=== PATIENT | female | born 1975 | race Caucasian/White ===

== ENCOUNTER 2019-04-30 08:12 | Outpatient (CLI) | payer BC, SELFPAY ==
--- NOTE | ~2019-04-30 | MM_ITS ---
EXAMINATION: MM screening pranay BI w danial HISTORY: Screening mammogram TECHNIQUE: Bilateral rotated lateral cc views. .............Craniocaudal and mediolateral oblique 3-D tomosynthesis images were obtained and synthetic 2-D images were generated. CAD analysis was submitt ed and interpreted. COMPARISON: 02/09/2017 bilateral digital screening mammogram 03/25/2013 bilateral diagnostic digital mammogram BREAST PARENCHYMAL COMPOSITION: The breasts are heterogeneously dense, which may obscure small masses . FINDINGS: There is no evidence of suspicious mass, calcification, or architectural distortion to sugg est malignancy in either breast. There has been no suspicious interval change. IMPRESSION: 1. No mammographic evidence of malignancy. 2. Recommend routine screening mammography in one year. BI-RADS Category 1: Negative Reviewed, dictated and finalized at location B. [facility]
[2019-04-30 10:35] LABS: Cholesterol 152 mg/dL (0-200); HDL Direct 39 mg/dL; Triglycerides 75 mg/dL (<150)
[2019-04-30 10:47] LABS: LDL Cholesterol Direct 96 mg/dL
[2019-04-30 11:27] LABS: Free T4 Free Thyroxine 1.04 ng/mL (0.78-2.19); Vitamin D 25 Hydroxy 32.1 ng/mL
== END 2019-04-30 08:13 | disposition home or self-care (01) ==
PROVIDERS: PCP Family Medicine; Visit Provider Advanced Practice Midwife
DX: Z12.31 Encounter for screening mammogram for malignant neoplasm of breast (principal); Z13.29 Encounter for screening for other suspected endocrine disorder; Z13.220 Encounter for screening for lipoid disorders; D51.1 Vitamin B12 deficiency anemia due to selective vitamin B12 malabsorption with proteinuria; E55.9 Vitamin D deficiency, unspecified
CPT/HCPCS: 36415; 77063; 77067; 80061; 82306; 82607; 84439; 84443

== ENCOUNTER 2020-02-01 08:51 | Outpatient (CLI) | payer BC, SELFPAY ==
--- NOTE | ~2020-02-01 | XR_ITS ---
EXAMINATION: XR lumbar spine 2-3V DATE: 02/01/2020 09:26 INDICATION: Low back pain. TECHNIQUE: 3 views of lumbar spine were obtained. COMPARISON: CT abdomen and pelvis 07/21/16 FINDINGS: Bone alignment is normal. Vertebral body heights and intervertebral disc heights are normal . There are small endplate osteophytes at multiple levels. There is multilevel mild facet joint osteo arthritis. Surgical clips in the right upper quadrant are likely from cholecystectomy. IMPRESSION: 1. Mild lumbar spondylosis. Reviewed, dictated and finalized at location A. Y AND FOOD LABORATORY ASSISTANT IMPRESSION: 1. Mild lumbar spondylosis.
== END 2020-02-01 08:52 | disposition home or self-care (01) ==
LOC: ANHIMG 08:59
PROVIDERS: PCP Family Medicine; Visit Provider Nurse Practitioner Family
DX: M47.816 Spondylosis without myelopathy or radiculopathy, lumbar region (principal); G89.29 Other chronic pain
CPT/HCPCS: 72100

== ENCOUNTER 2020-10-21 07:06 | Outpatient (CLI) | payer BC, SELFPAY ==
--- NOTE | ~2020-10-21 | MR_ITS ---
EXAMINATION: MR lumbar spine wo con EXAM DATE: 10/21/2020 08:48 INDICATION: M54.41 - Lumbago with sciatica, right side. Low back pain. TECHNIQUE: Multi-sequential, multiplanar MR images of the lumbar spine were obtained without contrast . Sagittal T1, T2, T2 fat saturation images. Axial T2 weighted images. There is no prior study for comparison. FINDINGS: Several small vertebral body hemangiomas. Mild lower lumbar disc desiccation. Small annular fissure at L5-S1. The vertebral bodies are aligned in the AP dimension. The conus medullaris termina cierra at the L1/2 level and has normal signal intensity and morphology. Paraspinal soft tissue is unre markable. Level by level evaluation: T12-L1: Disc does not extend beyond the endplate margin. Facet arthropathy: None. Neural foraminal stenosis: No stenosis. Central canal stenosis: No stenosis. L1-L2: Disc does not extend beyond the endplate margin. Facet arthropathy: None. Neural foraminal stenosis: No stenosis. Central canal stenosis: No stenosis. L2-L3: Disc does not extend beyond the endplate margin. Facet arthropathy: Mild. Neural foraminal stenosis: No stenosis. Central canal stenosis: No stenosis. L3-L4: There is a mild diffuse disc bulge. Facet arthropathy: Mild to moderate . Neural foraminal stenosis: No stenosis. Central canal stenosis: No stenosis. L4-L5: There is a mild diffuse disc bulge. Facet arthropathy: Mild to moderate. Neural foraminal stenosis: Mild bilateral. Central canal stenosis: No stenosis. L5-S1: There is a mild diffuse disc bulge. Facet arthropathy: Mild to moderate left, mild right. Neural foraminal stenosis: Mild bilateral. Central canal stenosis: No stenosis. IMPRESSION: 1. Mild lower lumbar spondylosis. Reviewed, dictated and finalized at location B.
== END 2020-10-21 07:07 | disposition home or self-care (01) ==
LOC: ANHIMG 07:12
PROVIDERS: PCP Family Medicine; Visit Provider Nurse Practitioner Family
DX: M47.817 Spondylosis without myelopathy or radiculopathy, lumbosacral region (principal); M48.07 Spinal stenosis, lumbosacral region
CPT/HCPCS: 72148

== ENCOUNTER 2020-12-18 09:07 | Outpatient (CLI) | payer BC, SELFPAY ==
--- NOTE | ~2020-12-18 | MM_ITS ---
EXAMINATION: MM screening pranay BI w danial HISTORY: Screening mammogram TECHNIQUE: Craniocaudal and mediolateral oblique 3-D tomosynthesis images were obtained and synthetic 2-D images were generated. CAD analysis was submitted and interpreted. COMPARISON: Numerous , 02/09/2017 bilateral digital screening mammogram examinations BREAST PARENCHYMAL COMPOSITION: The breasts are heterogeneously dense, which may obscure small masses . FINDINGS: There is no evidence of suspicious mass, calcification, or architectural distortion to sugg est malignancy in either breast. There has been no suspicious interval change. IMPRESSION: 1. No mammographic evidence of malignancy. 2. Recommend routine screening mammography in one year. BI-RADS Category 1: Negative Reviewed, dictated and finalized at location A.
== END 2020-12-18 09:08 | disposition home or self-care (01) ==
LOC: ANHIMG 09:09
PROVIDERS: PCP Family Medicine; Visit Provider Advanced Practice Midwife
DX: Z12.31 Encounter for screening mammogram for malignant neoplasm of breast (principal)
CPT/HCPCS: 77063; 77067

== ENCOUNTER 2021-02-10 09:28 | Outpatient (CLI) | payer BC, SELFPAY ==
[2021-02-10 10:11] LABS: Basophils Percent Auto 0.5 % (0.2-1.2); Eosinophils Absolute Auto 0.2 K/mm3 (0-0.3); Eosinophils Percent Auto 1.9 % (0-4.4); Hematocrit 35.2 % (37.0-47.0); Hemoglobin 11.1 g/dL (12.0-15.0); Immature Granulocyte Absolute 0.03 K/mm3 (0.00-0.031); Immature Granulocyte Percent A 0.4 % (0-0.5); Lymphocytes Percent Auto 26.5 % (18.3-44.2); Mean Corpuscular HGB Conc 31.5 g/dl (32-36); Mean Corpuscular Hemoglobin 24.2 pg (26-34); Mean Corpuscular Volume 76.7 fl (80-100); Mean Platelet Volume 9.1 fl (7.4-10.4); Monocytes Absolute Auto 0.5 K/mm3 (0.1-0.6); Monocytes Percent Auto 6.3 % (2.6-8.5); Neutrophils Absolute Auto 5.3 K/mm3 (1.3-6.7); Neutrophils Percent Auto 64.4 % (45.5-73.1); Platelet Count Result 411 k/mm3 (150-375); Red Blood Count 4.59 M/mm3 (4.2-5.4); Red Cell Distribution Width 16.2 % (11.5-14.5); White Blood Count 8.3 K/mm3 (4.5-10.0)
[2021-02-10 10:24] LABS: Alanine Aminotransferase 16 U/L (4-35); Albumin Level 4.5 g/dL (3.5-5.1); Alkaline Phosphatase 100 U/L (38-126); Anion Gap 10 mmol/L (8-16); Aspartate Amino Transferase 20 U/L (14-36); Bilirubin,Total 0.5 mg/dL (0.2-1.3); Blood Urea Nitrogen 17 mg/dL (7-17); Calcium 9.3 mg/dL (8.4-10.2); Carbon Dioxide 23 mmol/L (22-30); Chloride 104 mmol/L (98-107); Cholesterol 176 mg/dL (0-200); Estimated Glomerular Filt Rate > 60; Glucose 101 mg/dL (65-110); HDL Direct 42 mg/dL; Potassium 4.1 mmol/L (3.4-5.0); Sodium 137 mmol/L (137-145); Triglycerides 67 mg/dL (<150)
[2021-02-10 10:35] LABS: LDL Cholesterol Direct 113 mg/dL
[2021-02-10 11:34] LABS: Vitamin D 25 Hydroxy 39.7 ng/mL
== END 2021-02-10 09:29 | disposition home or self-care (01) ==
PROVIDERS: PCP Family Medicine; Visit Provider Nurse Practitioner Family
DX: Z13.220 Encounter for screening for lipoid disorders (principal); Z13.29 Encounter for screening for other suspected endocrine disorder; E55.9 Vitamin D deficiency, unspecified; D51.9 Vitamin B12 deficiency anemia, unspecified; R25.2 Cramp and spasm
CPT/HCPCS: 36415; 80053; 80061; 82306; 82607; 83735; 84443; 85025

== ENCOUNTER 2021-03-15 09:34 | Outpatient (CLI) | payer BC, SELFPAY ==
[2021-03-15 09:53] LABS: Hematocrit 37.1 % (37.0-47.0); Hemoglobin 11.5 g/dL (12.0-15.0); Mean Corpuscular Hemoglobin 24.2 pg (26-34); Mean Corpuscular Volume 78.1 fl (80-100); Mean Platelet Volume 8.8 fl (7.4-10.4); Platelet Count Result 401 k/mm3 (150-375); Red Blood Count 4.75 M/mm3 (4.2-5.4); Red Cell Distribution Width 16.1 % (11.5-14.5); White Blood Count 8.6 K/mm3 (4.5-10.0)
== END 2021-03-15 09:35 | disposition home or self-care (01) ==
PROVIDERS: PCP Family Medicine; Visit Provider Nurse Practitioner Family
DX: D69.6 Thrombocytopenia, unspecified (principal)
CPT/HCPCS: 36415; 85027

== ENCOUNTER 2021-05-13 11:10 | Outpatient (CLI) | payer BC, SELFPAY ==
[2021-05-13 14:06] LABS: Hematocrit 39.1 % (37.0-47.0); Hemoglobin 12.2 g/dL (12.0-15.0); Mean Corpuscular HGB Conc 31.2 g/dl (32-36); Mean Corpuscular Hemoglobin 25.4 pg (26-34); Mean Corpuscular Volume 81.5 fl (80-100); Mean Platelet Volume 9.8 fl (7.4-10.4); Platelet Count Result 383 k/mm3 (150-375); Red Cell Distribution Width 17.8 % (11.5-14.5); White Blood Count 8.1 K/mm3 (4.5-10.0)
[2021-05-13 14:37] LABS: Iron 50 ug/dL (37-170)
[2021-05-13 14:46] LABS: Percent Iron Saturation 13 % (20-50)
== END 2021-05-13 11:11 | disposition home or self-care (01) ==
PROVIDERS: PCP Family Medicine; Visit Provider Nurse Practitioner Family
DX: R79.89 Other specified abnormal findings of blood chemistry (principal)
CPT/HCPCS: 36415; 83540; 83550; 85027

== ENCOUNTER 2021-07-02 13:11 | Outpatient (CLI) | payer BC, SELFPAY ==
[2021-07-02 13:40] LABS: Basophils Absolute Auto 0.1 K/mm3 (0.0-0.1); Basophils Percent Auto 0.6 % (0.2-1.2); Eosinophils Absolute Auto 0.1 K/mm3 (0-0.3); Hematocrit 41.9 % (37.0-47.0); Immature Granulocyte Absolute 0.02 K/mm3 (0.00-0.031); Immature Granulocyte Percent A 0.2 % (0-0.5); Lymphocytes Absolute Auto 2.43 K/mm3 (0.9-3.2); Mean Corpuscular Hemoglobin 25.2 pg (26-34); Mean Corpuscular Volume 81.4 fl (80-100); Mean Platelet Volume 9.2 fl (7.4-10.4); Monocytes Absolute Auto 0.5 K/mm3 (0.1-0.6); Monocytes Percent Auto 5.6 % (2.6-8.5); Neutrophils Absolute Auto 5.3 K/mm3 (1.3-6.7); Neutrophils Percent Auto 63.6 % (45.5-73.1); Platelet Count Result 416 k/mm3 (150-375); Red Blood Count 5.15 M/mm3 (4.2-5.4); Red Cell Distribution Width 16.4 % (11.5-14.5); White Blood Count 8.4 K/mm3 (4.5-10.0)
[2021-07-02 13:52] LABS: CRP 0.7 mg/dL (<1.0)
[2021-07-02 14:10] LABS: Iron 81 ug/dL (37-170)
[2021-07-02 14:20] LABS: Percent Iron Saturation 20 % (20-50)
[2021-07-03 01:12] LABS: Erythrocyte Sedimentation Rate 14 mm/hr (0-20)
== END 2021-07-02 13:12 | disposition home or self-care (01) ==
PROVIDERS: PCP Family Medicine; Visit Provider Internal Medicine Hematology & Oncology
DX: D50.9 Iron deficiency anemia, unspecified (principal)
CPT/HCPCS: 36415; 82728; 83540; 83550; 85025; 85652; 86140

== ENCOUNTER 2021-08-20 13:20 | Outpatient (CLI) | payer BC, SELFPAY ==
--- NOTE | ~2021-08-20 | MMUS_ITS ---
EXAMINATION: MM diagnostic pranay RT w danial, US breast RT complete HISTORY: Lateral right breast pain TECHNIQUE: ML, MLO and CC 3-D tomosynthesis images of the right breast were performed and synthetic 2 -D images were generated. CAD analysis was submitted and interpreted. High resolution complete right breast ultrasound including all 4 quadrants and subareolar area was performed. COMPARISON: 12/14/2020, 04/2019, 02/09/2017 bilateral screening mammogram examinations BREAST PARENCHYMAL COMPOSITION: The breasts are heterogeneously dense, which may obscure small masses . FINDINGS: MAMMOGRAPHIC FINDINGS: No suspicious mass or architectural distortion, malignant calcification, skin thickening or retractio n or significant new or developing density is detected. ULTRASOUND: 10:00 5 cm from nipple: 8.5 x 5.5 x 7 mm simple cyst with through transmission posterior enhancement. No suspicious mass or shadowing of the right breast is detected. IMPRESSION: 1. Benign findings; no mammographic evidence of malignancy 2. Routine mammographic screening is recommended BI-RADS Category 2: Benign finding(s). Reviewed, dictated and finalized at location A. IMPRESSION: 1. Benign findings; no mammographic evidence of malignancy 2. Routine mammographic screening is recommended BI-RADS Category 2: Benign finding(s).
== END 2021-08-20 13:21 | disposition home or self-care (01) ==
PROVIDERS: PCP Family Medicine; Visit Provider Obstetrics & Gynecology
DX: N64.4 Mastodynia (principal)
CPT/HCPCS: 76641; 77061; 77065; G0279

== ENCOUNTER 2021-09-06 15:20 | Outpatient (CLI) | payer BC, SELFPAY ==
[2021-09-06 15:41] LABS: Anion Gap 9 mmol/L (8-16); Blood Urea Nitrogen 14 mg/dL (7-17); Calcium 8.7 mg/dL (8.4-10.2); Carbon Dioxide 23 mmol/L (22-30); Chloride 105 mmol/L (98-107); Estimated Glomerular Filt Rate > 60; Glucose 87 mg/dL (65-110); Potassium 3.8 mmol/L (3.4-5.0); Sodium 137 mmol/L (137-145)
== END 2021-09-06 15:21 | disposition home or self-care (01) ==
LOC: ANHLAB 15:21
PROVIDERS: PCP Family Medicine; Visit Provider Family Medicine
DX: R60.0 Localized edema (principal)
CPT/HCPCS: 36415; 80048

== ENCOUNTER 2021-10-14 12:33 | Outpatient (CLI) | payer BC, SELFPAY ==
[2021-10-14 13:33] LABS: Basophils Absolute Auto 0.1 K/mm3 (0.0-0.1); Basophils Percent Auto 0.9 % (0.2-1.2); Eosinophils Absolute Auto 0.2 K/mm3 (0-0.3); Eosinophils Percent Auto 2.5 % (0-4.4); Hematocrit 41.1 % (37.0-47.0); Hemoglobin 13.7 g/dL (12.0-15.0); Immature Granulocyte Absolute 0.04 K/mm3 (0.00-0.031); Immature Granulocyte Percent A 0.5 % (0-0.5); Lymphocytes Absolute Auto 2.81 K/mm3 (0.9-3.2); Lymphocytes Percent Auto 36.8 % (18.3-44.2); Mean Corpuscular HGB Conc 33.3 g/dl (32-36); Mean Corpuscular Hemoglobin 26.9 pg (26-34); Mean Corpuscular Volume 80.6 fl (80-100); Mean Platelet Volume 9.1 fl (7.4-10.4); Monocytes Absolute Auto 0.6 K/mm3 (0.1-0.6); Monocytes Percent Auto 7.7 % (2.6-8.5); Neutrophils Absolute Auto 3.9 K/mm3 (1.3-6.7); Neutrophils Percent Auto 51.6 % (45.5-73.1); Platelet Count Result 382 k/mm3 (150-375); Red Cell Distribution Width 15.4 % (11.5-14.5); White Blood Count 7.6 K/mm3 (4.5-10.0)
[2021-10-14 13:42] LABS: Iron 55 ug/dL (37-170)
[2021-10-14 13:51] LABS: Percent Iron Saturation 13 % (20-50)
== END 2021-10-14 12:34 | disposition home or self-care (01) ==
PROVIDERS: PCP Family Medicine; Visit Provider Internal Medicine Hematology & Oncology
DX: D50.9 Iron deficiency anemia, unspecified (principal)
CPT/HCPCS: 36415; 82728; 83540; 83550; 85025

== ENCOUNTER 2022-02-11 08:26 | Outpatient (CLI) | payer BC, SELFPAY ==
--- NOTE | ~2022-02-11 | MM_ITS ---
EXAMINATION: MM screening pranay BI w danial HISTORY: Screening TECHNIQUE: Craniocaudal and mediolateral oblique 3-D tomosynthesis images were obtained and synthetic 2-D images were generated. CAD analysis was submitted and interpreted. COMPARISON: Comparison to multiple prior studies sequentially, with oldest reviewed study dated 02/26. BREAST PARENCHYMAL COMPOSITION: The breasts are heterogeneously dense, which may obscure small masses . FINDINGS: There is developing asymmetry in the upper outer quadrant of the left breast. The right kranthi ast is stable without evidence for malignancy. IMPRESSION: 1. Developing right breast asymmetry. 2. Additional mammographic views and possible breast ultrasound are recommended. BI-RADS Category 0: Incomplete: Needs additional imaging evaluation. Reviewed, dictated and finalized at location A. 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 Developing right breast asymmetry. 2. Additional mammographic views and possible breast ultrasound are recommended . BI-RADS Category 0: Incomplete: Needs additional imaging evaluation.
== END 2022-02-11 08:27 | disposition home or self-care (01) ==
PROVIDERS: PCP Family Medicine; Visit Provider Advanced Practice Midwife
DX: Z12.31 Encounter for screening mammogram for malignant neoplasm of breast (principal); R92.8 Other abnormal and inconclusive findings on diagnostic imaging of breast
CPT/HCPCS: 77063; 77067

== ENCOUNTER 2022-02-12 15:29 | Emergency (ER) | payer BC, SELFPAY ==
--- NOTE | ~2022-02-12 | XR_ITS ---
EXAM: XR foot RT min 3V DATE: 02/12/2022 15:45 HISTORY: dropped dumbbell 4-5 metatarsals an hour ago . COMPARISON: None available. FINDINGS: Normal mineralization. No fracture or dislocation. No lytic or blastic lesion. Joint space s are maintained. Plantar enthesopathy. No erosion or periosteal change. Soft tissues within normal l imits. IMPRESSION: No acute osseous finding in the right foot. Reviewed, dictated and finalized at location K. 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
[2022-02-12 15:29] VITALS: BP 142/72; PULSE 94; RESP 18; TEMP 36.9; O2SAT 99
--- NOTE | 2022-02-12 15:45 | ED.LOWEXIN ---
HPI - Extremity Injury (Lower) General Chief Complaint: Extremity Injury, Lower Stated Complaint: Rt Foot Pain Time Seen by Provider: 02/12/22 15:40 Source: patient Mode of arrival: ambulatory Limitations: no limitations History of Present Illness HPI Narrative: Ms. Jameson is a 46-year-old female patient presenting to clinic today with complaints of right foot pain after dropping a 15 lb weight on top of her right foot. She reports that she had the 15 lb weight sitting on a garbage can to keep their [place] from getting in the garbage and she lifted the trash can up the throw something away and put the weight back down in a roll off and landed on her foot Related Data Home Medications Medication Instructions Recorded Confirmed cyclobenzaprine 10 mg tablet 10 mg PO TID PRN Muscle Spasm 02/12/22 02/12/22 Allergies Allergy/AdvReac Type Severity Reaction Status Date / Time No Known Allergies Allergy Verified 02/12/22 15:42 Review of Systems Review of Systems: Pertinent positives per HPI. Patient denies any fever, chills, rash, headache, visual changes, dizziness, cough, runny nose, sore throat, shortness of breath, chest pain, palpitations, nausea, vomiting, diarrhea, constipation, abdominal pain, or any urinary issues. [facility] Past Medical History Medical History Benign positional vertigo BMI 34.0-34.9,adult BMI 36.0-36.9,adult BMI 37.0-37.9, adult COVID-19 Leg edema Family History Family History Father Family history of malignant neoplasm of urinary bladder COVID-19 Mother No problems noted. Sibling No problems noted. 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 There is no relevant family history pertinent to the patient complaint. Exam Narrative: General: Well-developed, well nourished, in no apparent distress Head: Normocephalic, atraumatic. Cardio: Regular rate and rhythm, s1 and s2 normal, no murmur appreciated. Resp: Clear to auscultation bilaterally, no rhonchi, rales, wheezing or rubs. Musculoskeletal: No deformity, bruising and swelling over the right 5th metatarsal and phalanx, tender to palpation over the 5th and 4th metatarsals and the 5th phalanx, limited range of motion of the 5th and 4th toes due to pain, muscle strength strong and equal, peripheral pulse strong, no cyanosis, normal gait and station Course Course Emergency Course: Portions of this record may have been created with voice recognition software. Level of Care: Express Care Visit Vital Signs Vital signs: Vital signs reviewed MDM - Extremity Injury (Lower) MDM Narrative Medical decision making narrative: At the time of visit patient is resting comfortably on the exam table. Imaging Data Radiologist's impression: Close Foot X-Ray (Signed) YoussefJose - 02/12/22 Launch[facility] [address] XRay Report Signed Patient: Sheri Jameson : 1975 MR#: [id number] Age/Sex: 46 / F Acct:[id number] Loc: [facility]? ? ADM Date: 02/12/22Attending Dr: Ordering Physician: Yomi Ann APRN Date of Service: 02/12/22 Procedure(s): XR foot RT min 3V Accession Number(s): [id number] cc: Yomi Ann APRN; Leonides Broderick MD~ EXAM:? XR foot RT min 3V DATE: 02/12/2022 15:45 HISTORY: dropped dumbbell
== END 2022-02-12 16:00 | disposition home or self-care (01) ==
PROVIDERS: Emergency Provider Nurse Practitioner Family; PCP Family Medicine
DX: S90.31XA Contusion of right foot, initial encounter (principal); W20.8XXA Other cause of strike by thrown, projected or falling object, initial encounter; Z86.16 Personal history of COVID-19
CPT/HCPCS: 73630; 99213; G0463

== ENCOUNTER 2022-03-17 11:56 | Outpatient (CLI) | payer BC, SELFPAY ==
--- NOTE | ~2022-03-17 | MMUS_ITS ---
EXAMINATION: MM diagnostic pranay LT w danial, US breast LT limited HISTORY: Follow-up left breast asymmetry TECHNIQUE: Additional 3-D tomosynthesis images of the left breast were performed and synthetic 2-D im ages were generated. CAD analysis was submitted and interpreted. High resolution Limited left breast ultrasound was performed. COMPARISON: 02/11/2022 BREAST PARENCHYMAL COMPOSITION: The breasts are heterogeneously dense, which may obscure small masses FINDINGS: MAMMOGRAPHIC FINDINGS: There are no suspicious masses, calcifications or architectural distortion in the left breast to sugg est malignancy. ULTRASOUND: Limited left breast ultrasound: At 1:00, 8 cm from the nipple there is an oval hypoechoic mass measur ing 8 x 7 x 5 mm with small internal cysts, likely a cluster of microcysts. At 3:00, 2 cm from the ni pple, there is a probable benign complicated cyst measuring 4 mm. . IMPRESSION: 1. Probable benign left breast masses. 2. Recommend 6 month follow-up left breast ultrasound BI-RADS category 3, probably benign findings. Reviewed, dictated and finalized at location A. RMATION TECHNOLOGY DIRECTOR IMPRESSION: 1. Probable benign left breast masses. 2. Recommend 6 month follow-up left breast ultrasound BI-RADS category 3, probably benign findings.
== END 2022-03-17 11:57 | disposition home or self-care (01) ==
PROVIDERS: PCP Family Medicine; Visit Provider Advanced Practice Midwife
DX: R92.8 Other abnormal and inconclusive findings on diagnostic imaging of breast (principal); N63.21 Unspecified lump in the left breast, upper outer quadrant; N60.02 Solitary cyst of left breast
CPT/HCPCS: 76642; 77061; 77065; G0279

== ENCOUNTER 2022-03-25 09:37 | Outpatient (CLI) | payer BC, SELFPAY ==
--- NOTE | ~2022-03-25 | XR_ITS ---
Right foot Technique: AP, oblique, and lateral views were obtained. Clinical History: Pain Findings: No acute fracture or dislocation is seen. Osseous alignment is anatomic. Joint spaces are p reserved without erosive or degenerative change. Soft tissues are unremarkable. Impression: Unremarkable right foot radiographs. Reviewed, dictated and finalized at location . 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
--- NOTE | ~2022-03-25 | XR_ITS ---
Right foot Technique: AP, oblique, and lateral views were obtained. Clinical History: Pain Findings: No acute fracture or dislocation is seen. Osseous alignment is anatomic. Joint spaces are p reserved without erosive or degenerative change. Soft tissues are unremarkable. Impression: Unremarkable right foot radiographs. Reviewed, dictated and finalized at location . ACCOUNTING CLERK Impression: Unremarkable right foot radiographs.
[2022-03-25 10:07] LABS: Basophils Percent Auto 0.6 % (0.2-1.2); Eosinophils Absolute Auto 0.2 K/mm3 (0-0.3); Eosinophils Percent Auto 2.5 % (0-4.4); Hematocrit 40.4 % (37.0-47.0); Immature Granulocyte Absolute 0.02 K/mm3 (0.00-0.031); Immature Granulocyte Percent A 0.3 % (0-0.5); Lymphocytes Absolute Auto 2.25 K/mm3 (0.9-3.2); Lymphocytes Percent Auto 33.6 % (18.3-44.2); Mean Corpuscular HGB Conc 32.2 g/dl (32-36); Mean Corpuscular Hemoglobin 27.4 pg (26-34); Mean Corpuscular Volume 85.2 fl (80-100); Mean Platelet Volume 9.1 fl (7.4-10.4); Monocytes Absolute Auto 0.5 K/mm3 (0.1-0.6); Neutrophils Absolute Auto 3.7 K/mm3 (1.3-6.7); Platelet Count Result 365 k/mm3 (150-375); Red Blood Count 4.74 M/mm3 (4.2-5.4); Red Cell Distribution Width 14.3 % (11.5-14.5); White Blood Count 6.7 K/mm3 (4.5-10.0)
[2022-03-25 10:17] LABS: Alanine Aminotransferase 29 U/L (6-35); Albumin Level 4.2 g/dL (3.5-5.1); Alkaline Phosphatase 81 U/L (38-126); Anion Gap 6 mmol/L (8-16); Aspartate Amino Transferase 28 U/L (14-36); Bilirubin,Total 0.4 mg/dL (0.2-1.3); Blood Urea Nitrogen 16 mg/dL (7-17); Calcium 8.8 mg/dL (8.4-10.2); Carbon Dioxide 25 mmol/L (22-30); Chloride 108 mmol/L (98-107); Cholesterol 163 mg/dL (0-200); Estimated Glomerular Filt Rate > 60; Glucose 91 mg/dL (65-110); HDL Direct 34 mg/dL; Potassium 4.3 mmol/L (3.4-5.0); Sodium 139 mmol/L (137-145); Triglycerides 97 mg/dL (<150)
[2022-03-25 10:28] LABS: LDL Cholesterol Direct 97 mg/dL
[2022-03-25 10:51] LABS: Iron 105 ug/dL (37-170)
[2022-03-25 11:05] LABS: Percent Iron Saturation 29 % (20-50)
== END 2022-03-25 09:38 | disposition home or self-care (01) ==
PROVIDERS: PCP Family Medicine; Referring Provider Internal Medicine Hematology & Oncology; Visit Provider Nurse Practitioner Family
DX: M79.671 Pain in right foot (principal); D50.9 Iron deficiency anemia, unspecified; R59.1 Generalized enlarged lymph nodes; Z13.220 Encounter for screening for lipoid disorders; Z13.29 Encounter for screening for other suspected endocrine disorder; E55.9 Vitamin D deficiency, unspecified
CPT/HCPCS: 36415; 73630; 80053; 80061; 82306; 82728; 83540; 83550; 84443; 85025

== ENCOUNTER 2022-07-13 15:59 | Outpatient (CLI) | payer BC, SELFPAY ==
--- NOTE | ~2022-07-13 | XR_ITS ---
XR knee LT min 4V DATE: 07/13/2022 16:16 INDICATION: Left knee pain. No known injury. TECHNIQUE: Halbur and standing AP, PA and lateral views COMPARISON: May 14, 2012 left knee FINDINGS: There is interval severe medial compartment joint space narrowing with [id number] and pro minent periarticular spurring. The lateral compartment joint space is well preserved. There is mild to moderate periarticular spurring at the patellofemoral joint. No fracture or dislocation or joint effusion. No radiopaque intra-articular loose body or chondrocalc inosis is evident. No fracture, dislocation, periosteal reaction or bone destruction. 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
== END 2022-07-13 16:00 | disposition home or self-care (01) ==
LOC: ANHIMG 16:01
PROVIDERS: PCP Family Medicine; Visit Provider Family Medicine
DX: M17.12 Unilateral primary osteoarthritis, left knee (principal); M25.562 Pain in left knee
CPT/HCPCS: 73564

== ENCOUNTER → 2022-10-25 08:51 | Outpatient (CLI) | payer BC, SELFPAY ==
--- NOTE | ~2022-10-25 | MR_ITS ---
MRI of the left knee Clinical history: Pain Technique: Coronal proton density and proton density-weighted images, sagittal proton-density and T2 fat-sat images, and axial proton-density fat-saturated images were acquired. Findings: Anterior and posterior cruciate ligaments are intact. Medial collateral ligament and the la teral collateral ligament complex are intact. Popliteus tendon is intact. Lateral meniscus is intact, without evidence of tear. There is complex tearing of the posterior horn and body of the medial meniscus, which are largely macerated appearance. There is extensive high-grade chondromalacia on both sides of the medial compartment with subchondral reactive marrow edema and early subchondral cystic change in the medial tibial plateau. There are me dial joint line osteophytes. Articular cartilage in the lateral compartment is relatively well-preser kirk. There is extensive high-grade chondromalacia over the patellar apex extending to the medial face t. There is patchy moderate chondromalacia the femoral trochlea. Extensor mechanism is intact. No significant joint effusion. Minimal Bran's cyst present. Impression: Extensive complex tearing of the posterior horn and body of the medial meniscus. Severe osteoarthritis of the medial compartment, as detailed above. Moderate chondromalacia of the patellofemoral compartment. Minimal Bran's cyst. Reviewed, dictated and finalized at location . Impression: Extensive complex tearing of the posterior horn and body of the medial meniscus . Severe osteoarthritis of the medial compartment, as detailed above. Moderate chondromalacia of the patellofemoral compartment. Minimal Bran's cyst.
== END ==
DX: S83.232A Complex tear of medial meniscus, current injury, left knee, initial encounter (principal); X58.XXXA Exposure to other specified factors, initial encounter; M17.12 Unilateral primary osteoarthritis, left knee
CPT/HCPCS: 73721

== ENCOUNTER 2022-11-21 18:03 | Emergency (ER) | payer BC, SELFPAY ==
[2022-11-21 18:27] VITALS: BP 161/88; PULSE 84; RESP 18; TEMP 36.6; O2SAT 100
--- NOTE | 2022-11-21 18:40 | PC.NURSE ---
CBC & CMP sent to lab
[2022-11-21 18:42] LABS: Basophils Absolute Auto 0.1 K/mm3 (0.0-0.1); Basophils Percent Auto 0.4 % (0.2-1.2); Eosinophils Absolute Auto 0.2 K/mm3 (0-0.3); Eosinophils Percent Auto 1.6 % (0-4.4); Hematocrit 45.3 % (37.0-47.0); Hemoglobin 14.6 g/dL (12.0-15.0); Immature Granulocyte Absolute 0.08 K/mm3 (0.00-0.031); Immature Granulocyte Percent A 0.6 % (0-0.5); Lymphocytes Absolute Auto 3.29 K/mm3 (0.9-3.2); Lymphocytes Percent Auto 26.6 % (18.3-44.2); Mean Corpuscular HGB Conc 32.2 g/dl (32-36); Mean Corpuscular Volume 86.9 fl (80-100); Mean Platelet Volume 9.3 fl (7.4-10.4); Monocytes Absolute Auto 0.8 K/mm3 (0.1-0.6); Monocytes Percent Auto 6.2 % (2.6-8.5); Neutrophils Percent Auto 64.6 % (45.5-73.1); Platelet Count Result 396 k/mm3 (150-375); Red Blood Count 5.21 M/mm3 (4.2-5.4); Red Cell Distribution Width 14.3 % (11.5-14.5); White Blood Count 12.4 K/mm3 (4.5-10.0)
[2022-11-21 18:53] LABS: Alanine Aminotransferase 40 U/L (6-35); Albumin Level 4.5 g/dL (3.5-5.1); Alkaline Phosphatase 75 U/L (38-126); Anion Gap 10 mmol/L (8-16); Aspartate Amino Transferase 33 U/L (14-36); Bilirubin,Total 0.4 mg/dL (0.2-1.3); Blood Urea Nitrogen 15 mg/dL (7-17); Calcium 9.7 mg/dL (8.4-10.2); Carbon Dioxide 25 mmol/L (22-30); Chloride 104 mmol/L (98-107); Estimated CRCL calculation 97 ml/min; Estimated Glomerular Filt Rate > 60; Glucose 101 mg/dL (65-110); Potassium 4.5 mmol/L (3.4-5.0); Sodium 139 mmol/L (137-145)
--- NOTE | 2022-11-21 21:27 | PC.NURSE ---
Pt ambulated on crutches with at side, stated she was not staying and will return to ED if needed. Stated was going home with .
== END 2022-11-21 21:27 | disposition left against medical advice (07) ==
PROVIDERS: Emergency Provider Emergency Medicine; PCP Family Medicine
DX: R10.9 Unspecified abdominal pain (principal)
CPT/HCPCS: 36415; 80053; 85025; 99199

== ENCOUNTER 2022-12-28 09:53 | Outpatient (CLI) | payer BC, SELFPAY ==
[2022-12-28 10:53] LABS: Basophils Absolute Auto 0.1 K/mm3 (0.0-0.1); Basophils Percent Auto 0.7 % (0.2-1.2); Eosinophils Absolute Auto 0.1 K/mm3 (0-0.3); Eosinophils Percent Auto 1.6 % (0-4.4); Hematocrit 43.2 % (37.0-47.0); Hemoglobin 14.1 g/dL (12.0-15.0); Immature Granulocyte Absolute 0.03 K/mm3 (0.00-0.031); Immature Granulocyte Percent A 0.3 % (0-0.5); Lymphocytes Absolute Auto 2.56 K/mm3 (0.9-3.2); Lymphocytes Percent Auto 28.7 % (18.3-44.2); Mean Corpuscular HGB Conc 32.6 g/dl (32-36); Mean Corpuscular Hemoglobin 28.6 pg (26-34); Mean Corpuscular Volume 87.6 fl (80-100); Mean Platelet Volume 9.4 fl (7.4-10.4); Monocytes Absolute Auto 0.6 K/mm3 (0.1-0.6); Monocytes Percent Auto 6.7 % (2.6-8.5); Neutrophils Absolute Auto 5.5 K/mm3 (1.3-6.7); Platelet Count Result 397 k/mm3 (150-375); Red Blood Count 4.93 M/mm3 (4.2-5.4); Red Cell Distribution Width 14.1 % (11.5-14.5); White Blood Count 8.9 K/mm3 (4.5-10.0)
[2022-12-28 11:01] LABS: Alanine Aminotransferase 18 U/L (6-35); Albumin Level 4.4 g/dL (3.5-5.1); Alkaline Phosphatase 83 U/L (38-126); Anion Gap 5 mmol/L (8-16); Aspartate Amino Transferase 21 U/L (14-36); Bilirubin,Total 0.6 mg/dL (0.2-1.3); Blood Urea Nitrogen 13 mg/dL (7-17); Calcium 9.3 mg/dL (8.4-10.2); Carbon Dioxide 30 mmol/L (22-30); Chloride 102 mmol/L (98-107); Cholesterol 174 mg/dL (0-200); Estimated Glomerular Filt Rate > 60; Glucose 87 mg/dL (65-110); HDL Direct 44 mg/dL; Potassium 4.5 mmol/L (3.4-5.0); Sodium 137 mmol/L (137-145); Triglycerides 85 mg/dL (<150)
[2022-12-28 11:12] LABS: LDL Cholesterol Direct 109 mg/dL
[2022-12-28 11:27] LABS: Vitamin D 25 Hydroxy 49.3 ng/mL
== END 2022-12-28 09:54 | disposition home or self-care (01) ==
LOC: ANHLAB 09:54
PROVIDERS: PCP Family Medicine; Visit Provider Family Medicine
DX: D64.9 Anemia, unspecified (principal); Z13.220 Encounter for screening for lipoid disorders; D51.9 Vitamin B12 deficiency anemia, unspecified; E55.9 Vitamin D deficiency, unspecified
CPT/HCPCS: 36415; 80053; 80061; 82306; 82607; 84443; 85025

== ENCOUNTER 2023-01-10 10:00 | Emergency (ER) | payer BC, SELFPAY ==
--- NOTE | ~2023-01-10 | CT_ITS ---
CT of the Abdomen and Pelvis: Indication: Abdominal pain Technique: 2.5 mm axial scans were obtained through the abdomen and pelvis following intravenous adm inistration of 100 cc of Omnipaque 350. Dose reduction technique was used on this scan by utilizing a utomated exposure control and iterative reconstruction technique. The dose-length product (DLP) was 1 163.71 mGy-cm. Findings: Scans through the lung bases are unremarkable. Minimal central intrahepatic biliary prominence is probably related to prior cholecystectomy. The spl een, pancreas, adrenals and kidneys are within normal limits. No evidence of aortic aneurysm. No ly mphadenopathy. No bowel obstruction or bowel wall thickening. There is no evidence to suggest acute appendicitis. Images through the pelvis were performed. Urinary bladder unremarkable. 2.8 cm right ovarian cyst pre sent. No other adnexal mass seen. No ascites. Impression: 2.8 cm right ovarian cyst, of doubtful clinical significance. Minimal intrahepatic biliary prominence is likely related to prior cholecystectomy. Reviewed, dictated and finalized at [facility]. Impression: 2.8 cm right ovarian cyst, of doubtful clinical significance. Minimal intrahepatic biliary prominence is likely related to prior cholecystect jhony.
[2023-01-10 10:24] VITALS: BP 139/70; PULSE 68; RESP 16; TEMP 36.3
[2023-01-10 10:44] LABS: Basophils Absolute Auto 0.1 K/mm3 (0.0-0.1); Basophils Percent Auto 0.8 % (0.2-1.2); Eosinophils Absolute Auto 0.2 K/mm3 (0-0.3); Eosinophils Percent Auto 1.4 % (0-4.4); Hematocrit 45.3 % (37.0-47.0); Hemoglobin 14.4 g/dL (12.0-15.0); Immature Granulocyte Absolute 0.04 K/mm3 (0.00-0.031); Immature Granulocyte Percent A 0.4 % (0-0.5); Lymphocytes Absolute Auto 3.65 K/mm3 (0.9-3.2); Lymphocytes Percent Auto 34.4 % (18.3-44.2); Mean Corpuscular HGB Conc 31.8 g/dl (32-36); Mean Corpuscular Hemoglobin 28.2 pg (26-34); Mean Corpuscular Volume 88.8 fl (80-100); Mean Platelet Volume 9.4 fl (7.4-10.4); Monocytes Absolute Auto 0.7 K/mm3 (0.1-0.6); Monocytes Percent Auto 6.8 % (2.6-8.5); Neutrophils Percent Auto 56.2 % (45.5-73.1); Platelet Count Result 382 k/mm3 (150-375); Red Cell Distribution Width 14.2 % (11.5-14.5); White Blood Count 10.6 K/mm3 (4.5-10.0)
[2023-01-10 10:55] LABS: Alanine Aminotransferase 16 U/L (6-35); Albumin Level 4.5 g/dL (3.5-5.1); Alkaline Phosphatase 76 U/L (38-126); Anion Gap 8 mmol/L (8-16); Aspartate Amino Transferase 18 U/L (14-36); Bilirubin,Total 0.6 mg/dL (0.2-1.3); Blood Urea Nitrogen 21 mg/dL (7-17); Calcium 9.2 mg/dL (8.4-10.2); Carbon Dioxide 28 mmol/L (22-30); Chloride 104 mmol/L (98-107); Estimated CRCL calculation 96 ml/min; Estimated Glomerular Filt Rate > 60; Glucose 82 mg/dL (65-110); Lipase 57 U/L (23-300); Potassium 3.7 mmol/L (3.4-5.0); Sodium 140 mmol/L (137-145)
[2023-01-10 11:07] LABS: Appearance Urine Cloudy (Clear); Bilirubin Urine Negative (Negative); Blood Urine 2+ (Negative); Color Urine Yellow (Yellow); Glucose Urine UA Negative (Negative); Ketones Urine Negative (Negative); Leukocyte Esterase Ur 1+ LEU/UL (Negative); Nitrate Urine Negative (Negative); Protein Urine Negative (Negative); Specific Grav Ur 1.024 (1.001-1.035); Urobilinogen Urine 0.2 mg/dL (<2.0); pH Urine 5.5 (5.0-9.0)
[2023-01-10 11:11] LABS: Squamous Epithelial Cell Urine Many /hpf (Few)
[2023-01-10 11:12] LABS: Bacteria Urine 3+ /hpf
[2023-01-10 11:13] LABS: Add Urine Microscopic? YES
[2023-01-10 11:14] LABS: WBC Urine 21-50 /hpf
--- NOTE | 2023-01-10 11:15 | ED.GENADULT ---
HPI - General Adult General Chief complaint: Abdominal Pain Stated complaint: RT sd Abd pain Time Seen by Provider: 01/10/23 11:02 History of Present Illness HPI narrative: Sheri Jameson is a 47 y/o female with PMhx of appendectomy/ cholecystectomy who reports she was woken out of her sleep at 0200 this morning with right lower quadrant pain that is severe and has not improved. She reports some nausea / no vomiting last ate earlier this morning. Denies any known fever/chills. Last BM was this morning and normal/ denies changes with urination. She states that she has had some vaginal bleeding/ spotting off and on since August and is scheduled for a hysterectomy next month. Related Data Allergies Allergy/AdvReac Type Severity Reaction Status Date / Time No Known Allergies Allergy Verified 01/10/23 11:01 Review of Systems Review of Systems: CONSTITUTIONAL: Denies fever, chills, or sweats. EYES: Denies visual changes, redness, or discharge. ENT: Denies rhinorrhea, congestion, sore throat, or otalgia. CARDIOVASCULAR: Denies chest pain, palpitations, or edema. RESPIRATORY: Denies cough or dyspnea. GASTROINTESTINAL: Reports severe right lower abdominal pain, slight nausea, no vomiting, or diarrhea. GENITOURINARY: Denies dysuria or hematuria. SKIN: Denies rash or itching. MUSCULOSKELETAL: Denies back pain, joint pain, or myalgia. NEUROLOGIC: Denies headache, numbness, dizziness, or weakness. PSYCHIATRIC: Denies anxiety or depression. [facility] Past Medical History Medical History Benign positional vertigo BMI 34.0-34.9,adult BMI 36.0-36.9,adult BMI 37.0-37.9, adult BMI 38.0-38.9,adult COVID-19 Leg edema Surgical History Surgical History H/O knee surgery Family History Family History Father Family history of malignant neoplasm of urinary bladder COVID-19 Mother COPD (chronic obstructive pulmonary disease) Diabetes mellitus Sibling Diabetes mellitus Social History Social History Smoking status: Never smoker Second hand tobacco smoke exposure: Yes Alcohol intake: current Substance use: never Substance use type: does not use Lack of Transportation: No Lack of Food: Never True Current Housing: I Have Housing Concerned About Future Housing: No Difficulty Paying Gas/Electric Bills: No Difficulty Paying for Meds: No Currently Unemployed: No Education: Associate Degree Difficulty w/ Childcare or Family Care: No Living arrangements: with family Occupation/Education: occupation 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 Gender identity (if verbalized by the patient): Female Exam Narrative: GENERAL:appears to be in pain, well-nourished, and in no acute distress. HEAD: Normocephalic, atraumatic. EYES: PERRLA and EOMI. ENT: Nares clear, no rhinorrhea or epistaxis. Mucous membranes moist. Oropharynx without tonsillar hypertrophy exudate or other lesions. NECK: Supple. No adenopathy or masses. No carotid bruits or JVD CHEST: Clear to auscultation. No respiratory distress. No wheezes rales or rhonchi HEART: Regular rate and rhythm. No murmur heard. Normal peripheral pulses. ABDOMEN: Soft, nondistended, normal active bowel sounds, tender to the right lower quadrant EXTREMITIES: Normal range of motion. No edema. SKIN: Warm, dry, no rash. NEURO: No focal deficits. Alert and oriented x3. PSYCH: Normal mood and affect. Course Vital Signs Vital signs: Vital Signs Temperature 36.3 C L 01/10/23 10:24 Pulse Rate 68 01/10/23 10:24 Respiratory Rate 16 01/10/23 10:24 Blood Pressure 139/70 01/10/23 10:24 Oxygen Delivery Room Air 01/10/23 10:24 Temperature 36.3
[2023-01-10] MEDS: MORPHINE SULFATE (*CRX) 4 MG/ML INJ IV PUSH (11:30)
[2023-01-10] MEDS: ONDANSETRON INJ 4 MG/2 ML VIAL IV PUSH (11:30)
[2023-01-10 12:56] VITALS: BP 128/70; PULSE 68; RESP 20; O2SAT 98
== END 2023-01-10 12:57 | disposition home or self-care (01) ==
PROVIDERS: Emergency Medicine; Emergency Provider Nurse Practitioner Family; PCP Family Medicine
DX: N30.01 Acute cystitis with hematuria (principal); Z90.49 Acquired absence of other specified parts of digestive tract; Z86.16 Personal history of COVID-19; Z77.22 Contact with and (suspected) exposure to environmental tobacco smoke (acute) (chronic); N83.201 Unspecified ovarian cyst, right side
CPT/HCPCS: 36415; 74177; 80053; 81001; 81025; 83690; 85025; 87086; 87088; 96374; 96375; 99284; J2270; J2405; Q9967

== ENCOUNTER 2023-01-16 11:39 | Outpatient (CLI) | payer BC, SELFPAY ==
--- NOTE | ~2023-01-16 | MMUS_ITS ---
EXAMINATION: MM diagnostic pranay BI w danial, US breast BI complete HISTORY: Probable benign left breast masses reported on 03/17/2022 left diagnostic mammogram and limi milena left breast ultrasound examination. Screening of right breast. TECHNIQUE: ML, MLO and CC 3-D tomosynthesis images of both breasts were performed and synthetic 2-D i mages were generated. Bilateral rotated lateral CC views. CAD analysis was submitted and interpreted. High resolution bilateral complete breast ultrasound examination including all 4 quadrants and subar eolar areas was performed. COMPARISON: 03/17/2022 diagnostic left mammogram and limited left breast ultrasound 02/11/2022 bilateral screening mammogram BREAST PARENCHYMAL COMPOSITION: The breasts are heterogeneously dense, which may obscure small masses . FINDINGS: MAMMOGRAPHIC FINDINGS: No suspicious mass or architectural distortion, malignant calcification, skin thickening or retractio n or significant new or developing density is detected. ULTRASOUND: Right breast: 2:00 near nipple: Superficial 2.5 x 4.8 mm simple cyst 7:00 near nipple: 2.9 x 3.4 mm simple cyst 10:00 5 cm from nipple: 4.7 x 6.1 x 6.6 mm sonolucency with through transmission and posterior enhanc ement, consistent with simple cyst 10:00 4 cm from nipple: Parallel circumscribed sonolucency measuring 6.5 x 2.9 x 5.9 m, consistent wi th simple cyst Left breast: 12:00 9 cm from nipple: Parallel circumscribed heterogeneous hypoechoic/hyperechoic solid lesion suleman uring 6.8 x 4 x 7.7 mm, with through transmission and no posterior enhancement, no internal vasculari ty, benign in appearance IMPRESSION: 1. Benign findings 2. Routine mammographic screening is recommended BI-RADS Category 2: Benign finding(s). Reviewed, dictated and finalized at location A. IMPRESSION: 1. Benign findings 2. Routine mammographic screening is recommended BI-RADS Category 2: Benign finding(s).
== END 2023-01-16 11:40 | disposition home or self-care (01) ==
PROVIDERS: PCP Family Medicine; Visit Provider Nurse Practitioner Obstetrics & Gynecology
DX: R92.8 Other abnormal and inconclusive findings on diagnostic imaging of breast (principal)
CPT/HCPCS: 76641; 77062; 77066; G0279

== ENCOUNTER 2023-01-19 10:18 | Outpatient (CLI) | payer BC, SELFPAY | END 2023-01-19 10:19 | disposition home or self-care (01) | LOC: ANHSURGERY 10:22 | PROVIDERS: PCP Family Medicine; Visit Provider Obstetrics & Gynecology | DX: Z01.812 Encounter for preprocedural laboratory examination (principal); N92.0 Excessive and frequent menstruation with regular cycle | CPT/HCPCS: 36415; 86850; 86900; 86901 ==

== ENCOUNTER 2023-01-25 00:39 | Day surgery (SDC) | payer BC, SELFPAY ==
[2023-01-17 15:40] VITALS: BMI 37.3
--- NOTE | 2023-01-17 15:47 | PC.NURSE ---
Report to the Outpatient Waiting Room, entrance under the green pavilion located off [facility], at time 6:00 on date 01/25/23. Planned Procedure Time: 7:30. Time changes happen often and if your time is changed the preop area will call you the afternoon before. - You and your visitor will be asked to self-screen and do not enter if you have any COVID symptoms. - A mask is optional within the hospital at this time. Patients may have clear liquids (water, carbonated beverages, clear teas, apple juice) until 3 hours prior to surgery with a maximum of 20 ounces. - No food from midnight until time of surgery Take the following medications with a SIP of water the morning of surgery: NONE DO NOT STOP ANY OF YOUR OTHER PRESCRIPTION MEDICATIONS PRIOR TO SURGERY ?EXCEPT THE FOLLOWING Medications to discontinue per physician: VITAMINS/SUPPLEMENTS Date to take last dose: 01/21/23 Please no make-up, nail trinidadian, hairspray, perfume, deodorant, or body powder the day of surgery. No jewelry (including any body piercings) or valuables the day of surgery, leave them at home. Please take a shower or bath the night before, or the morning of, surgery with an antibacterial soap. Wear comfortable, loose fitting clothing. - Jewelry must be removed prior to entering the operating room. Rings and piercings that are not removed may be cut off. - The hospital will not accept responsibility for valuables. - Please leave all valuables, including medications, at home the day of surgery. If you are going home after surgery, a licensed party bus driver must drive you home. - NO public transportation without another adult if you receive anesthesia. - We recommend that an adult stay with you for 24 hours following discharge. - We also recommend that you do not drive, make important decision, drink alcoholic beverages, or take any drugs that were not prescribed by your health care provider for at least 24 hours after your discharge time. Follow any additional instructions given to you from your surgeon. If you or anyone in your household have experienced Covid symptoms in the past week, please notify your surgeon or the nurse liaison at the phone number below for possible testing. Telephone instructions given to PT - BALTAZAR SHELBY and asked if any additional questions and then verbalized understanding. Patient advised to call surgeon office or pre surgery nurse liaison [phone] if any additional questions.
[2023-01-25] VITALS (10 sets, daily range): BP systolic 113–141; BP diastolic 53–79; PULSE 61–94; RESP 12–18; TEMP 36.2–37.1; O2SAT 96–100; BMI 36.8
[2023-01-25] MEDS: LACTATED RINGERS 1,000 ML 30 ML IV CONT ×2 (06:35→09:33)
[2023-01-25] MEDS: ACETAMINOPHEN 500 MG TABLET 1000 MG PO (06:46)
[2023-01-25] MEDS: KETOROLAC 15 MG/ML VIAL (*BKC) IV PUSH (06:46)
--- NOTE | 2023-01-25 06:53 | WPDANESEPPF ---
Anes - Initial Pre Proc Eval Procedure: Operation Date: 01/25/23 07:30 Proposed Procedures p Total Laparoscopic Hysterectomy with Bilateral Salpingectomy - Wesley Mendoza MD Date/Time: 01/25/23 06:53 Surgeon: Wesley Mendoza MD Pre Op Diagnosis: menorrhagia Patient Data Age: 47 Gender: F Height: 1.7 m Weight: 108 kg Allergies Allergy/AdvReac Type Severity Reaction Status Date / Time No Known Allergies Allergy Verified 01/25/23 06:24 Home Medications Medication Instructions Recorded Confirmed Type tramadol 50 mg tablet 50 mg PO Q8H PRN pain #60 tabs 07/13/22 01/17/23 Rx tizanidine 4 mg tablet 4 mg PO QHS PRN muscle spasticity 12/19/22 01/17/23 Rx #30 tabs calcium carbonate 600 mg-vitamin 1 tablet PO DAILY 01/17/23 01/25/23 History D3 5 mcg (200 unit) tablet multivitamin 1 tablet PO DAILY 01/17/23 01/25/23 History Patient hx anesthesia problems: none Family hx anesthesia problems: none Results Review: All pre-operative results and documents have been reviewed as part of the pre-operative evaluation. [facility] Past Medical History Medical History Benign positional vertigo BMI 34.0-34.9,adult BMI 36.0-36.9,adult BMI 37.0-37.9, adult BMI 38.0-38.9,adult COVID-19 Leg edema Surgical History Surgical History H/O knee surgery Family History Family History Father Family history of malignant neoplasm of urinary bladder COVID-19 Mother COPD (chronic obstructive pulmonary disease) Diabetes mellitus Sibling Diabetes mellitus Social History Social History Smoking status: Never smoker Second hand tobacco smoke exposure: Yes Alcohol intake: current Alcohol use details: 1/MONTH Substance use: never Substance use type: does not use Lack of Transportation: No Lack of Food: Never True Current Housing: I Have Housing Concerned About Future Housing: No Difficulty Paying Gas/Electric Bills: No Difficulty Paying for Meds: No Currently Unemployed: No Education: Associate Degree Difficulty w/ Childcare or Family Care: No Living arrangements: with family Occupation/Education: occupation 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 Gender identity (if verbalized by the patient): Female Spiritual care concerns: No Anes - Eval Final PreProcedure Day of Procedure 01/25/23 06:53 Patient weight: obese Heart: regular rate and rhythm Lungs: clear to auscultation Airway: Mallampati scale class II Neurological: alert and oriented Last oral intake: >/= 8 hours ASA classification: III Emergent: no Anesthetic plan: proceed Anesthesia type and monitoring: general ETT and standard monitoring Results Review: All pre-operative results and documents have been reviewed as part of the pre-operative evaluation. Informed Consent: The patient's anesthetic plan and its attendant risks and benefits were discussed with the patient/family/POA. Questions were solicited and answers provided to the satisfaction of the patient/family/POA.
--- NOTE | 2023-01-25 07:34 | WPDHPUPDATE1 ---
History and Physical Update Update Date/Time: 01/25/23 07:34 History and Physical has been reviewed, including an updated exam of the patient. There are NO changes in the patient's condition. Risks, benefits, and alternatives have been discussed and questions answered. Patient agrees to proceed with procedure.
[2023-01-25] MEDS: ceFAZolin 2 GM/D5W 50 ML 2 GM/50 ML BAG IVPB (07:38)
[2023-01-25] MEDS: ceFAZolin SODIUM 1 GM VIAL (08:17)
--- NOTE | 2023-01-25 09:33 | P.OP_ITS ---
Procedure Note - Detailed Date of Procedure 01/25/23 Pre-op Diagnosis menorrhagia Post-op Diagnosis Same Procedure Performed Total laparoscopic hysterectomy. Bilateral salpingectomy Surgeon Wesley Mendoza MD Anesthesia General Findings Enlarged fibroid uterus, normal-appearing tubes and ovaries, normal vulva, va dee dee, cervix. Description of Procedure This patient was taken to the operating room. She was prepped and draped in the dorsal lithotomy position after induction of general anesthesia. The uterine manipulator and Alexandria cup were placed. This was done with a speculum and tenaculum. The speculum was placed. The cervix was grasped with a tenaculum. The stay sutures were placed at 3 and 9:00 a.m.. The stay sutures of 0 Vicryl were brought through the appropriately sized Alexandria cup. The tip of the MAX manipulator was placed in the intrauterine cavity. The cup was slid into place around the cervix and into the fornices. It was locked into place. The sutures were then wrapped around the handle and tied under tension. A 5 mm skin incision was made in the left upper quadrant the abdomen. A 5 mm trocar was inserted into the intrauterine cavity under direct visualization of the scope. Pneumoperitoneum was achieved. A left lower quadrant 11 mm incision was made with scalpel. An 11 mm trocar was inserted into the anterior abdominal cavity under direct visualization the scope. A 5 mm infraumbilical incision was made with a scalpel and a 5 mm trocar was inserted the intra-abdominal cavity under direct visualization of the scope. Bilateral ureteral lysis was performed. This was done from the pelvic brim down to the uterine artery. This was done with careful dissection using sharp and blunt dissection. The fallopian tubes were removed bilaterally. The mesosalpinx around the fallopian tubes were cauterized transected with LigaSure cautery. This was done in a bilateral fashion from the ovary to the uterine cornua. The fallopian tube was transected at the uterine cornu and amputated. The tube was taken out the left lower quadrant trocar site. In a stepwise fashion along the lateral aspects of the uterus the round ligament and broad ligaments were cauterized transected down to the level of the uterine arteries. A bladder flap was created in the bladder was moved distally to the end of the cervix and over the Alexandria cup. The bilateral uterine arteries were cauterized and transected. Colpotomy was then performed. In a circumferential fashion the vagina was transected using unipolar cautery. The incision was made down on the Alexandria cup. The uterus and cervix were taken out through the vagina. A pneumo occluder was placed in the vagina. The vaginal cuff was closed with a 0 V lock suture in a running fashion. The pelvis was irrigated with copious amounts antibiotic irrigation. The ureters were again examined and found to be intact and flowing freely under the uterine arteries into the bladder. The bladder was intact. It was examined directly. The vagina was irrigated with Betadine solution after removal of the Pneumo occluder. The patient was taken to recovery room. She was stable condition. Sponge lap and needle counts were correct x2. Estimated Blood Loss 75 Drains Yes Packing No Pathology Yes Complications No immediate complications Condition Stable Disposition Floor
[2023-01-25] MEDS: fentaNYL CITRATE INJ (*CRX) 100 MCG/2 ML VIAL 25 MCG IV PUSH ×8 (09:54→10:29)
[2023-01-25] MEDS: ONDANSETRON INJ 4 MG/2 ML VIAL IV PUSH ×2 (09:57→18:19)
[2023-01-25] MEDS: HYDROmorphone HCL INJ (*CRX) 1 MG/ML SYR 0.5 MG IV PUSH ×4 (10:15→10:33)
--- NOTE | 2023-01-25 10:50 | ADMGEN ---
This patient, Sheri Jameson, was admitted to OB 2nd Floor Room 276-00. Patient/family oriented to hospital policies and general routines including ID bracelet, bed and alarms, visiting hours, pain management, procedures, bathroom and other care routines, personal items, smoking policy, room service/diet, and visiting hours. Information on how to activate the Rapid Response Team has been discussed. Patient/Family are encouraged to report perceived risks to care and to ask questions if they do not understand what they are told or what they should do.
[2023-01-25] MEDS: KETOROLAC 30 MG/ML VIAL (*BKC) IV PUSH ×2 (11:02→17:09)
[2023-01-25] MEDS: DEXTROSE 5%/0.45% SOD CHL 1,000 ML 125 ML IV CONT ×2 (11:05→19:49)
[2023-01-25] MEDS: HYDROcodone/acetaminophen (*CRX) 10-325 MG TABLET 1 TAB PO ×2 (11:59→15:15)
--- NOTE | 2023-01-25 22:28 | PC.NURSE ---
pt reports nausea, carmelita when ambulating to the bathroom. Pt reports pain 10/10 when ambulating. RN offered Patient hydrocodone but pt refused bc she reported that she thinks that is what is making her nauseous.
[2023-01-26] MEDS: traMADol HCL (*CRX) 50 MG TABLET PO ×2 (00:28→10:31)
[2023-01-26] MEDS: TIZANIDINE HCL 4 MG TABLET PO (00:29)
[2023-01-26 05:09] VITALS: BP 107/48; PULSE 78; RESP 18; TEMP 36.7; O2SAT 98
[2023-01-26] MEDS: KETOROLAC 30 MG/ML VIAL (*BKC) IV PUSH (05:54)
[2023-01-26 07:00] VITALS: BP 105/65; PULSE 59; RESP 18; TEMP 36.3; O2SAT 98
[2023-01-26 07:39] VITALS: PULSE 59; RESP 18; O2SAT 98
--- NOTE | 2023-01-26 08:26 | PM.GYNPNOP ---
TOMOGRAPHY TECHNOLOGIST - A/P Postoperative Procedures: Procedures Operation Date: 01/25/23 07:30 Actual Procedure Side Surgeon p Total Laparoscopic Hysterectomy with Bilateral Salpingectomy Wesley Mendoza MD Postoperative day: 1 Postoperative status: doing well Postoperative plan: see orders Time Spent With Patient Time: Total time spent is greater than 50% in coordination of care (as documented) at patient's floor/unit and/or counseling patient: Time with patient: 15 - 25 minutes TOMOGRAPHY TECHNOLOGIST- PN:Subj Post-Op Subjective Date/time seen: 01/26/23 08:26 Subjective: patient reports feeling better, patient has no complaints and pain is well controlled Exam Const: General: healthy appearing, comfortable and no acute distress Resp: Auscultation: clear to auscultation bilaterally, no rales, no rhonchi and no wheezes Cardio: Rate: regular rate Heart sounds: no click, no murmurs and no rubs GI: Inspection: non-distended Auscultation: normal bowel sounds Extrem: General: normal to inspection, no pedal edema and no calf tenderness TOMOGRAPHY TECHNOLOGIST - PN: Obj Data Vital Signs Vital Signs: Vital Signs - 24 hr 01/25/23 09:33 01/25/23 09:45 01/25/23 10:00 Temperature 97.1 F L Pulse Rate 94 79 79 Respiratory Rate 12 12 12 Blood Pressure 113/53 L 119/55 L 132/57 L Pulse Oximetry 99 100 97 Oxygen Delivery Simple Face Mask Simple Face Mask Room Air Oxygen Flow Rate 8 8 01/25/23 10:15 01/25/23 10:30 01/25/23 11:00 Temperature Pulse Rate 88 65 Respiratory Rate 16 12 Blood Pressure 133/70 115/64 Pulse Oximetry 97 97 Oxygen Delivery Room Air Room Air Room Air Oxygen Flow Rate 01/25/23 11:15 01/25/23 15:15 01/25/23 15:15 Temperature 97.8 F 98.1 F Pulse Rate 71 83 Respiratory Rate 16 16 Blood Pressure 126/62 132/70 Pulse Oximetry 97 96 Oxygen Delivery Room Air Oxygen Flow Rate 01/25/23 19:58 01/25/23 19:58 01/25/23 20:23 Temperature 97.9 F Pulse Rate 63 Respiratory Rate 12 Blood Pressure 114/53 L Pulse Oximetry 97 Oxygen Delivery Room Air Room Air Oxygen Flow Rate 01/25/23 23:30 01/25/23 23:30 01/26/23 05:09 Temperature 97.7 F 98.0 F Pulse Rate 61 78 Respiratory Rate 18 18 Blood Pressure 115/53 L 107/48 L Pulse Oximetry 98 98 Oxygen Delivery Room Air Oxygen Flow Rate 01/26/23 07:00 01/26/23 07:39 Temperature 97.4 F L Pulse Rate 59 L 59 L Respiratory Rate 18 18 Blood Pressure 105/65 Pulse Oximetry 98 98 Oxygen Delivery Room Air Oxygen Flow Rate Intake/Output Intake/Output: Intake & Output 01/23/23 01/24/23 01/25/23 01/26/23 23:59 23:59 23:59 23:59 Intake Total 1650 Output Total 1580 Balance 70 Meds/Results Medications: Active Medications Generic Name Dose Route Start Last Admin Trade Name Freq PRN Reason Stop Dose Admin Hydrocodone Bitart/Acetaminophen 1 tab 01/25/23 10:38 Hydrocodone/Acetaminophen (*Crx) 5-325 Mg Tablet PO Q3H PRN Pain Rated 5 or Less Hydrocodone Bitart/Acetaminophen 1 tab 01/25/23 10:38 01/25/23 15:15 Hydrocodone/Acetaminophen (*Crx) 10-325 Mg Tablet PO 1 tab Q3H PRN Administration Pain Rated 6 or Greater Dextrose/Sodium Chloride 1,000 mls @ 125 mls/hr 01/25/23 10:38 01/25/23 19:49 Dextrose 5% Sodium Chloride 0.45% IV CONT 125 mls/hr .Q8H AFSHAN Administration Ibuprofen 600 mg 01/25/23 10:38 Ibuprofen 600 Mg Tablet PO Q6H PRN Cramping Ketorolac Tromethamine 30 mg 01/25/23 10:38 01/26/23 05:54 Ketorolac 30 Mg/Ml Vial (*Bkc) IV PUSH 01/30/23 10:37 30 mg Q6H PRN Administration Pain Rated 4-6 Naloxone HCl 0.1 mg 01/25/23 10:38 Naloxone Hcl 0.4 Mg/Ml Vial IV PUSH Q2M PRN Respiratory rate less than 10 Ondansetron HCl 4 mg 01/25/23 10:38 01/25/23 18:19 Ondansetron Inj 4 Mg/2 Ml Vial IV PUSH 4 mg Q6H PRN Administration Nausea And Vomiting Tizanidine HCl 4 mg 01/25/23 10:38 01/26/23 00:29 Tizanidine Hcl 4 Mg T
[2023-01-26] MEDS: ONDANSETRON INJ 4 MG/2 ML VIAL IV PUSH (10:31)
--- NOTE | 2023-01-26 14:10 | WPDANESPN ---
Anes - Prog Note Post-Op Date/Time: 01/26/23 14:10 Vital Signs: Last Vital Signs Temp 36.3 C L 01/26/23 07:00 Pulse 59 L 01/26/23 07:39 Resp 18 01/26/23 07:39 BP 105/65 01/26/23 07:00 Pulse Ox 98 01/26/23 07:39 O2 Del Method Room Air 01/26/23 07:39 O2 Flow Rate 8 01/25/23 09:45 Pain Score (VAS): 0 I/O: Intake & Output 01/25/23 01/26/23 01/26/23 23:59 07:59 15:59 Intake Total 1000 240 Output Total 1150 Balance -150 240 Post-procedural complaints: nausea Patient Feedback: Patient satisfied with anesthetic care.
== END 2023-01-26 11:52 | disposition home or self-care (01) ==
LOC: ANHSURGERY 05:52 → ANHOB2 10:40
PROVIDERS: PCP Family Medicine; Visit Provider Obstetrics & Gynecology
PROC: 0UT9FZZ Resection of Uterus, Via Natural or Artificial Opening With Percutaneous Endoscopic Assistance (ICD-10-PCS; CPT 58571; principal; 2023-01-25 07:30)
DX: N92.0 Excessive and frequent menstruation with regular cycle (principal); N72 Inflammatory disease of cervix uteri; N88.8 Other specified noninflammatory disorders of cervix uteri; E66.9 Obesity, unspecified; Z68.36 Body mass index [BMI] 36.0-36.9, adult; Z80.52 Family history of malignant neoplasm of bladder; Z79.891 Long term (current) use of opiate analgesic
CPT/HCPCS: 58571; 36415; 86850; 86900; 86901; 88307; 99199; A9270; J0690; J1100; J1170; J1885; J2250; J2405; J2704; J2765; J3010; J7030; J7120

== ENCOUNTER 2023-03-28 09:15 | Outpatient (CLI) | payer BC, SELFPAY ==
[2023-03-28 09:39] LABS: Hematocrit 42.4 % (37.0-47.0); Hemoglobin 13.9 g/dL (12.0-15.0); Mean Corpuscular HGB Conc 32.8 g/dl (32-36); Mean Corpuscular Hemoglobin 28.5 pg (26-34); Mean Corpuscular Volume 86.9 fl (80-100); Mean Platelet Volume 8.9 fl (7.4-10.4); Platelet Count Result 346 k/mm3 (150-375); Red Blood Count 4.88 M/mm3 (4.2-5.4); Red Cell Distribution Width 13.8 % (11.5-14.5); White Blood Count 9.2 K/mm3 (4.5-10.0)
[2023-03-28 13:40] LABS: Iron 105 ug/dL (37-170)
[2023-03-28 13:51] LABS: Percent Iron Saturation 29 % (20-50)
== END 2023-03-28 09:16 | disposition home or self-care (01) ==
LOC: ANHLAB 09:26
PROVIDERS: PCP Family Medicine; Visit Provider Internal Medicine Hematology & Oncology
DX: D50.9 Iron deficiency anemia, unspecified (principal)
CPT/HCPCS: 36415; 82728; 83540; 83550; 85027

== ENCOUNTER 2023-07-11 16:07 | Emergency (ER) | payer BC, SELFPAY ==
[2023-07-11 16:16] VITALS: BP 117/65; PULSE 63; RESP 16; TEMP 36.2; O2SAT 99
--- NOTE | 2023-07-11 16:16 | ED.FEMALEGU ---
HPI - Female Genitourinary General Chief complaint: Urogenital-Female Stated complaint: Uti Symptoms Time Seen by Provider: 07/11/23 16:16 Source: patient Mode of arrival: ambulatory Limitations: no limitations History of Present Illness HPI Narrative: Sehri is a 48-year-old female patient presenting to the clinic today with complaints of possible urinary tract infection. She reports she is having burning, frequency, and urgency for the past week. Also reports malodorous urine. Has been taking [id number] azo for her symptoms. Last dose was yesterday. No fever, chills, or back pain but does report suprapubic pain Related Data Home Medications Medication Instructions Recorded Confirmed calcium carbonate 600 mg-vitamin 1 tablet PO DAILY 01/17/23 07/11/23 D3 5 mcg (200 unit) tablet multivitamin 1 tablet PO DAILY 01/17/23 07/11/23 Allergies Allergy/AdvReac Type Severity Reaction Status Date / Time No Known Allergies Allergy Verified 07/11/23 16:21 Review of Systems Review of Systems: Pertinent positives per HPI. Patient denies any fever, chills, rash, headache, visual changes, dizziness, cough, runny nose, sore throat, shortness of breath, chest pain, palpitations, nausea, vomiting, diarrhea, constipation, abdominal pain. [facility] Past Medical History Medical History Benign positional vertigo BMI 34.0-34.9,adult BMI 36.0-36.9,adult BMI 37.0-37.9, adult BMI 38.0-38.9,adult Bulging lumbar disc COVID-19 Leg edema Lumbar spondylosis Radiculopathy Surgical History Surgical History H/O hysterectomy with oophorectomy 01/25/23 H/O knee surgery Family History Family History Father Family history of malignant neoplasm of urinary bladder COVID-19 Mother COPD (chronic obstructive pulmonary disease) Diabetes mellitus Sibling Diabetes mellitus Social History Social History Smoking status: Never smoker Second hand tobacco smoke exposure: Yes Alcohol intake: current Alcohol use details: 1/MONTH Substance use: never Substance use type: does not use Lack of Transportation: No Lack of Food: Never True Current Housing: I Have Housing Concerned About Future Housing: No Difficulty Paying Gas/Electric Bills: No Difficulty Paying for Meds: No Currently Unemployed: No Education: Associate Degree Difficulty w/ Childcare or Family Care: No Living arrangements: with family Occupation/Education: occupation 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 There is no relevant family history pertinent to the patient complaint. Exam Narrative: General: Well-developed, obese, in no apparent distress. Head: Normocephalic, atraumatic. Cardio: Regular rate and rhythm, s1 and s2 normal, no murmur appreciated. Resp: Clear to auscultation bilaterally, no rhonchi, rales, wheezing or rubs. Abdomen: Soft, pliable, bowel sounds present in all quadrants, mild tender to palpation over the suprapubic bladder, no organomegly, no CVAT tenderness. Course Course Emergency Course: Portions of this record may have been created with voice recognition software. Level of Care: Express Care Visit Vital Signs Vital signs: Vital signs reviewed MDM - Female Genitourinary MDM Narrative Medical decision making narrative: At the time of visit patient is resting comfortably on the exam table. Patient appears to be nontoxic. Labs: UA dip was performed and
== END 2023-07-11 16:26 | disposition home or self-care (01) ==
PROVIDERS: Emergency Provider Nurse Practitioner Family
DX: N30.00 Acute cystitis without hematuria (principal); B96.20 Unspecified Escherichia coli [E. coli] as the cause of diseases classified elsewhere; M47.816 Spondylosis without myelopathy or radiculopathy, lumbar region; Z86.16 Personal history of COVID-19
CPT/HCPCS: 81003; 87077; 87086; 87088; 87186; 99213; G0463

== ENCOUNTER 2023-09-29 09:09 | Outpatient (CLI) | payer BC, SELFPAY ==
[2023-09-29 09:35] LABS: Basophils Absolute Auto 0.1 K/mm3 (0.0-0.1); Basophils Percent Auto 0.4 % (0.2-1.2); Eosinophils Absolute Auto 0.2 K/mm3 (0-0.3); Eosinophils Percent Auto 1.3 % (0-4.4); Hematocrit 42.6 % (37.0-47.0); Hemoglobin 14.4 g/dL (12.0-15.0); Immature Granulocyte Absolute 0.06 K/mm3 (0.00-0.031); Immature Granulocyte Percent A 0.5 % (0-0.5); Lymphocytes Absolute Auto 2.12 K/mm3 (0.9-3.2); Lymphocytes Percent Auto 16.6 % (18.3-44.2); Mean Corpuscular HGB Conc 33.8 g/dl (32-36); Mean Corpuscular Hemoglobin 29.1 pg (26-34); Mean Corpuscular Volume 86.2 fl (80-100); Mean Platelet Volume 9.3 fl (7.4-10.4); Monocytes Absolute Auto 0.7 K/mm3 (0.1-0.6); Monocytes Percent Auto 5.6 % (2.6-8.5); Neutrophils Absolute Auto 9.7 K/mm3 (1.3-6.7); Neutrophils Percent Auto 75.6 % (45.5-73.1); Platelet Count Result 360 k/mm3 (150-375); Red Blood Count 4.94 M/mm3 (4.2-5.4); Red Cell Distribution Width 13.6 % (11.5-14.5); White Blood Count 12.8 K/mm3 (4.5-10.0)
[2023-09-29 09:48] LABS: Anion Gap 8 mmol/L (4-12); Blood Urea Nitrogen 20 mg/dL (7-17); Calcium 9.3 mg/dL (8.4-10.2); Carbon Dioxide 25 mmol/L (22-30); Chloride 105 mmol/L (98-107); Estimated Glomerular Filt Rate > 60; Glucose 109 mg/dL (65-110); Potassium 4.1 mmol/L (3.4-5.0); Sodium 138 mmol/L (137-145)
[2023-09-29 09:54] LABS: NT Pro B Type Natriuretic Pept < 20 pg/mL (19.9-100)
== END 2023-09-29 09:10 | disposition home or self-care (01) ==
LOC: ANHLAB 09:10
PROVIDERS: PCP Family Medicine; Visit Provider Physician Assistant Medical
DX: R60.0 Localized edema (principal); I10 Essential (primary) hypertension
CPT/HCPCS: 36415; 80048; 83880; 84443; 85025

== ENCOUNTER 2024-02-07 08:55 | Outpatient (CLI) | payer BC, SELFPAY ==
--- NOTE | ~2024-02-07 | MM_ITS ---
EXAMINATION: MM screening [facility] BI w danial HISTORY: Screening mammogram TECHNIQUE: Craniocaudal and mediolateral oblique 3-D tomosynthesis images were obtained and synthetic 2-D images were generated. CAD analysis was submitted and interpreted. COMPARISON: 01/16/2023, 02/11/2022, 08/20/2021, 12/18/2020 BREAST PARENCHYMAL COMPOSITION:Not Dense. There are scattered areas of fibroglandular density. FINDINGS: No suspicious mass, calcification, or architectural distortion are identified in either kranthi ast to suggest malignancy. There has been no suspicious interval change. IMPRESSION: No mammographic evidence of malignancy. Recommend routine screening mammography in one year. BI-RADS Category 1: Negative Reviewed, dictated and finalized at location . 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
== END 2024-02-07 08:56 | disposition home or self-care (01) ==
LOC: ANHIMG 08:57
PROVIDERS: PCP Family Medicine; Visit Provider Advanced Practice Midwife
DX: Z12.31 Encounter for screening mammogram for malignant neoplasm of breast (principal)
CPT/HCPCS: 77063; 77067

== ENCOUNTER 2024-08-23 13:00 | Outpatient (CLI) | payer BC, SELFPAY ==
--- OUTSIDE RECORDS SUMMARY | 2024-08-23 13:05 | XMS_ITS | Data Portability ---
Author Organization 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 Plan of Treatment Reminders Order Date Submit Date Provider Last Modified By Organization Details Last Modified Time Details Appointments None recorded. Lab urinalysis , dipstick 2023 024 [email or web address] [place], [place] [id number] Josette Mcgee, [address], [place], [address], 4 14:24:40 [facility]inalysis , dipstick 2023 [email or web address], [address], [place], [address], 4 17:51:29 urinalysis , dipstick [email or web address] [place], [place] [id number] [address] Mcgee [address], [place], [address], 3 11:30:37 Referral None recorded. Procedures None recorded. Surgeries None recorded. Imaging None recorded. Medication Orders Cipro 500 mg tablet 2023 024 [id number], [address] [place], [place], [id number], 4 14:24:51 Cipro 500 mg tablet 2022 023 [email or web address] [facility] #[id number], [address] [place] [address], [place], [id number], 11:41:35 Patient TargetsNo targets recorded. Patient InstructionsNo instructions recorded. Reason for Referral None Reported. Results Created Date Observation Date Name Description Value Unit Range Abnormal Flag Note LastModifiedBy Organization Detail LastModifiedTime 02/10/2002/09/2023 CULTU RE: URINE result report SEE RESULT S BELOW Test: Cultu re: Urine Speci men Sourc e: Urine Voide d Speci men Type: Urine Speci men Date: 02/09 1:31 PM Resul t Date: 02/11 5:56 AM Resul t Statu s: Final resul t Abnor mal: No Resul ting Lab: [facility] [address] [facility] [address] Tel: CULTU RE ----- ----- ----- --- No growt h in 1 day (dete ction level of 10,00 0 colon ies / ml.) Not Available [facility] (Lab) [address] [facility], [place], [address], 02/11/2023 07:01:13 02/10/20 23 02/09/2023 urina lysis , dipst ick Leukocytes +2 Not Available [facility] [address], [place], [address], 02/09/2023 11:29:33 02/10/20 23 02/09/2023 urina lysis , dipst ick Nitrite Negati ve Not Available [facility] [address], [place], [address], 02/09/2023 11:29:33 02/10/20 23 02/09/2023 urina lysis , dipst ick Protein Trace Not Available [facility] [address], [place], [address], 02/09/2023 11:29:33 02/10/20 23 02/09/2023 urina lysis , dipst ick pH 5 Not Available [facility] [address], [place], [address], 02/09/2023 11:29:33 02/10/20 23 02/09/2023 urina lysis , dipst ick Blood +++ Not Available [facility] [address], [place], [address], 02/09/2023 11:29:33 02/10/20 23 02/09/2023 urina lysis , dipst ick Specific [place] 1.025 Not Available [facility] [address], [place], [address], 02/09/2023 11:29:33 11/20/19 24 11/20/2023 CULTU RE: URINE result report SEE RESULT S BELOW abnormal Test: Cultu re: Urine Speci men Sourc e: Urine Voide d Speci men Type: Urine Speci men Date: 2023 1719 Resul t Date: 2023 1047 Resul t Statu s: Final resul t Abnor mal: Yes Oscar luz Lab: [facility] [address] [facility] [address] Tel: CULTU RE ----- ----- ----- --- >100, 000 CFU/m l Esche naman a coli (Abno rmal) SUSCE PTIBI LITY ----- ----- ----- --- Esche naman a coli METHO D GEO ----- ----- ----- ----- ----- ---- ----- ----- ----- ----- ----- AMPIC ILLIN <=8 ug/mL Susce ptibl e AMPIC ILLIN /SULB ACTAM <=4 ug/mL Susce ptibl e AZTRE ONAM <=4 ug/mL Susce ptibl e CEFAZ EUGENE <=2 ug/mL Susce ptibl e CEFEP [place] <=2 ug/mL Susce ptibl e CEFTA ZIDIM E <=1 ug/mL Susce ptibl e CEFTR IAXON E <=1 ug/mL Susce ptibl e CIPRO FLOXA LAST <=0.2 5 ug/mL Susce ptibl e GENTA MICIN <=2 ug/mL Susce ptibl e LEVOF LOXAC IN <=0.5 ug/mL Susce ptibl e MEROP ENEM <=1 ug/mL Susce ptibl e NITRO FURAN TOIN <=32 ug/mL Susce ptibl e PIPER ACILL IN/TA ZOBAC GUZMAN <=8 ug/mL Susce ptibl e TOBRA MYCIN <=2 ug/mL Susce ptibl e TRIME THOPR IM/PERRY LFAME THOXA ZOLE <=0.5 ug/mL Susce ptibl e Not Available [facility] (Lab) [address] [facility], [place], [address], 11/23/2023 11:51:02 12/11/1912/11/2023 CULTU RE: URINE result report SEE RESULT S BELOW Test: Cultu re: Urine Speci men Sourc e: Urine - Clean Catch Speci men Type: Urine Speci men Date: 2023 1501 Resul t Date: 2023 0348 Resul t Statu s: Final resul t Abnor mal: No Resul ting Lab: [facility] [address] [facility] [address] Tel: CULTU RE ----- ----- ----- --- No growt h in 1 day (dete ction level of 10,00 0 colon ies / ml.) Not Available [facility] (Lab) [address] [place], [address], 12/13/2023 04:52:12 12/11/1912/11/2023 urina lysis , dipst ick Leukocytes Trace Not Available [facility] vandana [address], [place], [address], 12/11/2023 14:23:30 12/11/19 24 12/11/2023 urina lysis , dipst ick Nitrite Neg Not Available [facility] [address], [place], [address], 12/11/2023 14:23:30 12/11/19 24 12/11/2023 urina lysis , dipst ick Urobilinogen Neg Not Available [facility] phillip [address], [place], [address], 12/11/2023 14:23:30 12/11/19 24 12/11/2023 urina lysis , dipst ick Protein Trace Not Available [facility] [address], [place], [address], 12/11/2023 14:23:30 12/11/19 24 12/11/2023 urina lysis , dipst ick pH 6 Not Available [facility] [address], [place], [address], 12/11/2023 14:23:30 12/11/19 24 12/11/2023 urina lysis , dipst ick Blood trace Not Available [facility] [address], [place], [address], 12/11/2023 14:23:30 12/11/19 24 12/11/2023 urina lysis , dipst ick Specific [place] 1.010 Not Available [facility] [address], [place], [address], 12/11/2023 14:23:30 12/11/19 24 12/11/2023 urina lysis , dipst ick Ketone Neg Not Available [facility] [address], [place], [address], 12/11/2023 14:23:30 12/11/19 24 12/11/2023 urina lysis , dipst ick Bilirubin Neg Not Available [facility] [address], [place], [address], 12/11/2023 14:23:30 12/11/19 24 12/11/2023 urina lysis , dipst ick Glucose Neg Not Available [facility] [address], [place], [address], 12/11/2023 14:23:30 12/11/19 24 12/11/2023 urina lysis , dipst ick Appearance Clear Not Available [facility] [address], [place], [address], 12/11/2023 14:23:30 12/11/19 24 12/11/2023 urina lysis , dipst ick Color Yellow Not Available [facility] [address], [place], [address], 12/11/2023 14:23:30 Result Notes None recorded. Problems Name Problem SNOMED Code Status Onset Date Resolution Date Notes Provider Name and Address Organization Details Recorded Time Removal of intraute rine device Completed 201701/15/2021 REMOVAL OF IUD;Stuart rded Elsewher e: No Locat ion: [facility] S ource: EHR Ict Customer Support Officer genia: N Practi ce ID: 0001 Tom lable Time: 02:00:00 PM [facility] 12:15:55 Counseli ng Completed 201201/15/2021 Other specifie d counseli ng;Recor ded Elsewher e: No Locat ion: [facility] S ource: EHR Ict Customer Support Officer genia: Y Practi ce ID: 0001 Tom lable Time: 02:30:00 PM [facility] 12:15:47 Finding of fertilit y Completed 201701/15/2021 Female infertil ity, unspecif ied;Stuart rded Elsewher e: No Locat ion: [facility] S ource: EHR Ict Customer Support Officer genia: N Practi ce ID: 0001 Tom lable Time: 10:30:00 AM [facility] hare, [facility] 12:15:[address] Concept Completed 201701/15/2021 Encntr for general adult medical exam w/o abnormal findings ;Recorde d Elsewher e: No Locat ion: [facility] S ource: EHR Ict Customer Support Officer genia: N Practi ce ID: 0001 Tom lable Time: 09:45:00 AM Tosin [facility]re, [facility] 12:15:43 Speciali zed medical examinat ion Completed 201201/15/2021 Gynecolo gical Examinat ion;Stuart rded Elsewher e: No Locat ion: [facility] S ource: EHR Ict Customer Support Officer genia: N Practi ce ID: 0001 Tom lable Time: 02:30:00 PM Tosin hare, [facility] 12:15:50 Finding of body mass index [id number] Completed 201501/15/2021 Body mass index (BMI) 40.0-44. 9, adult;Re corded Elsewher e: No Locat ion: [facility] S ource: EHR Ict Customer Support Officer genia: N Practi ce ID: 0001 Tom lable Time: 02:00:00 PM [facility], [facility] 12:15:41 Screenin g for malignan t neoplasm of rectum Completed 201701/15/2021 Encounte r for screenin g for malignan t neoplasm of rectum;R ecorded Elsewher e: No Locat ion: Jayson monroe [facility] S ource: EHR Ict Customer Support Officer genia: N Ivetteti ce ID: 0001 Tom lable Time: 09:45:00 AM [facility] 12:15:39 Pregnanc y test negative [id number] Completed 201601/15/2021 Encounte r for pregnanc y test, result negative ;Recorde d Elsewher e: No Locat ion: Jayson monroe [facility] S ource: [facility] genia: N Ivetteti ce ID: 0001 Tom lable Time: 04:45:00 PM [facility] 12:15:38 Breast lump [id number] Completed 201201/15/2021 Breast Lump Or Mass;Rec orded Elsewher e: No Locat ion: Jayson monroe [facility] S ource: EHR Ict Customer Support Officer genia: N Ivetteti ce ID: 0001 Tom lable Time: 11:00:00 AM [facility] 12:15:59 Bleeding [id number] Completed 201701/15/2021 Abnormal uterine and vaginal bleeding , unspecif ied;Stuart rded Elsewher e: No [facility] S ource: EHR Ict Customer Support Officer genia: N Ivetteti ce ID: 0001 Tom lable Time: 11:00:00 AM [facility] 12:15:32 Pain of breast 61175432 Completed 201201/15/2021 Mastodyn ia;Recor ded Elsewher e: No Locat ion: [facility] S ource: EHR Ict Customer Support Officer genia: N Ivetteti ce ID: 0001 Tom lable Time: 02:30:00 PM [facility] 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 12:15:44 Contrace ptive sheath status [id number] Completed 201601/15/2021 IUD follow up;Recor ded Elsewher e: No Locat ion: [facility] S ource: EHR Ict Customer Support Officer genia: N Practi ce ID: 0001 Tom lable Time: 03:45:00 PM [facility] 12:15:37 Blood leukocyt e number above referenc e range [id number] Completed 201501/15/2021 Elevated white blood cell count, unspecif ied;Stuart rded Elsewher e: No Locat ion: [facility] S ource: EHR Ict Customer Support Officer genia: N Practi ce ID: 0001 Tom lable Time: 11:30:00 AM [facility] 12:15:48 Insertio n of intraute rine contrace ptive device Completed 201601/15/2021 Encounte r for insertio n of intraute rine contrace ptive device;R ecorded Elsewher e: No Locat ion: [facility] S ource: EHR Ict Customer Support Officer genia: N Practi ce ID: 0001 Tom lable Time: 04:45:00 PM [facility] 12:15:53 Screenin g for malignan t neoplasm of cervix Completed 201201/15/2021 Screenin g for malignan t neoplasm s of the cervix;R ecorded Elsewher e: No Locat ion: [facility] S ource: EHR Ict Customer Support Officer genia: N Practi ce ID: 0001 Tom lable Time: 02:30:00 PM [facility] 12:15:29 Finding of menstrua l bleeding Completed 201701/15/2021 Excessiv e and frequent menstrua tion with regular cycle;Re corded Elsewher e: No Locat ion: Juhimarlene fer [facility] S ource: EHR Ict Customer Support Officer genia: N Practi ce ID: 0001 Tom lable Time: 10:30:00 AM [facility] 12:15:31 Urinary tract infectio us disease [id number] Completed 201601/15/2021 Urinary tract infectio n, site not specifie d;Practi ce ID: 0001 [facility] 12:15:57 Body mass index 30+ - obesity 649487342 Completed 201601/15/2021 Body mass index (BMI) 39.0-39. 9, adult;Re corded Elsewher e: No Locat ion: [facility] S ource: EHR Ict Customer Support Officer genia: N Practi ce ID: 0001 Tom lable Time: 01:30:00 PM [facility] 12:15:28 Infectio n screenin g Completed 201601/15/2021 Encounte r for screenin g for oth infec/pa rastc diseases ;Recorde d Elsewher e: No Locat ion: [facility] S ource: EHR Ict Customer Support Officer genia: N Practi ce ID: 0001 Tom lable Time: 01:30:00 PM [facility] 12:15:35 Syphilis test finding [id number] Completed 201601/15/2021 Encntr screen for infectio ns w sexl mode of transmis s;Record ed Elsewher e: No Locat ion: [facility] S ource: EHR Ict Customer Support Officer genia: N Topher ce ID: 0001 Tom thomas Time: 01:30:00 PM [facility] 12:15:46 Problem Notes None recorded. Procedures Surgical History Date Name Laterality Status Provider Name and Address Organization Details Recorded Time 01/26/20 23 ROBOTIC ASSISTED HYSTERECTOMY WITH SALPINGECTOMY (SURG) completed Isabel Adhikari [facility] 04/11/2023 18:06:23 03/29/19 23 Date of Last Pap Smear completed Thao Hairston [facility] 03/29/2022 09:40:28 03/17/20 22 Date of Last Mammogram completed Thao [facility] 03/29/2022 09:06:59 12/19/19 21 completed Tosin Lopez [facility] 01/15/2021 12:17:36 03/27/19 17 laparoscopic sleeve gastrectomy completed [facility] 02/11/2020 15:52:06 03/27/19 17 Appendectomy completed [facility] 02/11/2020 15:52:18 03/27/18 97 Cholecystectomy completed [facility] 02/11/2020 15:51:51 Cholecystectomy completed Devorah Church [facility] 11/07/2022 17:24:32 Imaging Results None recorded. Procedure Notes None recorded. Medical Equipment None Reported. Allergies No known drug allergies Medications Name Sig Start Date Stop Date Status Note LastModified by Organization Details LastModified Time cyclobenz aprine 10 mg tablet TAKE 1 TABLET BY MOUTH THREE TIMES DAILY NEEDED FOR MUSCLE SPASM 11/01 completed Not Available Not Available Not Available Mirena 21 mcg/24 hr (up to 8 years) 52 mg intrauter ine device 06/28 completed Prescrib ed Elsewher e: Yes Loca tion: Jayson monroe [facility] odify By: [email or web address] E ncounter DateTime : 11/10/19 17 04:45:00 PM Not Available Not Available Not Available neomycin- polymyxin -hydrocor t 3.5 mg/mL-10, 000 unit/mL-1 % ear solution 01/15 completed Not Available Not Available Not Available prednison e 10 mg tablet TAKE 3 TABLETS BY MOUTH DAILY FOR 5 DAYS 12/13 completed Not Available Not Available Not Available azithromy last 250 mg tablet TAKE 2 TABLETS BY MOUTH FOR 1 DAY THEN TAKE 1 TABLET BY MOUTH DAILY FOR 4 DAYS active Not Available Not Available No t Available tizanidin e 4 mg tablet TAKE 1 TABLET BY MOUTH EVERY DAY AT BEDTIME NEEDED FOR MUSCLE SPASMS active Not Available Not Available No t Available clomiphen e citrate 50 mg tablet take 1 tablet by oral route every day 01/15 completed Prescrib ed Elsewher e: No [facility] odify By: [email or web address] Encounte r DateTime : 10/20/19 18 11:00:00 AM Not Available Not Available Not Available hydrocodo ne 5 mg-acetam inophen 325 mg tablet TAKE 1 TO 2 TABLETS BY MOUTH EVERY 4 HOURS NEEDED FOR PAIN 01/03 completed Not Available Not Available Not Available sucralfat e 100 mg/mL oral suspensio n active Not Available Not Available Not Available vitamin E 100 unit capsule 10/25 completed Prescrib ed Elsewher e: Yes Loca tion: [facility] odify By: [email or web address] Encounte r DateTime : 06/27/19 14 05:30:00 PM Not Available Not Available Not Available meloxicam 15 mg tablet TAKE 1 TABLET BY MOUTH DAILY 03/15 completed Not Available Not Available Not Available tramadol 50 mg tablet TAKE 1 TABLET BY MOUTH EVERY 6 HOURS NEEDED FOR PAIN active Not Available Not Available No t Available triamcino lone acetonide 0.1 % topical cream APPLY TO AFFECTED AREAS OF ECZEMA TWICE DAILY FOR 2 WEEKS FOR FLARES active Not Available Not Available No t Available amoxicill in 500 mg tablet take 1 tablet by oral route 3 times every day for 10 days 02/09 completed Prescrib ed Elsewher e: No Locat ion: Jayson monroe [facility] M odify By: [email or web address] c l Thony ter DateTime : 02/01/20 16 09:49:24 AM Not Available Not Available Not Available oxycodone -acetamin ophen 5 mg-325 mg tablet TAKE 1 TABLET BY MOUTH EVERY 4 HOURS NEEDED FOR PAIN active Not Available Not Available No t Available amoxicill in 875 mg tablet 01/15 completed Not Available Not Available Not Available famotidin e 20 mg tablet TAKE 1 TABLET BY MOUTH AT BEDTIME active Not Available Not Available No t Available meclizine 25 mg tablet TAKE 1 TABLET BY MOUTH THREE TIMES DAILY NEEDED FOR DIZZINES S 07/29 completed Not Available Not Available Not Available phenazopy ridine 100 mg tablet TAKE 1 TABLET BY MOUTH THREE TIMES DAILY FOR 5 DAYS active Not Available Not Available No t Available hyoscyami ne sulfate 0.125 mg tablet TAKE 1 TABLET BY MOUTH TWICE DAILY active Not Available Not Available No t Available Cipro 500 mg tablet Take 1 tablet every 12 hours by oral route. 2023 active Not Available Not Available Not Avai lable lisinopri l 10 mg tablet TAKE 1 TABLET BY MOUTH DAILY active Not Available Not Available No t Available furosemid e 20 mg tablet TAKE 1 TABLET BY MOUTH EVERY MORNING NEEDED FOR SWELLING active Not Available Not Available No t Available cefuroxim e axetil 500 mg tablet TAKE 1 TABLET BY MOUTH EVERY 12 HOURS FOR 10 DAYS active Not Available Not Available No t Available levofloxa last 500 mg tablet 03/15 completed Not Available Not Available Not Available Vitamin D2 1,250 mcg (50,000 unit) capsule take 1 capsule by oral route every week 01/15 completed Prescrib ed Elsewher e: Yes [facility] By: [email or web address] Encounte r DateTime : 10/26/19 17 01:30:00 PM Not Available Not Available Not Available colestipo l 5 gram oral packet active Not Available Not Available Not Available cefdinir 300 mg capsule TAKE 1 CAPSULE BY MOUTH EVERY 12 HOURS 03/29 completed Not Available Not Available Not Available naproxen 500 mg tablet active Not Available Not Available Not Available amoxicill in 875 mg-potass ium clavulana te 125 mg tablet TAKE 1 TABLET BY MOUTH EVERY 12 HOURS FOR 7 DAYS active Not Available Not Available No t Available nabumeton e 500 mg tablet TAKE 1 TABLET BY MOUTH TWICE DAILY 11/01 completed Not Available Not Available Not Available Bactrim DS 800 mg-160 mg tablet take 1 tablet by oral route every 12 hours 10/25 completed Prescrib ed Elsewher e: No Locat ion: Jayson monroe [facility] odify By: radha Encounte r DateTime : 07/19/19 17 09:00:00 AM Not Available Not Available Not Available Multi-Vit amins with Iron chewable tablet 01/15 completed Prescrib ed Elsewher e: Yes Loca tion: [facility] odify By: radha Encounte r DateTime : 10/26/19 17 01:30:00 PM Not Available Not Available Not Available Calcium-5 00 500 mg (as calcium carbonate 1,250 mg) tablet 01/15 completed Prescrib ed Elsewher e: Yes Loca tion: [facility] odify By: radha Encounte r DateTime : 10/26/19 17 01:30:00 PM Not Available Not Available Not Available ciproflox acin 0.3 %-dexamet hasone 0.1 % ear drops,carrol pension INT 4 GTS AEA Q 12 H 01/15 completed Not Available Not Available Not Available nitrofura ntoin monohydra te/macroc rystals 100 mg capsule TAKE 1 CAPSULE BY MOUTH EVERY 12 HOURS WITH FOOD FOR 7 DAYS active Not Available Not Available No t Available Vitamins and Minerals active Not Available Not Available Not Available [place] Oil 1,000 mg capsule 10/25 completed Prescrib ed Elsewher e: Yes [facility] By: radha Encounte r DateTime : 06/27/19 14 05:30:00 PM Not Available Not Available Not Available Contrave 8 mg-90 mg tablet,ex tended release TAKE 1 TABLET BY MOUTH EVERY 12 HOURS active Not Available Not Available No t Available Slynd 4 mg (28) tablet Take 1 tablet every day by oral route as directed for 60 days, for AUB. 2022 active Not Available Not Available Not Avai lable Vitals Date Recorded Body height Body mass index (BMI) Body weight Systolic blood pressure Diastolic blood pressure Provider Name and Address Organization Details Last Updated DateTime 11/20/2023 165.1 cm 38.4 kg/m2 693046.8 4 g 119 mm[Hg] 80 mm[Hg] [facility] 4 17:22:01 Date Recorded Body height Body mass index (BMI) Body weight Systolic blood pressure Diastolic blood pressure Provider Name and Address Organization Details Last Updated DateTime 01/31/2023 165.1 cm 38.9 kg/m2 140228.6 1 g 126 mm[Hg] 80 mm[Hg] [facility] 3 11:05:42 Date Recorded Body height Body mass index (BMI) Body weight Systolic blood pressure Diastolic blood pressure Provider Name and Address Organization Details Last Updated DateTime 02/09/2023 165.1 cm 38.9 kg/m2 867582.6 1 g 127 mm[Hg] 91 mm[Hg] [facility] 3 11:25:56 Social History Question Answer Notes LastModified by Organizat ion Details LastModified Time Tobacco Smoking Status Never Smoker [facility] 02/09/2023 11:18:15 Are You Blind Or Do You Have Difficulty Seeing? No Information n ot available 07/29/2021 What Is Your Level Of Caffeine Consumption? Moderate Information not available 01/19/2023 How Much Tobacco Do You Chew? None [email or web address] Information not available 03/29/2022 In The 14 Days Before Symptom Onset, Have You Had Close Contact With A Laboratory-confirm ed COVID-19 While That Case Was Ill? No [email or web address] Information n ot available 03/29/2022 In The 14 Days Before Symptom Onset, Have You Had Close Contact With A Person Who Is Under Investigation For COVID-19 While That Person Was Ill? No [email or web address] Information not available 03/29/2022 Have You Been To An Area Known To Be High Risk For COVID-19? No [email or web address] Information not available 03/29/2022 Are You Deaf Or Do You Have Serious Difficulty Hearing? No Information not available 07/29/2021 What Type Of Diet Are You Following? REGULAR Information n ot available 07/29/2021 What Is The Highest Grade Or Level Of School You Have Completed Or The Highest Degree You Have Received? [id number] Information not available 01/19/2023 Are There Any Guns Present In Your Home? No Information not available 03/29/2022 Do You Use Protection During Sex? No [email or web address] Information not available 03/29/2022 Do You Use Your Seat Belt Or Car Seat Routinely? Yes [email or web address] Information not available 03/29/2022 Do You Have Smoke And Carbon Monoxide Detectors In Your Home? Yes [email or web address] Information not available 03/29/2022 How Much Tobacco Do You Smoke? No Information not available 03/29/2022 Do You Use Sunscreen Routinely? Yes [email or web address] Information not available 03/29/2022 Have You Used IV Drugs? No [email or web address] Information not available 03/29/2022 Do You Have Difficulty Walking Or Climbing Stairs? No [email or web address] Information not available 02/09/2023 Sex: Unknown Functional Status Question Answer Note LastModified by Organizat ion Details LastModified Time Do you use any illicit or recreational drugs? No [email or web address] Information not available 03/29/2022 What is your level of alcohol consumption? Occasional [email or web address] Information not available 03/29/2022 Are you able to walk? YESWOREST Information not available 07/29/2021 Are you able to care for yourself? 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 No [email or web address] Information not available 02/09/2023 What is your exercise level? Occasional Information not available 07/29/2021 Mental Status Question Answer Note LastModified by Organization D etails LastModified Time Do you feel stressed (tense, restless, nervous, or anxious, or unable to sleep at night)? [id number] Information not available 03/29/2022 Family History Relationship Description Onset Age of this Age Resolved Age Notes LastModified by Organization Details LastModified Time Father Malignant neoplasm of urinary bladder Not available 2022 11:18:14 Sister Asthma [email or web address] Not available 10:09:15 Sister Diabetes mellitus [email or web address] Not available 2022 10:09:15 Sister Chronic obstructive pulmonary disease Not available 2022 11:18:14 Mother Chronic obstructive pulmonary disease Not available 2022 11:18:14 Medical History Condition Response Allergies (Food, seasonal, environmental ) N Other N Breast Cancer N Drug/Latex Allergies/Reactions N Blood Transfusion N Dermatologic Disorders N Lung Disease N Defects or Inherited Disease N Breast Problem Y Gestational Diabetes N Hematologic disorders N Anesthesia Complications N History of STI N Deep Vein Thrombosis N Polycystic ovary syndrome N Anxiety Disorder N Autoimmune disease N Arthritis N Infertility N Polyps N Acid Reflux (GERD) N History of abnormal pap N Cancer N Stroke N Varicosities N Neurologic/Epilepsy N Endometriosis N High Cholesterol N Headaches N Fibromyalgia N Kidney Disease N Heart Problems N Kidney or Bladder Problems N Thyroid Problems N GI Problems N Eating Disorder N Anemia N Art (IVF or FET) N Psychiatric Illness N Ovarian Cancer N Diabetes N Pulmonary (TB, Asthma) N Hepatitis/Liver Disease N No Past Medical History N Eczema N Urinary Tract Infection N Abuse/Domestic Violence N Asthma N Trauma/Violence N Depression/ depression N Heart Disease N Pre-Eclampsia N Hypertension N Osteoporosis N Thrombophilias N Gynecological History Statement/Question Response Abnormal Pap N Date of Last Mammogram 03/17/2022 Flow Light Date of LMP 12/22/2022 On BCP's at Conception? Y Was last menstrual period normal N STIs/STDs N HPV Vaccine N 12/18/2020 Current Control Method Hysterectom y Age at First Child 21 Are cycles usually normal N Sexually Active? Y Menses Monthly N Age of first menstrual cycle 12 Date of Last Pap Smear 03/29/2022 Sexual Problems? N LMP Definite N Obstetrics History GPAL:G 2 P 2 0 0 2 Type Value Full Term 2 Living 2 Total 2 Past Encounters Encounter ID Performer Location Encounter Start Date Encounter Closed Date Diagnosis/Indication Diagnosis SNOMED-CT Code Diagnosis ICD10 Code Diagnosis Note [id number] [facility] [address],[facility] [place] [address] 02/12/2020 11:23:21 02/12/2020 11:55:26 Gynecologic examination [id number] Z01.419 Suggested Calcium with Vitamin D 1200-1500m g daily. Patient advised to get an annual flu shot in the fall and she could obtain at [facility] or [facility] care clinic. Also to obtain TDap vaccinatio n if you have not had one in the last 10 years. Recommend yearly mammograms . Encouraged monthly self breast exams. Encourage safe sexual practices, to use condoms and limit partners if not already in a monogamous relationsh ip. Engage in daily exercise of low impact aerobic exercise 45-60 minutes 4-5 times weekly. Avoid tobacco and illicit drugs as well as using moderation with alcohol intake less than 1-2 8 oz beverages daily. This lifestyle behavior pattern will lead to less health conditions and longer life span. If BMI greater than 25 weight watchers or dietary consult advised. All questions have been answered. Patient appears to understand informatio n, but if you have any questions please call or respond to this email. [id number] Meena Nolan [facility] [address],[facility] [place] [address] 03/15/2021 09:56:15 03/15/2021 10:38:30 Gynecologic examination [id number] Z01.419 Z11.51 Suggested Calcium with Vitamin D 1200-1500m g daily. Patient advised to get an annual flu shot in the fall and she could obtain at [facility] or [facility] clinic. Also to obtain TDap vaccinatio n if you have not had one in the last 10 years. Recommend yearly mammograms . Encouraged monthly self breast exams. Encourage safe sexual practices, to use condoms and limit partners if not already in a monogamous relationsh ip. Engage in daily exercise of low impact aerobic exercise 45-60 minutes 4-5 times weekly. Avoid tobacco and illicit drugs as well as using moderation with alcohol intake less than 1-2 8 oz beverages daily. This lifestyle behavior pattern will lead to less health conditions and longer life span. If BMI greater than 25 weight watchers or dietary consult advised. All questions have been answered. Patient appears to understand informatio n, but if you have any questions please call or respond to this email. [id number] RICCARDO Baker [facility] [address] [address] 07/29/2021 17:15:10 07/30/2021 12:18:15 Pain of breast [id number] N64.4 Pain in right breast x 5 days. We discussed could be due to recent menses, as her breast are usually sore leading up to her period. Will order imaging of the right breast, breast exam normal minus tenderness during exam.Last mammogram 11/2020, normalWe discussed limiting caffeine, supportive bra with no wires, comfort measures.W ill await imaging, we discussed if pain persist may need referral to breast specialist . Patient agrees. Time spent with the patient was 25 minutes [id number] Meena Nolan CN[facility] [address] [address] 12/13/2021 14:40:25 12/13/2021 14:59:21 Pain of right breast [id number] N64.4 Will check prolactin. Since this has persisted she would like to see a specialist . Will send info to [facility]. Pt will call us if she has not heard back within 1 week. [id number] Meena Nolan CN[facility] [address] [address] 03/29/2022 09:29:50 03/29/2022 10:08:23 Gynecologic examination [id number] Z01.419 Z11.51 Suggested Calcium with Vitamin D 1200-1500m g daily. Patient advised to get an annual flu shot in the fall and she could obtain at [facility] or [facility] take care clinic. Also to obtain TDap vaccinatio n if you have not had one in the last 10 years. Recommend yearly mammograms . Encouraged monthly self breast exams. Encourage safe sexual practices, to use condoms and limit partners if not already in a monogamous relationsh ip. Had labs recently for routine health panel. States is being followed by pcp. Engage in daily exercise of low impact aerobic exercise 45-60 minutes 4-5 times weekly. Avoid tobacco and illicit drugs as well as using moderation with alcohol intake less than 1-2 8 oz beverages daily. This lifestyle behavior pattern will lead to less health conditions and longer life span. If BMI greater than 25 weight watchers or dietary consult advised. All questions have been answered. Patient appears to understand informatio n, but if you have any questions please call or respond to this email. Mass of left breast [id number] N63.20 Mastodynia of bilateral breasts [id number] N64.4 Pt canceled appt with breast specialist . Wanted to wait until she had additional imaging. I still recommend follow up with specialist . Pt will call today to reschedule . [id number] Adrienne Fitzpatrick , [facility] [address],[facility] [place] [address] 11/01/2022 17:37:33 11/02/2022 16:15:08 Abnormal uterine bleeding [id number] 9100 N93.9 The patient and I discussed the various causes of abnormal uterine bleeding, including polyps, fibroids, hyperplasi a, atypia, anovulatio n, etc. We reviewed the typical evaluation with labs, pelvic US and possible endometria l biopsy. Briefly discussed the options available for treatment (depending on the results of evaluation ) such as hormonal treatment (OCPs, progestins ), Mirena, endometria l ablation, and surgery. We spent more than 30 minutes face to face. Will do virtual f/u unless results require in person presence/M D consult.ST D urine sentUPT neg Irregular periods [id number] N92.6 [id number] Veto Mendoza MD [facility] [address] [address] 11/02/2022 16:28:07 11/03/2022 14:06:36 Abnormal uterine bleeding [id number] 9100 N93.9 [id number] Veto Mendoza MD [facility] [address],[place] [address] 11/07/2022 17:13:16 11/08/2022 15:28:21 Menorrhagia [id number] N92.0 this patient is a 47-year-ol d female with severe menorrhagi a and abnormal uterine bleeding. She has tried and failed multiple medical treatments . We talked about a variety of treatments today. We talked about all the medical options. Talked about endometria l ablation and hysterecto my. The patient would like to move forward with definitive surgical treatment at this time. We agreed to robotic assisted hysterecto my with bilateral salpingect jhony. We spent over 40 minutes face-to-fa ce. More than 50% was counseling . Needed decision to perform surgery. [id number] [facility] [address] [address] 01/03/2023 10:01:31 01/03/2023 10:30:56 Menorrhagia [id number] N92.0 N94.5 NOTE: previously worked up for AUB/Menorr hagia/Dysm enorrhea. Today we reviewed Hysterecto my with bilateral salpingect jhony.She canceled her original surgery date b/c she was worried she would go into premature menopause; we discussed that it did not look like her ovaries would be removed; which doesn't have to happen unless there are high risks cancers/ot her issues. She has agreed to reschedule her surgical procedure but wanted to make it clear she....CARRERA S NOT WANT HER OVARIES REMOVED!!! ! Until surgical procedure she will start slynd to help decrease the amount of intermenst rual AUB.Sample s given & if any issues please let us know. Counseled on medication R/B's, Most common side effects, & use. All questions were answered to patient satisfacti on. Time spent in visit is a total of 20 mins with at least 50% of visit consisting of counseling and review of plan of care. [id number] Veto Mendoza MD [facility] [address] [address] 01/19/2023 10:17:13 01/19/2023 10:55:16 Menorrhagia [id number] N92.0 this patient is a 47-year-ol d female with severe menorrhagi a. we agreed to perform total laparoscop ic hysterecto my bilateral salpingect jhony. She understand s the risks, benefits, and alternativ es surgery she is completed the informed consent process is ready to proceed. [id number] Veto Mendoza MD [facility] [address],[place] [address] 01/31/2023 10:01:37 02/01/2023 08:44:49 Postoperative care [id number] Z48.89 female Patient presents for postop follow-up. She is 1 week postop from a total laparoscop ic hysterecto my bilateral salpingect jhony. She has no complaints . Her incisions are clean dry and intact. She is recovering normally. She will follow-up as needed. [id number] MD Teresa Burton [address],[place] [address] 02/09/2023 11:17:06 02/09/2023 12:04:41 Urinary symptoms [id number] R39.9 47-year-ol d female who presents with malaise and urinary symptoms. Blood and leukocytes in her urine on dip. To culture urine. To treat urinary tract infection. Patient is 2-3 weeks postop from a laparoscop ic hysterecto my. She is recovering normally. [id number] Veto Mendoza MD [facility] [address],[place] [address] 2023 09:33:46 2023 11:24:43 [id number] TANIYA DICK MD [facility] [address],[place] [address] 11/20/2023 17:06:36 11/20/2023 17:56:01 Urinary symptoms [id number] R39.9 [id number] Veto Mendoza MD [facility] [address],[place] [address] 12/11/2023 13:43:46 12/11/2023 15:02:15 Urinary symptoms [id number] R39.9 47-year-ol d female who presents with malaise and urinary symptoms. Blood and leukocytes in her urine on dip. To culture urine. To treat urinary tract infection. Patient is 2-3 weeks postop from a laparoscop ic hysterecto my. She is recovering normally. Health Concerns Section Related Observation LastModified by Organization Detai ls LastModified Time None Recorded Concern Status LastModified by Organization Details LastModified Time None Recorded Advance Directives Directive None Recorded Payers Encounter Date Sequence Insurance Name Policy Number Policy Suarez Covered Member ID Suarez Member ID Guarantor Name 01/25/2023 1 [employer] [id number] Yomi Dew [id number] Sheri Dew 01/31/2023 1 [employer] [id number] Yomi Dew [id number] Sheri Dew 02/09/2023 1 [employer] [id number] Yomi Dew [id number] Sheri Dew 11/20/2023 1 [employer] [id number] Yomi Dew [id number] Sheri Dew 12/11/2023 1 [employer] [id number] Yomi Dew [id number] Sheri Dew Notes Date Note Type Note Provider Name and Address Organization Details Recorded Time 01/31/2023 text/html female Patient presents for postop follow-up. She is 1 week postop from a total laparoscopic hysterectomy bilateral salpingectomy. She has no complaints. Her incisions are clean dry and intact. She is recovering normally. She will follow-up as needed. Veto Mendoza MD [address], [place], [address], [facility] 01/31/2023 19:38:33 02/09/2023 text/html 47-year-old fema le who presents with malaise and urinary symptoms. Blood and leukocytes in her urine on dip. To culture urine. To treat urinary tract infection. Patient is 2-3 weeks postop from a laparoscopic hysterectomy. She is recovering normally. Veto Mendoza MD [address], [place], [address], [facility] 02/09/2023 12:03:58 OBGyn Episode Ob Episode Information Episode Created Date Number of Fetuses Patient Bloodtype Patient rh Status Prepregnancy Weight lbs Domestic Partner Domestic Partner Phone Father Name Copy Holder Status 02/12/20 20 1 CLOSED Fetus Data First Name Last Name Admitted to NICU Weight (g) Sex Living Outcome Pediatric Complications Fetus ID Race Codes Race Delivery Type 3628.73 6 F Full Term 6222 Vaginal Delivery Kvng Calculation Initial Kvng Date Initial Exam Date Initial Exam Provider Initial Ultrasound Date Last Menstrual Period Date Ultra Sound Weeks Gestation 0 Eighteen To Twenty Week Kvng Update Ultra Sound Date Fundal Height At Umbil Quickening Date Ultra Sound Latest Weeks Gestation Final Kvng Confirmed By Final Kvng Confirmed Date Final Kvng Date Ultra Sound Latest Days Gestation 0 0 Menstrual History Last Menstrual Date Menses Monthly On Bcp Conception Prior Menses Frequency Hcg Plus Date Menarche Onset Age Delivery Information Delivery Date Delivery Type Labor Anesthesia Weeks Gestation Incision Type Labor Labor Length Hrs Delivered By Post Complications Tubal Sterilization Discharge Date Comments 7 38 Discharge Information Feeding Method Contraceptive Method Maternal HG B and HCT Levels Ob Episode Information Episode Created Date Number of Fetuses Patient Bloodtype Patient rh Status Prepregnancy Weight lbs Domestic Partner Domestic Partner Phone Father Name Copy Holder Status 02/12/20 20 1 CLOSED Fetus Data First Name Last Name Admitted to NICU Weight (g) Sex Living Outcome Pediatric Complications Fetus ID Race Codes Race Delivery Type 3175.14 4 M Full Term [id number] Vaginal Delivery Kvng Calculation Initial Kvng Date Initial Exam Date Initial Exam Provider Initial Ultrasound Date Last Menstrual Period Date Ultra Sound Weeks Gestation 0 Eighteen To Twenty Week Kvng Update Ultra Sound Date Fundal Height At Umbil Quickening Date Ultra Sound Latest Weeks Gestation Final Kvng Confirmed By Final Kvng Confirmed Date Final Kvng Date Ultra Sound Latest Days Gestation 0 0 Menstrual History Last Menstrual Date Menses Monthly On Bcp Conception Prior Menses Frequency Hcg Plus Date Menarche Onset Age Delivery Information Delivery Date Delivery Type Labor Anesthesia Weeks Gestation Incision Type Labor Labor Length Hrs Delivered By Post Complications Tubal Sterilization Discharge Date Comments 0 38 Discharge Information Feeding Method Contraceptive Method Maternal HG B and HCT Levels
--- OUTSIDE RECORDS SUMMARY | 2024-08-23 13:05 | XMS_ITS | Clinical Summary ---
Author Organization [facility] Remote Assistant Address [address] [place] [address] Care Team Providers Care Planer Setup Operator Name Role Phone Leonides Broderick MD Primary Care Provider [phone] Source Comments [facility] Remote Assistant,non-owned Affiliates and Associated Physician Practices is amultiple site organization consisting of ambulatory clinics and hospital sitesin [place], [place], [place] and [place]. This disclosure is being madepursuant to the Care Everywhere program and may not contain all information available regarding this patient. Last updated 17.Software 2000 Remote Assistant Allergies No known active allergies Medications * Be aware that medications may not be up to date on this document. Alwaysverify current medications with the patient. famotidine (Pepcid) 20 MG tablet Take 1 (one) tablet by mouth at bedtime 30 tablet 3 3 Active omeprazole (PriLOSEC) 40 MG capsule Take 1 (one) capsule by mouth 2 times daily, before breakfast and supper 60 capsule 1 4 Active sucralfate (Carafate) 1 GM/10ML suspension SHAKE LIQUID WELL& TAKE 10 ML BY MOUTH THREE TIMES DAILY( REASONS: RECTUM INFLAMMATION AFTER RADIATION TREATMENT) 900 mL 2 4 Active lisinopril (Prinivil; Zestril) 10 MG tablet Take 1 (one) tablet by mouth once daily 4 Active ondansetron, disintegrating, (Zofran ODT) 4 MG tablet Take 1 (one) tablet by mouth every 6 hours as needed for Nausea/Vomiting Allow tablet to dissolve on the tongue 30 tablet 05/09/2024 5:35 PM DEVELOPER PROGRAMMER ANALYST Active tiZANidine (Zanaflex) 4 MG tablet Take 1 (one) tablet by mouth nightly as needed for Muscle Spasms Regular refill hx, most recently #30 tabs on 04/05/2024 Active Active Problems Problem Noted Date Diagnosed Date S/P gastric bypass 05/08/2024 Abdominal pain, epigastric 02/13/2024 Morbid obesity due to excess calories 02/04/2016 Essential hypertension 02/04/2016 Encounters Date Type Department Care Team Description 06/10/2024 2:00 PM CDT Video Visit [facility] Weight Management Services [id number] [place] [address], [address] [place] [address] Adrienne Sarah APRN-DONNA Dysphagia, unspecified type 06/10/2024 Travel 06/10/2024 Telephone [facility] [id number] [place] [address], [address] [place] [address] Otis Saucedo MD Procedure 05/24/2024 Telephone [facility] [address], [address] [place] [address]/LDN Diet 05/24/2024 Telephone [facility] [address], [address] [place] [address] Nieves Bermudez, ZAYDA/LDN Diet from Last 3 Months Immunizations Immunization Administration Dates Next Due INFLUENZA VACCINE, QUADR. (F LUZONE; FLULAVAL; FLUARIX; AFLURIA QUADRIVALENT; 6MO+), 0.5 ML (IIV4) 04/11/2017 Family History Medical History Relation Name Comments Cancer Father bladder 1994 Relation Name Status Comments Father Social History Tobacco Use Types Packs/Day Years Used Date Smoking Tobacco: Never Passive Smoke Exposure: Past Smokeless Tobacco: Never Tobacco Cessation:Counseling Given: Not Answered Alcohol Use Standard Drinks/Week Comments Not Currently 0 (1 standard drink = 0.6 oz pur e alcohol) AUDIT-C Answer Date Recorded Q1: How often do you have a drink containing alcohol? Never 05/08/2024 Q2: How many drinks containi ng alcohol do you have on a typical day when you are drinking? Patient does not drink Q3: How often do you have si x or more drinks on one occasion? Never 05/08/2024 Overall Financial Resource Strain (CARDIA) Answe r Date Recorded How hard is it for you to pa y for the very basics like food, housing, medical care, and heating? Not hard at all 05/08/2024 [facility] - Occupational Stress Questionnaire Answer Date Recorded Do you feel stress - tense, restless, nervous, or anxious, or unable to sleep at night because your mind is troubled all the time - these days? Only a little 05/08/2024 Hunger Vital Sign Answer Date Recorded Within the past 12 months, y ou worried that your food would run out before you got the money to buy more. Never true 05/08/19 25 Within the past 12 months, t he food you bought just didn't last and you didn't have money to get more. Never true 05/08/2024 PRAPARE - Transportation Answer Date Re corded In the past 12 months, has l ack of transportation kept you from medical appointments or from getting medications? No 04/27 In the past 12 months, has l ack of transportation kept you from meetings, work, or from getting things needed for daily living? No 05/08/2024 Housing Stability Vital Sign Answer Cheo e Recorded In the last 12 months, was t here a time when you were not able to pay the mortgage or rent on time? No 05/08/2024 In the past 12 months, how m any times have you moved where you were living? 1 05/08/2024 At any time in the past 12 m [facility], were you homeless or living in a alf (including now)? No 05/08/2024 Comments No Sex and Gender Information Value Date Recorded Sex Assigned at Not on file Legal Sex Female 10:27 AM CDT Gender Identity Not on file Sexual Orientation Not on file Last Filed Vital Signs Vital Sign Reading Time Taken Comments Blood Pressure 124/62 05/10/2024 8:11 AM DEVELOPER PROGRAMMER ANALYST Pulse 54 05/10/2024 8:11 AM DEVELOPER PROGRAMMER ANALYST Temperature 36.8 C (98.2 F) 05/10/2024 8:11 AM DEVELOPER PROGRAMMER ANALYST Respiratory Rate 18 05/10/2024 8:11 AM DEVELOPER PROGRAMMER ANALYST Oxygen Saturation 94% 05/10/2024 8:11 AM DEVELOPER PROGRAMMER ANALYST Inhaled Oxygen Concentration - - Weight 88.9 kg (196 lb) 06/10/2024 2:09 PM CDT Height 170.2 cm (5' 7) 06/10/2024 2:09 PM CDT Body Mass Index 30.7 06/10/2024 2:09 PM CDT Plan of Treatment Upcoming Encounters Date Type Department Care Team (Late st Contact Info) Description 11/07/2024 10:00 AM CDT Office Visit [facility] Health Weight Management Services [address], [address] [place] [address] Adrienne Sarah APRN-FORMS BUILDER [address] [place] [address] 05/08/2025 10:00 AM DEVELOPER PROGRAMMER ANALYST Office Visit [facility] Weight Management Services [address], [address] [place] [address] Adrienne Sarah APRN-FORMS BUILDER [address] [place], [place] [id number] Health Maintenance Due Date Last Done Comments COLOGUARD (AGES 45-75) - COLON CA SCREENING 1976 COLON MONITORING 1976 COLONOSCOPY - COLON CA SCREENING 1976 CT COLONOGRAPHY - COLON CA SCREENING 1976 Colorectal Cancer Screening 1976 FIT - COLON CA SCREENING 1976 FLEX SIG - COLON CA SCREENING 1976 LIPID TESTING 1976 MAMMOGRAM 1976 HIV SCREENING 1991 HEPATITIS C SCREENING 02/26/1994 DTAP/TDAP/TD VACCINES (1 - Tdap) 1995 HEPATITIS B VACCINE (1 of 3 - 19+ 3-dose series) 1995 COVID-19 VACCINE ( - season) 2023 04/02/2021, 07/12/2020, 06/22/2020 DEPRESSION SCREENING 03/27/2024 INFLUENZA VACCINE (Season Ended) 2024 02/08/2018, 04/11/2017, 04/25/2016, Additional history exists PAP SMEAR 03/29/2025 03/29/2022 ZOSTER VACCINE (1 of 2) 2026 SCREENING FOR DIABETES 05/10/2027 , 05/10/2024, 05/09/2024, Additional history exists HIB VACCINE Aged Out No longer eligi ble based on patient's age to complete this topic HPV VACCINE Aged Out No longer eligi ble based on patient's age to complete this topic MENINGOCOCCAL (Group B) VACCINE SHARED DECISION-MAKING Aged Out No longer eligible based on patient's age to complete this topic MENINGOCOCCAL GROUPS A/C/Y/W VACCINE Aged Out No longer eligible based on patient's age to complete this topic PNEUMOCOCCAL VACCINE Aged Out No long er eligible based on patient's age to complete this topic Procedures Procedure Name Priority Date/Time Associated Diagnosis Comments BASIC METABOLIC PANEL (CALCIUM TOTAL) AM Draw 05/10/2024 3:34 AM DEVELOPER PROGRAMMER ANALYST from Last 3 Months or Most Recently Relevant to Health Maintenance Results * (ABNORMAL) BASIC METABOLIC PANEL (CALCIUM TOTAL) (05/10/2024 3:34 AM DEVELOPER PROGRAMMER ANALYST) [facility] Glucose 78 70 - 99 mg/dL 05/10/2024 4:25 AM DEVELOPER PROGRAMMER ANALYST [facility] Sodium 140 136 - 145 mmol/L 05/10/2024 4:25 AM DEVELOPER PROGRAMMER ANALYST [facility] Potassium 4.3 3.5 - 5.1 mmol/L 05/10/2024 4:25 AM DEVELOPER PROGRAMMER ANALYST [facility] Chloride 110(H) 98 - 107 mmol/L 05/10/2024 4:25 AM DEVELOPER PROGRAMMER ANALYST [facility] CO2 24 22 - 29 mmol/L 05/10/2024 4:25 AM DEVELOPER PROGRAMMER ANALYST [facility] Calcium 9.1 8.4 - 10.4 mg/dL 05/10/2024 4:25 AM DEVELOPER PROGRAMMER ANALYST [facility] Anion Gap 6 6 - 16 mmol/L 05/10/2024 4:25 AM [facility] BUN 19(H) 5.3 - 18.7 mg/dL 05/10/2024 4:25 AM [facility] Creatinine 0.75 0.57 - 1.11 mg/dL 05/10/2024 4:25 AM DEVELOPER PROGRAMMER ANALYST [facility] eGFR by CKD-EPI >90 >=90 mL/min/1.7 3 m2 05/10/2024 4:25 AM DEVELOPER PROGRAMMER ANALYST [facility] Blood BLOOD SPECIMEN / Unknown Venipuncture / Unknown 05/10/2024 3:34 AM DEVELOPER PROGRAMMER ANALYST 05/10/2024 4:00 AM DEVELOPER PROGRAMMER ANALYST us Otis Saucedo MD LAB - CHEMISTRY ORDERABLES Fi nal Result [facility] [address] [place] [address] from Last 3 Months or Most Recently Relevant to Health Maintenance Insurance [place] [facility] [address] [id number] [employer] Advance Directives * Full Code (Latest Code Status on File) Date Activated Date Inactivated Comments 05/08/2024 11:36 AM 05/10/2024 12:20 PM * Full Code Date Activated Date Inactivated Comments 02/13/2024 3:45 PM 02/16/2024 7:41 PM * Full Code Date Activated Date Inactivated Comments 02/13/2024 1:27 PM 02/13/2024 3:45 PM * Full Code Date Activated Date Inactivated Comments 08/31/2016 4:12 PM 09/01/2016 4:05 PM Care Teams Planer Setup Operator Relationship Specialty Start Date End Date Leonides Broderick MD [address] [place] [address] PCP - General Family Medicine 12/02/14
--- OUTSIDE RECORDS SUMMARY | 2024-08-23 13:05 | XMS_ITS | Encounter Summary ---
Author Organization [facility] Healthcare Address [address] [place] [address] Care Team Providers Care Operations Label Clerk Name Role Phone Unavailable Primary Care Provider Unavailabl e Reason for Visit * Diagnostic Imaging (Routine) - Closed Specialty Diagnoses / Procedures Referred By Godwin t Referred To Contact Procedures Breast Imaging Diagnostic Outside Reference Isaiah Hernandez NP Phone: tel: fax: Referral ID Status Reason Start Date Expiration Date Visits Re quested Visits Authorized [id number] Closed 02/22/2022 03/24/2023 1 1 Encounter Details Date Type Department Care Team (Late st Contact Info) Description 03/25/2013 12:05 AM 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 Never 08/13/2024 Q2: How many drinks containi ng alcohol do you have on a typical day when you are drinking? Patient does not drink Frequency of Binge Drinking Not on file 07/26 Personal Safety Answer Date Recorded Have you ever been in or are you currently in a harmful physical or emotional relationship or is someone making you feel afraid or unsafe? Denies 08/13/2024 Comments No Sex and Gender Information Value Date Recorded Sex Assigned at Not on file Legal Sex Female 10:59 AM CDT Gender Identity Not on file Sexual Orientation Not on file documented as of this encounter Functional Status * Audit-C Score Answer Date of Assessment Author 0 11/03/2022 12:50 PM CDT Thao Brown RN * Question Answer Date of Assessment Author Q1: How often do you have a drink containing alcohol? Never 08/13/2024 10:09 AM LUIS FELIPET Mala Benavides RN Q2: How many drinks containing alcohol do you have on a typical day when you are drinking? Patient does not drink 08/13/2024 10:09 AM CDT Mala Benavides RN Q3: How often do you have six or more drinks on one occasion? Never 11/03/2022 12:50 PM CDT Thao Brown RN documented as of this encounter Plan of Treatment Upcoming Encounters Date Type Department Care Team (Latest Contact Info) Description 08/27/2024 9:50 AM CDT Hospital Encounter [facility] [place] [address] [place] [address] Contreras Damon MD [address] [place] [address] DR [address] [place] [phone] 08/27/2024 9:50 AM CDT Anesthesia Event [facility] [place] [address] [place] [address] Linh Bell NP [address] [place] [id number] 08/27/2024 9:50 AM CDT - 08/27/2024 12:05 PM CDT Surgery [facility] [place] [address] [place] [address] Contreras Damon MD [address] [place] [address] DR [address] [place] [phone] LEFT TOTAL KNEE ARTHROPLASTY Scheduled Procedures Name Priority Associated Diagnoses Date/Ti me ARTHROPLASTY TOTAL KNEE Primary osteoarthritis of left knee 08/27/2024 9:50 AM CDT documented as of this encounter Procedures Procedure Name Priority Date/Time Associated Diagnosis Comments BREAST IMAGING MG DIAGNOSTIC OUTSIDE REFERENCE Routine 03/25/2013 12:05 AM 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 There will be no report generated by a [facility] Radiologist. Narrative [facility] - 02/22/2022 9:16 AM IN CLASS SPECIAL EDUCATION TEACHER EXAMINATION: Images For Reference Purposes Only us Isaiah Hernandez NP IMG MAMMO PROCEDURES Final Result [facility] documented in this encounter Visit Diagnoses Not on filedocumented in this encounter
--- OUTSIDE RECORDS SUMMARY | 2024-08-23 13:05 | XMS_ITS | Clinical Summary ---
Author Organization [facility] Address [address] [place] [address] Care Team Providers Care Yardage Estimator Name Role Phone Jany Carpenter Unavailable [phone] Leonides Broderick MD Primary Care Provider + [phone] Allergies Active Allergy Reactions Criticality Noted Date Comments Nsaids (Non-Steroidal Anti-Inflammatory Drug) Other (See comments) 08/13/[address] IN [address] Medications multivitamin with iron tablet Take 1 tablet by mouth nightly BARIATRIC MULTIVITAMIN W/ 45 MG IRON Active calcium carbonate-vitam in D3 (CALTRATE 600 + D) 1500 mg (600 mg elemental) -400 units per tablet Take 2 tablets by mouth daily Active nabumetone (RELAFEN) 500 mg tablet Take 1 tablet (500 mg total) by mouth as needed 3 Active tiZANidine (ZANAFLEX) 4 mg tablet TAKE 1 TABLET BY MOUTH EVERY DAY AT BEDTIME NEEDED FOR MUSCLE SPASMS 3 Active ciprofloxacin (CIPRO) 500 mg tablet Take 1 tablet (500 mg total) by mouth every 12 (twelve) hours 3 Active famotidine (PEPCID) 20 mg tablet Take 1 tablet (20 mg total) by mouth nightly 3 Active nitrofurantoin monohydrate (MACROBID) 100 mg capsule TAKE 1 CAPSULE BY MOUTH EVERY 12 HOURS FOR 5 DAYS 3 Active omeprazole (PriLOSEC) 20 mg capsule Take 1 capsule (20 mg total) by mouth 3 Active lisinopriL (PRINIVIL,ZESTR IL) 10 mg tablet Take 1 tablet (10 mg total) by mouth daily 4 Active cefuroxime (CEFTIN) 500 mg tablet Take 1 tablet (500 mg total) by mouth every 12 (twelve) hours for 10 days 4 Active hyoscyamine (LEVSIN) 0.125 mg tablet Take 1 tablet (0.125 mg total) by mouth 2 (two) times a day 3 Active furosemide (LASIX) 20 mg tablet Take 1 tablet (20 mg total) by mouth daily as needed (SWELLING IN LEGS) Active traMADoL (ULTRAM) 50 mg tablet Take 1 tablet (50 mg total) by mouth every 6 (six) hours as needed for pain 5 Active triamcinolone (KENALOG) 0.1 % cream Apply 1 g topically as needed for irritation or rash Active Active Problems Problem Noted Date Diagnosed Date Primary osteoarthritis of left knee 07/12/2024 Orthopedic aftercare 11/30/2022 Acute medial meniscus tear of left knee 11/04/19 23 Breast pain 08/17/2022 08/17/2022 Calculus of kidney 08/17/2022 08/17/2022 Mass of breast 04/20/2022 Iron deficiency anemia 07/02/2021 3 Reactive thrombocytosis 07/02/2021 08/18/19 23 Arachnoid cyst 03/13/2018 Bleeding 10/19/2017 Overview (11/30/2022): Abnormal uterine and vaginal bleeding, unspecified;Recorded Elsewhere: No Location: [facility] Source: EHR Chronic: N Practice ID: [id number] Billable Time: 11:00:00 AM Obesity with body mass index 30 or greater 10/25 Overview (11/30/2022): Body mass index (BMI) 39.0-39.9, adult;Recorded Elsewhere: No Location: [facility] Source: EHR Chronic: N Practice ID: [id number] Billable Time: 01:30:00 PM Urinary tract infectious disease 07/18/2016 Overview (11/30/2022): Urinary tract infection, site not specified;Practice ID: [id number] Essential hypertension 02/04/2016 3 Morbid obesity due to excess calories 02/04/2016 08/17/2022 Leukocytosis 01/25/2016 Overview (11/30/2022): Elevated white blood cell count, unspecified;Recorded Elsewhere: No Location: [facility] Source: EHR Chronic: N Practice ID: [id number] Billable Time: 11:30:00 AM Encounters Date Type Department Care Team Description 08/13/2024 9:30 AM CDT Pre-Admission Testing [facility] PreAdmission Testing [address] [place] [address] Preop examination (Primary Dx); Primary osteoarthritis of left knee; Preop testing 08/13/2024 8:32 AM CDT - 08/13/2024 11:59 PM CDT Hospital Encounter [facility] Diag Imaging [address] [place] [address] Primary osteoarthritis of left knee Discharge Disposition: Discharge to home or self care 08/13/2024 7:45 AM CDT Therapy [facility] OP Physical Therapy [address] [place] [phone] Charity Delgado, PT Unilateral primary osteoarthritis, left knee (Primary Dx); Primary osteoarthritis of left knee 08/13/2024 Documentation [facility] [address] [address] Kaylyn Mcconnell RN 08/13/2024 Plan of Care Documentation [facility] OP Physical Therapy [address] [place] [address] 08/09/2024 Orders Only [facility] Orthopedics and Sports Medicine [address] [place] [phone] Contreras Damon MD Primary osteoarthritis of left knee (Primary Dx) 07/12/2024 8:30 AM CDT Office Visit [facility] Orthopedics and Sports Medicine [address] [place] [phone] Contreras Damon MD Primary osteoarthritis of left knee (Primary Dx) 07/12/2024 Orders Only [facility] Orthopedics and Sports Medicine [address] [place] [address] [place] [phone] Contreras Dmaon MD Primary osteoarthritis of left knee (Primary Dx) 06/10/2024 3:15 PM CDT Office Visit [facility] Orthopedics and Sports Medicine [address] [place] [address] [place] [phone] Contreras Damon MD Primary osteoarthritis of left knee (Primary Dx) from Last 3 Months Immunizations Immunization Administration Dates Next Due Hep B Vaccine 05/01/2017 Influenza, Quadrivalent, Spl it, Preservative Free, Intramuscular 04/11/2017 Influenza, Trivalent, Preservative Free, Intramu scular 04/25/2016,01/13/2015 Influenza, Unspecified 02/08/2018 Tdap 04/28/2017,09/22/2011 Surgical History Surgery Date Site/Laterality Comments CHOLECYSTECTOMY APPENDECTOMY ESOPHAGOGASTRODUODENOSCOPY 05/05/2016 SLEEVE GASTROPLASTY 03/27/2016 - 03/26/2017 SLEEVE GASTROPLASTY 04/27/2024 - 05/24/2024 REVISION HYSTERECTOMY 01/26/2024 - 02/24/2024 SUPERFICIAL LYMPH NODE BIOPS Y / EXCISION UNDER CHIN Medical History Medical History Date Comments Anemia GERD (gastroesophageal reflux disease) NO LONGER AN ISSUE AFTER BYPASS REVISION 04/2024 Urinary tract infection NO SYMPT OMS FOR PAST 6 MONTHS Anesthesia complication required oxygen in post op period, issue resolved once fully awake Anesthesia complication Head Ach e Obesity Abnormal menstrual cycle bleedin g greater than 1 week, being followed by tourism radio presenter Hiatal hernia NO FURTHER ISSUE S AFTER SURGERY. Left knee pain 10/2022 MAGED (iron deficiency anemia) manasa es iron supplements Hypertension Family History Medical History Relation Name Comments Bladder Cancer Father Aneurysm Mother Diabetes Sister Relation Name Status Comments Father Mother Sister Social History Tobacco Use Types Packs/Day Years Used Date Smoking Tobacco: Never Smokeless Tobacco: Never Tobacco Cessation:Counseling Given: Not Answered Alcohol Use Standard Drinks/Week Comments No 0 [...] on file Sexual Orientation Not on file Obstetrics History Last Filed Vital Signs Vital Sign Reading Time Taken Comments Blood Pressure 130/72 08/13/2024 9:30 AM CDT lt upper arm Pulse 59 08/13/2024 9:30 AM CDT Temperature 36.2 C (97.2 F) 08/13/2024 9:30 AM CDT Respiratory Rate 14 08/13/2024 9:30 AM CDT Oxygen Saturation 100% 08/13/2024 9:3 0 AM CDT Inhaled Oxygen Concentration - - Weight 86.1 kg (189 lb 12.8 oz) 08/13/2024 9:30 AM CDT Height 170.2 cm (5' 7) 08/13/2024 9:30 AM CDT Body Mass Index 29.73 08/13/2024 9:30 AM CDT Plan of Treatment Upcoming Encounters Date Type Department Care Team (Latest Contact Info) Description 08/27/2024 9:50 AM CDT Hospital Encounter [facility] [place] [address] [place] [address] Contreras Damon MD [facility] [address] [address] 08/27/2024 9:50 AM CDT Anesthesia Event [facility] [place] [address] [place] [phone] Linh Bell NP [address] [place] [address] 08/27/2024 9:50 AM CDT - 08/27/2024 12:05 PM CDT Surgery [facility] [place] [address] [place] [address] Contreras Damon MD [address] [facility] [place] [address] LEFT TOTAL KNEE ARTHROPLASTY Scheduled Procedures Name Priority Associated Diagnoses Date/Ti me ARTHROPLASTY TOTAL KNEE Primary osteoarthritis of left knee 08/27/2024 9:50 AM CDT Health Maintenance Due Date Last Done Comments Colon Cancer Screening-Colonoscopy 1976 Depression Screening 1976 Hepatitis C Screening 1976 Regular Well Visit/Exam 18-64 1994 Breast Cancer Screening-Mammogram 03/17/2023 03/17/2022, 02/11/2022, 12/18/2020 Covid-19 Vaccine ( season) 2023 04/02/2021, 07/12/2020, 06/22/2020 Influenza Vaccine (Season Ended) 2024 02/08/2018, 04/11/2017, 04/25/2016, Additional history exists DTaP/Tdap/Td Vaccine (3 - Td or Tdap) 04/28/2027 04/28/2017, 09/22/2011 Hepatitis B Screening Completed 05/01/2017 Pneumococcal vaccine <65 Aged Out No longer eligible based on patient's age to complete this topic Procedures Procedure Name Priority Date/Time Associated Diagnosis Comments EGFR Routine 08/13/2024 9:54 AM CDT Primary osteoarthritis of left knee Preop testing DIFFERENTIAL AUTO Routine 08/13/2024 9:5 4 AM CDT Primary osteoarthritis of left knee Preop testing ANTIBODY SCREEN Routine 08/13/2024 9:54 AM CDT Primary osteoarthritis of left knee Preop testing ABO/RH Routine 08/13/2024 9:54 AM CDT Primary osteoarthritis of left knee Preop testing COMPREHENSIVE METABOLIC PANEL Routine 08/13/2024 9:54 AM CDT Primary osteoarthritis of left knee Preop testing CBC WITH AUTO DIFFERENTIAL Routine 08/13/2024 9:54 AM CDT Primary osteoarthritis of left knee Preop testing TYPE AND SCREEN 14 DAY Routine 08/13/2024 9:54 AM CDT Primary osteoarthritis of left knee Preop testing INFECTION PREVENTION MRSA ONLY (STAPHYLOCOCCUS AUREUS) PCR Routine 08/13/2024 9:54 AM CDT Primary osteoarthritis of left knee Preop testing ECG 12-LEAD Routine 08/13/2024 9:31 AM CDT Preop examination XR KNEE LEFT 3 VIEWS Schedule Routine, Read Routine (OP Routine) 08/13/2024 8:38 AM CDT Primary osteoarthritis of left knee KS ARTHROCENTESIS ASPIR&/INJ MAJOR JT/BURSA W/O US Routine 07/12/2024 8:30 AM CDT Primary osteoarthritis of left knee KS ARTHROCENTESIS ASPIR&/INJ MAJOR JT/BURSA W/O US Routine 06/10/2024 3:15 PM CDT Primary osteoarthritis of left knee from Last 3 Months Results * eGFR (08/13/2024 9:54 AM CDT) eGFR >90 >=60 mL/min/1. 73 m2 Comment: Interpretive Data Reference Interval Normal >/= 90 mL/min/1.73m2 Mildly decreased* 60 - 89 mL/min/1.73m2 Mildly to moderately decreased 45 - 59 mL/min/1.73m2 Moderately to severely decreased 30 - 44 mL/min/1.73m2 Severely decreased 15 - 29 mL/min/1.73m2 Kidney Failure < 15 mL/min/1.73m2 *Relative to young adult level Estimated glomerular filtration rate is determined by the 2020 CKD-EPI equation recommended by the National Kidney Foundation (A Unifying Approach to GFR Estimation: Recommendations of the NKF-ASK Task Force on Reassessing the Inclusion of Race in Diagnosing Kidney Disease, JASN 2020). The CKD-EPI equation should not be used for patients with unstable renal function and has not been validated in children and those over 70. Current interpretive data was last reviewed 2021. Blood 08/13/2024 9:54 AM CDT 08/13/2024 9:57 AM CDT us Contreras Damon MD LAB BLOOD ORDERABLES F inal Result [facility] [address] [facility] [address] [facility] [place] [address] * Differential, auto (08/13/2024 9:54 AM CDT) Pathologist [facility] [place] Neutrophil abs 5.22 1.50 - 6.50 K/cumm Imm gran abs 0.02 0.00 - 0.10 K/cumm [facility] Lymphocyte abs 2.14 0.80 - 3.30 K/cumm [facility] Monocyte abs 0.47 0.20 - 0.80 K/cumm [facility] Eosinophil abs 0.14 0.00 - 0.50 K/cumm [facility] Basophil abs 0.05 0.00 - 0.10 K/cumm [facility] Neutrophil pct 65.1 % [facility] Comment: Interpretive Data Percent cell count reference ranges are not reported, since discordance with absolute values may lead to misinterpretation of CBC data. Current Interpretive Data was last revised on 2017. Imm gran pct 0.2 % [facility] Comment: Interpretive Data Percent cell count reference ranges are not reported, since discordance with absolute values may lead to misinterpretation of CBC data. Current Interpretive Data was last revised on 2017. Lymphocyte pct 26.6 % [facility] Comment: Interpretive Data Percent cell count reference ranges are not reported, since discordance with absolute values may lead to misinterpretation of CBC data. Current Interpretive Data was last revised on 2017. Monocyte pct 5.8 % [facility] Comment: Interpretive Data Percent cell count reference ranges are not reported, since discordance with absolute values may lead to misinterpretation of CBC data. Current Interpretive Data was last revised on 2017. Eosinophil pct 1.7 % [facility] Comment: Interpretive Data Percent cell count reference ranges are not reported, since discordance with absolute values may lead to misinterpretation of CBC data. Current Interpretive Data was last revised on 2017. Basophil pct 0.6 % [facility] Comment: Interpretive Data Percent cell count reference ranges are not reported, since discordance with absolute values may lead to misinterpretation of CBC data. Current Interpretive Data was last revised on 2017. Blood 08/13/2024 9:54 AM CDT 08/13/2024 9:57 AM CDT Contreras Damon MD LAB BLOOD ORDERABLES F inal Result Performing Organization Address City/[facility]/ZIP Co de Phone Number [place] [id number] [facility] [place] [address] * Infection Prevention MRSA Only (Staphylococcus aureus) PCR Nasal (08/13/2024 9:54 AM CDT) Pathologist [facility] [place] PCR Scrn, Methicillin resistant Staphylococcus aureus (MRSA) Not Detected Not Detected Comment: Interpretive Data Testing performed using Nucleic Acid Amplification with the [employer] Xpert MRSA NxG Assay. This assay detects target DNA from mecA, mecC and the SCCmec insertion site of Staphylococcus aureus using Real-Time PCR and has been cleared by the FDA. Performance characteristics have been verified by the [facility]. Current Interpretive Data was last revised on 2022 Nasal 08/13/2024 9:54 AM CDT 08/13/2024 9:58 AM CDT Contreras Damon MD LAB MICROBIOLOGY - GEN ERAL ORDERABLES Final Result Performing Organization Address City/[facility]/ZIP Co de Phone Number [facility] [address] [facility] [place] [address] * CBC with auto differential (08/13/2024 9:54 AM CDT) [facility] WBC 8.04 3.80 - 9.90 K/cumm Hgb 14.2 11.9 - 15.5 g/dL [facility] Hct 43.5 35.6 - 45.5 % [facility] Plt 377 150 - 400 K/cumm [facility] MPV 9.1 9.1 - 12.3 fL [facility] RBC 4.97 3.90 - 5.20 M/cumm [facility] MCV 87.5 81.3 - 96.4 fL [facility] MCH 28.6 27.1 - 33.3 pg [facility] MCHC 32.6 32.3 - 35.7 g/dL [facility] RDW CV 14.6 11.1 - 14.9 % [facility] RDW SD 46.9 35.7 - 48.1 fL [facility] NRBC abs 0.00 0.00 - 0.01 K/cumm [facility] Blood 08/13/2024 9:54 AM CDT 08/13/2024 9:57 AM CDT Contreras Damon MD LAB BLOOD ORDERABLES F inal Result Performing Organization Address [facility] de Phone Number [address] [place] [address] * ABO/Rh (08/13/2024 9:54 AM CDT) ABO/Rh A Positive Blood 08/13/2024 9:54 AM CDT 08/13/2024 9:58 AM CDT Narrative [facility] - 08/13/2024 10:36 AM CDT Is this test being ordered in advance for a procedure?->Yes Expected date of procedure:->08/27/24 Has the patient been transfused in the past 3 months?->No Has the patient been in the past 3 months?->No Contreras Damon MD LAB BLOOD BANK TEST OR DERABLES Final Result Performing Organization Address [facility] Co de Phone Number [address] [address] * Antibody screen (08/13/2024 9:54 AM CDT) Latoya, indirect, Gel Interpretation Negative ABSC Blood 08/13/2024 9:54 AM CDT 08/13/2024 9:58 AM CDT Narrative [facility] - 08/13/2024 10:36 AM CDT Is this test being ordered in advance for a procedure?->Yes Expected date of procedure:->08/27/24 Has the patient been transfused in the past 3 months?->No Has the patient been in the past 3 months?->No Contreras Damon MD LAB BLOOD BANK TEST OR DERABLES Final Result [facility] [address] [facility] [place] [address] * Comprehensive metabolic panel (08/13/2024 9:54 AM CDT) Sodium 140 135 - 145 mmol/L Potassium, pl 3.6 3.3 - 4.9 mmol/L [facility] Chloride 102 97 - 110 mmol/L [facility] CO2 26 22 - 32 mmol/L [facility] Anion gap 12 2 - 15 mmol/L [facility] BUN 13 6 - 25 mg/dL [facility] Creatinine 0.67 0.60 - 1.10 mg/dL [facility] Glucose 84 70 - 199 mg/dL [facility] Comment: Interpretive Data Fasting glucose >/= 126 mg/dl is diagnostic for diabetes. Fasting is defined as no caloric intake for at least 8 hours. Fasting glucose between 100 mg/dl to 125 mg/dl is diagnostic of prediabetes. In a patient with classic symptoms of hyperglycemia or hyperglycemic crisis, a random glucose >/= 200 mg/dl is diagnostic for diabetes. In the absence of unequivocal hyperglycemia, results should be confirmed by repeat testing. The classification and Diagnosis of Diabetes Diabetes Care 202; 46: S19-S40. Current interpretive data was last revised 2022. Calcium 9.6 8.5 - 10.3 mg/dL [facility] Bilirubin, total 0.3 0.1 - 1.2 mg/dL [facility] Protein, pl 7.3 6.5 - 8.5 g/dL [facility] Albumin 4.3 3.5 - 5.0 g/dL [facility] Alk phos 112 40 - 130 Units/L [facility] ALT 18 7 - 45 Units/L [facility] AST 18 10 - 45 Units/L [facility] Blood 08/13/2024 9:54 AM CDT 08/13/2024 9:57 AM CDT Contreras Damon MD LAB BLOOD ORDERABLES F inal Result Performing Organization Address [facility] de Phone Number [facility] [address] [facility] [place] [address] * ECG 12 lead (08/13/2024 9:31 AM CDT) Ventricular Rate EKG/Min 57 BPM [facility] Atrial Rate 57 BPM [facility] [place]-Interval (MSEC) 140 ms [facility] QRS-Interval (MSEC) 90 ms [facility] QT-Interval (MSEC) 408 ms [facility] QTc 397 ms [facility] P [place] 30 degrees [facility] R [place] 59 degrees [facility] T [place] 3 degrees [facility] Diagnosis Sinus bradycardia Otherwise normal ECG No previous ECGs available Confirmed by SULTAN LEPE M.D. ([id number]) on 08/13/2024 3:11:03 PM [facility] 08/13/2024 9:31 AM CDT 08/13/2024 3:11 PM CDT Linh Bell FILM CASTING OPERATOR ECG ORDERABLES Viridiana l Result Performing Organization Address [facility] de Phone Number [facility] * XR Knee Left 3 Views (08/13/2024 8:38 AM CDT) Anatomical Region Laterality Modality Lower Extremities, Knee Left Computed Radiography 08/16/2024 5:43 PM CDT Narrative 08/16/2024 5:44 PM CDT EXAM DESCRIPTION: XR KNEE LEFT 3 VIEWS REASON FOR STUDY: pain Increased medial knee pain for 1 year, no injury FINDINGS: Three views submitted with comparison 08/24/2022. Severe medial predominant left knee osteoarthritis. Genu varus is present. Small knee effusion. No acute fracture. IMPRESSION: Severe medial predominant left knee osteoarthritis with genu varus. THIS IS AN ELECTRONICALLY VERIFIED FINAL REPORT 08/16/2024 5:44 PM - Electronically signed by Clyde Montez M.D. T: Report ID: [id number] Reading Location: [id number] Procedure Note Clyde Montez MD - 08/16/2024 EXAM DESCRIPTION: XR KNEE LEFT 3 VIEWS REASON FOR STUDY: pain Increased medial knee pain for 1 year, no injury FINDINGS: Three views submitted with comparison 08/24/2022. Severe medial predominant left knee osteoarthritis. Genu varus ispresent. Small knee effusion. No acute fracture. IMPRESSION: Severe medial predominant left knee osteoarthritis with genu varus. THIS IS AN ELECTRONICALLY VERIFIED FINAL REPORT 08/16/2024 5:44 PM - Electronically signed by Clyde Montez M.D. T: Report ID: [id number] Reading Location: [id number] us Contreras Damon MD IMG XR PROCEDURES Viridiana l Result * [place] ARTHROCENTESIS ASPIR&/INJ MAJOR JT/BURSA W/O US (07/12/2024 8:30 AM CDT) Narrative Contreras Damon MD - 07/12/2024 8:30 AM CDT Contreras Damon MD 07/13/2024 10:06 AM Large Joint (Hip, Knee, Shoulder) Injection: L knee Performed by: Contreras Damon MD Authorized by: Contreras Damon MD Large Joint Injection/Aspiration: Consent Given by: Patient Site marked: the procedure site was marked Timeout: prior to procedure the correct patient, procedure, and site was verified Verbal consent obtained: Yes Written consent obtained: No Supporting Documentation: Indications: Pain Procedure Details: Location: Knee Site: L knee Prep: patient was prepped using a clean technique Needle Size: 21 G Ultrasound guided: No Fluroscopic guidance: No Medications: 60 mg hyaluronate sodium, stabilized 60 mg/3 mL Patient tolerance: Patient tolerated the procedure well with no immediate complications Contreras Damon MD IN CLINIC/BEDSIDE [facility] Final Result * [place] ARTHROCENTESIS ASPIR&/INJ MAJOR JT/BURSA W/O US (06/10/2024 3:15 PM CDT) Narrative Contreras Damon MD - 06/10/2024 3:15 PM CDT Contreras Damon MD 06/13/2024 1:46 PM Large Joint (Hip, Knee, Shoulder) Injection: L knee Performed by: Contreras Damon MD Authorized by: Contreras Damon MD Large Joint Injection/Aspiration: Consent Given by: Patient Site marked: the procedure site was marked Timeout: prior to procedure the correct patient, procedure, and site was verified Verbal consent obtained: Yes Written consent obtained: No Supporting Documentation: Indications: Pain Procedure Details: Location: Knee Site: L knee Prep: patient was prepped using a clean technique Needle Size: 22 G Ultrasound guided: No Medications: 1 mL lidocaine 10 mg/mL (1 %); 40 mg triamcinolone 40 mg/mL Patient tolerance: Patient tolerated the procedure well with no immediate complications Contreras Damon MD IN CLINIC/BEDSIDE [facility] Final Result from Last 3 Months Insurance [employer] Care Teams Yardage Estimator Relationship Specialty Start Date End Date Leonides Broderick MD [address] [place] [address] PCP - General Family Medicine 07/24/24 Jany Carpenter PA [address] [facility] [place] [address] Physician Tub Attendant Orthopedic Surgery 11/17/22
--- OUTSIDE RECORDS SUMMARY | 2024-08-23 13:05 | XMS_ITS | Clinical Summary ---
Author Organization [facility] uvaldo [facility] Address [address] [place] [address] Care Team Providers Care Protective Signal Repairer Helper Name Role Phone Leonides Broderick MD Primary Care Provider Allergies No known active allergies Medications cyclobenzaprine (FLEXERIL) 10 mg tablet 2 Active traMADoL (ULTRAM) 50 mg tablet Take 50 mg by mouth every 8 hours as needed. 2 Active calcium carbonate + vitamin D (CALTRATE+D) 600 mg-10 mcg (400 unit) Tablet Take 2 Tablets by mouth daily. Active multivitamins with iron Tablet Take 1 Tablet by mouth daily. Bariatric multivitamin with iron daily Active colestipoL (COLESTID) 5 gram Packet MIX 1 PACKETFUL IN LIQUID IN 3 OUNCES AND DRINK BY MOUTH TWICE DAILY Active famotidine (PEPCID) 20 mg tablet Take 20 mg by mouth. 3 Active hyoscyamine sulfate 0.125 mg tablet Take 0.125 mg by mouth 2 times daily. 3 Active naproxen (NAPROSYN) 500 mg tablet Take 500 mg by mouth 2 times daily. 3 Active omeprazole (PriLOSEC) 20 mg Capsule, Delayed Release(E.C.) Take 20 mg by mouth. 3 Active sucralfate (CARAFATE) 100 mg/mL suspension Take 1 Gram by mouth. 3 Active Active Problems Patient Care Coordination No te Formatting of this note migh t be different from the original. 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 Iron deficiency anemia 07/02/2021 Breast mass 05/27/2013 Nephrolithiasis Breast pain Mastodynia Kidney stone Resolved Problems Problem Noted Date Diagnosed Date Resolved Date Breast lump 05/27/2013 Breast lump 05/27/2013 Family History Medical History Relation Name Comments Diabetes Brother Diabetes Sister 1 Relation Name Status Comments Brother Alive Daughter 1 Alive Daughter 2 Alive Father Alive Mother Sister 1 Alive Sister 2 Alive Sister 3 Alive Sister 4 Alive Son Alive Social History Tobacco Use Types Packs/Day Years Used Date Smoking Tobacco: Never Smokeless Tobacco: Never Tobacco Cessation:Counseling Given: Not Answered Alcohol Use Standard Drinks/Week Comments Yes 0 (1 standard drink = 0.6 oz pur e alcohol) rarely Comments No Sex and Gender Information Value Date Recorded Sex Assigned at Not on file Legal Sex Female 10:13 AM TEST BORE HELPER Gender Identity Not on file Sexual Orientation Not on file Occupation Industry Job Start Date Job End Date Not on file Not on file Not on file Not on file Last Filed Vital Signs Vital Sign Reading Time Taken Comments Blood Pressure 169/78 03/29/2023 10:04 AM TEST BORE HELPER Pulse 74 03/29/2023 10:01 AM TEST BORE HELPER Temperature 36.4 C (97.5 F) 03/29/2023 10:01 AM TEST BORE HELPER Respiratory Rate 10 03/29/2023 10:01 AM TEST BORE HELPER Oxygen Saturation 98% 03/29/2023 10:01 AM TEST BORE HELPER Inhaled Oxygen Concentration - - Weight 107.5 kg (237 lb) 03/29/2023 10:01 AM TEST BORE HELPER Height 170.2 cm (5' 7) 07/02/2021 9:58 AM CDT Body Mass Index 37.12 07/02/2021 9:58 AM CDT Plan of Treatment Upcoming Encounters Date Type Department Care Team (Late st Contact Info) Description 08/26/2024 11:30 AM CDT Office Visit [facility] Oncology and Hematology - [place] [address] [place] [address] Julio Marquez MD [address] [place] [address] Health Maintenance Due Date Last Done Comments HEPATITIS B VACCINES (1 of 3 - 19+ 3-dose series) 1995 05/01/2017 BREAST CANCER SCREENING 2016 COLORECTAL SCREENING 2021 Colorectal Cancer Screening 2021 FIT-DNA Q 3 years 2021 FIT/FOBT Q 1 year 2021 Flex Sig/CT Colonography Q 5 years 2021 INFLUENZA VACCINE (#1) 2023 8, 04/25/2016, 01/13/2015 DTAP/TDAP/TD VACCINES (3 - T d or Tdap) 04/28/2027 04/28/2017, 09/22/2011 Insurance [facility] [place] [id number] [facility] BLUE [employer]/TRUE [employer] PPO Care Teams Protective Signal Repairer Helper Relationship Specialty Start Date End Date Leonides Broderick MD [address] [place] [id number] PCP - General Family Practice 07/02/21
--- OUTSIDE RECORDS SUMMARY | 2024-08-23 13:05 | XMS_ITS | Encounter Summary ---
Author Organization [facility] Address [address] [place] [address] Care Team Providers Care Lead Quality Technician Name Role Phone Unavailable Primary Care Provider Unavailabl e Reason for Visit * Diagnostic Imaging (Routine) - Closed Specialty Diagnoses / Procedures Referred By Godwin t Referred To Contact Procedures Breast Imaging US Outside Reference Isaiah Hernandez NP Phone: tel: fax: Referral ID Status Reason Start Date Expiration Date Visits Re quested Visits Authorized [id number] Closed 02/22/2022 03/24/2023 1 1 Encounter Details Date Type Department Care Team (Late st Contact Info) Description 03/25/2013 Hospital Encounter [facility] [address] [place] [address] Social History Tobacco Use Types Packs/Day Years [...] Description 08/27/2024 9:50 AM CDT Hospital Encounter [facility] [place] [address] [place] [address] Contreras Damon MD [address] [place] [address] DR MARTIN [address] [place] [address] 08/27/2024 9:50 AM CDT Anesthesia Event [facility] [place] [address] [place] [address] Linh Bell NP [address] [place] [address] 08/27/2024 9:50 AM CDT - 08/27/2024 12:05 PM CDT Surgery [facility] [place] [address] [place] [address] Contreras Damon MD [address] [place] [address] DR MARTIN [address] [place] [address] LEFT TOTAL KNEE ARTHROPLASTY Scheduled Procedures Name Priority Associated Diagnoses Date/Ti me ARTHROPLASTY TOTAL KNEE Primary osteoarthritis of left knee 08/27/2024 9:50 AM CDT documented as of this encounter Procedures Procedure Name Priority Date/Time Associated Diagnosis Comments BREAST IMAGING US OUTSIDE REFERENCE Routine 03/25/2013 12:00 AM COUNTY SHERIFF documented in this encounter Results * Breast Imaging US Outside Reference (03/25/2013 12:00 AM COUNTY SHERIFF) Impressions [facility] - 02/22/2022 9:16 AM COUNTY SHERIFF These images are for Reference purposes only and have not been reviewed by [facility] Radiology. There will be no report generated by a [facility] Radiologist. Narrative [facility] - 02/22/2022 9:16 AM COUNTY SHERIFF EXAMINATION: Images For Reference Purposes Only us Isaiah Hernandez NP IMG MAMMO PROCEDURES Final Result [facility] documented in this encounter Visit Diagnoses Not on filedocumented in this encounter
--- OUTSIDE RECORDS SUMMARY | 2024-08-23 13:05 | XMS_ITS | Referral Summary ---
Author Organization [facility] Address [address] [place] [phone] Care Team Providers Care Cottrell Operator Name Role Phone Jany Carpenter Unavailable [phone] Leonides Broderick MD Primary Care Provider [phone] Encounters Date Type Department Care Team Description 08/13/2024 Documentation [facility] [place] [address] [address] Kaylyn Mcconnell RN 08/13/2024 8:32 AM CDT - 08/13/2024 11:59 PM CDT Hospital Encounter [facility] [place] [facility] Di[facility] Imaging [address] [place] [address] Primary osteoarthritis of left knee Discharge Disposition: Discharge to home or self care 08/13/2024 Plan of Care Documentation [facility] [place] [facility] OP Physical Therapy [address] [place] [address] 08/13/2024 9:30 AM CDT Pre-Admission Testing [facility] [place] PreAdmission Testing [address] [place] [address] Preop examination (Primary Dx); Primary osteoarthritis of left knee; Preop testing 08/13/2024 7:45 AM CDT Therapy [facility] [place] [facility] OP Physical Therapy [address] [place] [address] Charity Delgado, PT Unilateral primary osteoarthritis, left knee (Primary Dx); Primary osteoarthritis of left knee 08/09/2024 Orders Only [facility] Orthopedics [facility] Medicine [address] [place] [address] [place] [phone] Contreras Damon MD Primary osteoarthritis of left knee (Primary Dx) 07/12/2024 Orders Only [facility] Medicine [address] [place] [address] [place] [phone] Contreras Damon MD Primary osteoarthritis of left knee (Primary Dx) 07/12/2024 8:30 AM CDT Office Visit [facility] [address] [place] [address] [place] [phone] Contreras Damon MD Primary osteoarthritis of left knee (Primary Dx) 06/10/2024 3:15 PM CDT Office Visit [facility] Medicine [address] [place] [phone] Contreras Damon MD Primary osteoarthritis of left knee (Primary Dx) from Last 3 Months Allergies Active Allergy Reactions Criticality Noted Date [...] and vaginal bleeding, unspecified;Recorded Elsewhere: No Location: [facility] Source: EHR Chronic: N Practice ID: [id number] Billable Time: 11:00:00 AM Obesity with body mass index 30 or greater 10/25 Overview (11/30/2022): Body mass index (BMI) 39.0-39.9, adult;Recorded Elsewhere: No Location: [facility] Source: EHR Chronic: N Practice ID: [id number] Billable Time: 01:30:00 PM Urinary tract infectious disease 07/18/2016 Overview (11/30/2022): Urinary tract infection, site not specified;Practice ID: [id number] Essential hypertension 02/04/2016 3 Morbid obesity due to excess calories 02/04/2016 08/17/2022 Leukocytosis 01/25/2016 Overview (11/30/2022): Elevated white blood cell count, unspecified;Recorded Elsewhere: No Location: [facility] Source: EHR Chronic: N Practice ID: [id number] Billable Time: 11:30:00 AM Immunizations Immunization Administration Dates Next Due Hep B Vaccine 05/01/2017 Influenza, Quadrivalent, Spl it, Preservative Free, Intramuscular 04/11/2017 Influenza, Trivalent, Preservative Free, Intramu scular 04/25/2016,01/13/2015 Influenza, Unspecified 02/08/2018 Tdap 04/28/2017,09/22/2011 Social History Tobacco Use Types Packs/Day Years [...] Description 08/27/2024 9:50 AM CDT Hospital Encounter [facility] OR [address] [place] [address] Contreras Damon MD [address] [place] [address] DR MARTIN [address] [place] [address] 08/27/2024 9:50 AM CDT Anesthesia Event [facility] [place] [address] [place] [address] Linh Bell NP [address] [place] [address] 08/27/2024 9:50 AM CDT - 08/27/2024 12:05 PM CDT Surgery [facility] [place] [address] [place] [address] Contreras Damon MD [address] [place] [address] DR [address]ARTIN [address] [place] [address] LEFT TOTAL KNEE ARTHROPLASTY Scheduled Procedures Name Priority Associated Diagnoses Date/Ti me ARTHROPLASTY TOTAL KNEE Primary osteoarthritis of left knee 08/27/2024 9:50 AM CDT Procedures Procedure Name Priority Date/Time Associated Diagnosis [...] AM CDT Primary osteoarthritis of left knee VA ARTHROCENTESIS ASPIR&/INJ MAJOR JT/BURSA W/O US Routine 07/12/2024 8:30 AM CDT Primary osteoarthritis of left knee VA ARTHROCENTESIS ASPIR&/INJ MAJOR JT/BURSA W/O US Routine [...] MD LAB BLOOD ORDERABLES F inal Result [place] [id number] [facility] Department [place] [address] * Differential, auto (08/13/2024 9:54 AM CDT) Pathologist [facility] Neutrophil abs 5.22 1.50 - 6.50 K/cumm Imm gran abs 0.02 0.00 - 0.10 K/cumm [facility] Lymphocyte abs 2.14 0.80 - 3.30 K/cumm [facility] Monocyte abs 0.47 0.20 - 0.80 K/cumm [facility] Eosinophil abs 0.14 0.00 - 0.50 K/cumm [facility] Basophil abs 0.05 0.00 - 0.10 K/cumm [facility] Neutrophil pct 65.1 % [facility] Comment: Interpretive Data Percent cell count reference ranges are not reported, since discordance with absolute values may lead to misinterpretation of CBC data. Current Interpretive Data was last revised on 2017. Imm gran pct 0.2 % [facility] Comment: Interpretive Data Percent cell count reference ranges are not reported, since discordance with absolute values may lead to misinterpretation of CBC data. Current Interpretive Data was last revised on 2017. Lymphocyte pct 26.6 % [facility] Comment: Interpretive Data Percent cell count reference ranges are not reported, since discordance with absolute values may lead to misinterpretation of CBC data. Current Interpretive Data was last revised on 2017. Monocyte pct 5.8 % [facility] Comment: Interpretive Data Percent cell count reference ranges are not reported, since discordance with absolute values may lead to misinterpretation of CBC data. Current Interpretive Data was last revised on 2017. Eosinophil pct 1.7 % [facility] Comment: Interpretive Data Percent cell count reference ranges are not reported, since discordance with absolute values may lead to misinterpretation of CBC data. Current Interpretive Data was last revised on 2017. Basophil pct 0.6 % [facility] Comment: Interpretive Data Percent cell count reference ranges are not reported, since discordance with absolute values may lead to misinterpretation of CBC data. Current Interpretive Data was last revised on 2017. Blood 08/13/2024 9:54 AM CDT 08/13/2024 9:57 AM CDT Contreras Damon MD LAB BLOOD ORDERABLES F inal Result Performing Organization Address [facility] Co de Phone Number [address] [place] [address] * Infection Prevention MRSA Only (Staphylococcus aureus) PCR Nasal (08/13/2024 9:54 AM CDT) [facility] Signature PCR Scrn, Methicillin resistant Staphylococcus aureus (MRSA) Not Detected Not Detected Comment: Interpretive Data Testing performed using Nucleic Acid Amplification with the [employer] Xpert MRSA NxG Assay. This assay detects target DNA from mecA, mecC and the SCCmec insertion site of Staphylococcus aureus using Real-Time PCR and has been cleared by the FDA. Performance characteristics have been verified by the [facility] Laboratory. Current Interpretive Data was last revised on 2022 Nasal 08/13/2024 9:54 AM CDT 08/13/2024 9:58 AM CDT Contreras Damon MD LAB MICROBIOLOGY - GEN ERAL ORDERABLES Final Result Performing Organization Address City/[facility] Co de Phone Number [address] [place] [address] * CBC with auto differential (08/13/2024 9:54 AM CDT) [facility] WBC 8.04 3.80 - 9.90 K/cumm Hgb 14.2 11.9 - 15.5 g/dL [facility] Hct 43.5 35.6 - 45.5 % [facility] Plt 377 150 - 400 K/cumm [facility] MPV 9.1 9.1 - 12.3 fL [facility] RBC 4.97 3.90 - 5.20 M/cumm [facility] MCV 87.5 81.3 - 96.4 fL [facility] MCH 28.6 27.1 - 33.3 pg [facility] MCHC 32.6 32.3 - 35.7 g/dL [facility] RDW CV 14.6 11.1 - 14.9 % [facility] RDW SD 46.9 35.7 - 48.1 fL [facility] NRBC abs 0.00 0.00 - 0.01 K/cumm [facility] Blood 08/13/2024 9:54 AM CDT 08/13/2024 9:57 AM CDT Contreras Damon MD LAB BLOOD ORDERABLES F inal Result Performing Organization Address City/State/[facility] Co de Phone Number [facility] [place] [address] * ABO/Rh (08/13/2024 9:54 AM CDT) [facility] ABO/Rh A Positive Blood 08/13/2024 9:54 AM CDT 08/13/2024 9:58 AM CDT Narrative [facility] - 08/13/2024 10:36 AM CDT Is this test being ordered in advance for a procedure?->Yes Expected date of procedure:->08/27/24 Has the patient been transfused in the past 3 months?->No Has the patient been in the past 3 months?->No Contreras Damon MD LAB BLOOD BANK TEST OR DERABLES Final Result Performing Organization Address [facility] de Phone Number [address] [address] * Antibody screen (08/13/2024 9:54 AM CDT) [facility] Latoya, indirect, Gel Interpretation Negative ABSC Blood 08/13/2024 9:54 AM CDT 08/13/2024 9:58 AM CDT Narrative [facility] - 08/13/2024 10:36 AM CDT Is this test being ordered in advance for a procedure?->Yes Expected date of procedure:->08/27/24 Has the patient been transfused in the past 3 months?->No Has the patient been in the past 3 months?->No Contreras Damon MD LAB BLOOD BANK TEST OR DERABLES Final Result Performing Organization Address [facility] de Phone Number [place] [id number] [place] [address] * Comprehensive metabolic panel (08/13/2024 9:54 AM CDT) [facility] Sodium 140 135 - 145 mmol/L Potassium, pl 3.6 3.3 - 4.9 mmol/L [facility] Chloride 102 97 - 110 mmol/L [facility] CO2 26 22 - 32 mmol/L [facility] Anion gap 12 2 - 15 mmol/L [facility] BUN 13 6 - 25 mg/dL [facility] Creatinine 0.67 0.60 - 1.10 mg/dL [facility] Glucose 84 70 - 199 mg/dL [facility] Comment: Interpretive Data Fasting glucose >/= 126 [...] 2022. Calcium 9.6 8.5 - 10.3 mg/dL [facility] Bilirubin, total 0.3 0.1 - 1.2 mg/dL [facility] Protein, pl 7.3 6.5 - 8.5 g/dL [facility] Albumin 4.3 3.5 - 5.0 g/dL [facility] Alk phos 112 40 - 130 Units/L [facility] ALT 18 7 - 45 Units/L [facility] AST 18 10 - 45 Units/L [facility] Blood 08/13/2024 9:54 AM CDT 08/13/2024 9:57 AM CDT Contreras Damon MD LAB BLOOD ORDERABLES F inal Result Performing Organization Address City/[facility]/ZIP Co de Phone Number [facility] [address] [facility] Department [place] [address] * ECG 12 lead (08/13/2024 9:31 AM CDT) Ventricular Rate EKG/Min 57 BPM [facility] Atrial Rate 57 BPM [facility] VA-Interval (MSEC) 140 ms [facility] QRS-Interval (MSEC) 90 ms [facility] QT-Interval (MSEC) 408 ms [facility] QTc 397 ms [facility] P [place] 30 degrees [facility] R [place] 59 degrees [facility] T [place] 3 degrees [facility] Diagnosis Sinus bradycardia Otherwise normal ECG No previous ECGs available Confirmed by SULTAN LEPE M.D. ([id number]) on 08/13/2024 3:11:03 PM [facility] 08/13/2024 9:31 AM CDT 08/13/2024 3:11 PM CDT Linh Bell TELEPHONE OPERATOR RECEPTIONIST ECG ORDERABLES Viridiana l Result Performing Organization Address City/[facility]/ZIP Co de Phone Number [facility] * XR Knee Left 3 Views (08/13/2024 [...] by Clyde Montez M.D. T: Report ID: [id number] [place] Location: [id number] Procedure Note Clyde Montez MD - 08/16/2024 [...] by Clyde Montez M.D. T: Report ID: [id number] [place] Location: [id number] Contreras Damon MD IMG XR PROCEDURES Viridiana l Result * [facility] ARTHROCENTESIS ASPIR&/INJ MAJOR JT/BURSA W/O US (07/12/2024 [...] immediate complications Contreras Damon MD [facility] JIMMIE Final Result * VA ARTHROCENTESIS ASPIR&/INJ MAJOR JT/BURSA W/O US (06/10/2024 [...] Final Result from Last 3 Months Insurance [employer] ACCESS OOS BLUE ACCESS OOS [employer] ACCESS OOS Care Teams Cottrell Operator Relationship Specialty Start Date End Date Leonides Broderick MD [address] [place] [address] PCP - General Family Medicine 07/24/24 Jany Carpenter PA [address] [facility] [place] [address] Physician Stave Grader Orthopedic Surgery 11/17/22
--- OUTSIDE RECORDS SUMMARY | 2024-08-23 13:05 | XMS_ITS | Encounter Summary ---
Author Organization [facility] Healthcare Address [address] [place] [address] Care Team Providers Care Passenger Screener Name Role Phone Leonides Broderick MD Primary Care Provider [phone] Reason for Visit * Diagnostic Imaging (Routine) - Closed Specialty Diagnoses / Procedures Referred By Contmaximilian t Referred To Contact Procedures Breast Imaging Screening Outside Reference Iasiah Hernandez NP Phone: tel: fax: Referral ID Status Reason Start Date Expiration Date Visits Re quested Visits Authorized [id number] Closed 02/22/2022 03/24/2023 1 1 Encounter Details Date Type Department Care Team (Late st Contact Info) Description 04/30/2019 Hospital Encounter [facility] [address] [place] [address] Social History Tobacco Use Types [...] Description 08/27/2024 9:50 AM CDT Hospital Encounter [facility] [place] [address] [place] [address] Contreras Damon MD [address] [place] [address] DR MARTIN [address] [place] [address] 08/27/2024 9:50 AM CDT Anesthesia Event [facility] [place] [address] [place] [address] Linh Bell NP [address] [place] [address] 08/27/2024 9:50 AM CDT - 08/27/2024 12:05 PM CDT Surgery [facility] [place] [address] [place] [address] Contreras Damon MD [address] [place] [address] DR MARTIN [address] [place] [address] LEFT TOTAL KNEE ARTHROPLASTY Scheduled Procedures Name Priority Associated Diagnoses Date/Ti me ARTHROPLASTY TOTAL KNEE Primary osteoarthritis of left knee 08/27/2024 9:50 AM CDT documented as of this encounter Procedures Procedure Name Priority Date/Time Associated Diagnosis Comments BREAST IMAGING MG SCREENING OUTSIDE REFERENCE Routine 04/30/2019 12:00 AM CLAMP CARRIER OPERATOR documented in this encounter Results * Breast Imaging Screening Outside Reference (04/30/2019 12:00 AM CLAMP CARRIER OPERATOR) Impressions [facility] - 02/22/2022 9:17 AM CLAMP CARRIER OPERATOR These images are for Reference purposes only and have not been reviewed by [facility]iology. There will be no report generated by a [facility] Radiologist. Narrative [facility] - 02/22/2022 9:17 AM CLAMP CARRIER OPERATOR EXAMINATION: Images For Reference Purposes Only us Isaiah Hernandez BAGGING SALVAGER IMG MAMMO PROCEDURES Final Result [facility] documented in this encounter Visit Diagnoses Not on filedocumented in this encounter Care Teams Passenger Screener Relationship Specialty Start Date End Date Leonides Broderick MD PCP - General Family Medicine 01/26/18 07/23/24 documented as of this encounter
--- OUTSIDE RECORDS SUMMARY | 2024-08-23 13:05 | XMS_ITS | Encounter Summary ---
Author Organization [facility] Healthcare Address [address] [place] [address] Care Team Providers Care Day Care Aide Name Role Phone Unavailable Primary Care Provider Unavailabl e Reason for Visit * Diagnostic Imaging (Routine) - Closed Specialty Diagnoses / Procedures Referred By Godwin t Referred To Contact Diagnoses Mass of right breast, unspecified quadrant Procedures Breast Imaging Screening Outside Reference Isaiah Hernandez NP Phone: tel: fax: Referral ID Status Reason Start Date Expiration Date Visits Re quested Visits Authorized [id number] Closed 02/22/2022 03/24/2023 1 1 Encounter Details Date Type Department Care Team (Late st Contact Info) Description 02/09/2017 Hospital Encounter [facility] [address] [place] [id number] Social History Tobacco Use Types Packs/Day [...] Description 08/27/2024 9:50 AM CDT Hospital Encounter [facility] [place] [address] [place] [phone] Contreras Damon MD [address] [place] [address] DR MARTIN [address] [place] [phone] 08/27/2024 9:50 AM CDT Anesthesia Event [facility] [place] [address] [place] [phone] Linh Bell NP [address] [place] [id number] 08/27/2024 9:50 AM CDT - 08/27/2024 12:05 PM CDT Surgery [facility] [place] [address] [place] [id number] Contreras Damon MD [address] [place] [address] DR MARTIN [address] [place] [id number] LEFT TOTAL KNEE ARTHROPLASTY Scheduled Procedures Name Priority Associated Diagnoses Date/Ti me ARTHROPLASTY TOTAL KNEE Primary osteoarthritis of left knee 08/27/2024 9:50 AM CDT documented as of this encounter Procedures Procedure Name Priority Date/Time Associated Diagnosis Comments BREAST IMAGING MG SCREENING OUTSIDE REFERENCE Routine 02/09/2017 12:00 AM ETHNIC ORIGINS TEACHER Mass of right breast, unspecified quadrant documented in this encounter Results * Breast Imaging Screening Outside Reference (02/09/2017 12:00 AM ETHNIC ORIGINS TEACHER) Impressions [facility] - 02/22/2022 9:15 AM ETHNIC ORIGINS TEACHER These images are for Reference purposes only and have not been reviewed by [facility]. There will be no report generated by a [facility] Radiologist. Narrative [facility] - 02/22/2022 9:15 AM ETHNIC ORIGINS TEACHER EXAMINATION: Images For Reference Purposes Only us Isaiah Hernandez NP IMG MAMMO PROCEDURES Final Result [facility] documented in this encounter Visit Diagnoses Not on filedocumented in this encounter
--- OUTSIDE RECORDS SUMMARY | 2024-08-23 13:05 | XMS_ITS | Clinical Summary ---
Author Organization [facility] Care Team Providers Care Deep Fat Cook Fry Name Role Phone Unavailable Primary Care Provider Unavailabl e Social History Tobacco Use Types Packs/Day Years Used Date Smoking Tobacco: Never Assessed Comments Unknown Sex and Gender Information Value Date Recorded Sex Assigned at Not on file Legal Sex Female 11:00 AM [employer] CH[employer] ATTENDANT Gender Identity Not on file Sexual Orientation Not on file Plan of Treatment Health Maintenance Due Date Last Done Comments Hepatitis C Virus (HCV) Screening 1976 Pap Smear 1997 Cervical Cancer Screening (CCS) 2006 HPV/Cotest 2006 Discussion re Starting/Frequency of Mammograms 2016 Hepatitis B Immunization (2 of 3 - 19+ 3-dose series) 05/29/2017 05/01/2017 Colonoscopy 2021 Colorectal Cancer Screening 2021 Influenza Immunization (#1) 11/26/202303/27, 04/25/2016, 01/13/2015 SARS-COV-2 Immunization ( season) 2023 Respiratory Syncytial Virus (RSV) Immunization (Adult) (1 - 1-dose 75+ series) 2051 DTaP/Tdap/Td Immunization Discontinued 2017, 09/22/2011 TdaP Immunization Completed 04/28/2017, 09/22/2011 Meningococcal Immunization (ACWY) Aged Out No longer eligible based on patient's age to complete this topic Pneumococcal Immunization Combined Aged Out No longer eligible based on patient's age to complete this topic Rotavirus Immunization Aged Out No lo nger eligible based on patient's age to complete this topic
[2024-08-23 13:29] LABS: Basophils Percent Auto 0.5 % (0.2-1.2); Eosinophils Absolute Auto 0.1 K/mm3 (0-0.3); Eosinophils Percent Auto 1.6 % (0-4.4); Hematocrit 42.3 % (37.0-47.0); Hemoglobin 13.6 g/dL (12.0-15.0); Immature Granulocyte Absolute 0.03 K/mm3 (0.00-0.031); Immature Granulocyte Percent A 0.3 % (0-0.5); Lymphocytes Absolute Auto 2.91 K/mm3 (0.9-3.2); Lymphocytes Percent Auto 32.8 % (18.3-44.2); Mean Corpuscular HGB Conc 32.2 g/dl (32-36); Mean Corpuscular Hemoglobin 28.7 pg (26-34); Mean Corpuscular Volume 89.2 fl (80-100); Mean Platelet Volume 9.2 fl (7.4-10.4); Monocytes Absolute Auto 0.6 K/mm3 (0.1-0.6); Neutrophils Absolute Auto 5.1 K/mm3 (1.3-6.7); Neutrophils Percent Auto 57.8 % (45.5-73.1); Platelet Count Result 348 k/mm3 (150-375); Red Blood Count 4.74 M/mm3 (4.2-5.4); White Blood Count 8.9 K/mm3 (4.5-10.0)
[2024-08-23 13:38] LABS: Iron 112 ug/dL (37-170)
[2024-08-23 13:48] LABS: Percent Iron Saturation 31 % (20-50)
== END 2024-08-23 13:01 | disposition home or self-care (01) ==
LOC: ANHLAB 13:02
PROVIDERS: PCP Family Medicine; Visit Provider Internal Medicine Hematology & Oncology
DX: D50.9 Iron deficiency anemia, unspecified (principal)
CPT/HCPCS: 36415; 82728; 83540; 83550; 85025

== ENCOUNTER 2024-11-27 14:33 | Outpatient (CLI) | payer BC, SELFPAY ==
--- OUTSIDE RECORDS SUMMARY | 2013-03-25 01:00 | XMS_ITS | Encounter Summary ---
Author Organization [facility] Healthcare Address [facility] [place] [address] Care Team Providers Care Director Group Sales Name Role Phone Unavailable Primary Care Provider Unavailabl e Reason for Visit * Diagnostic Imaging (Routine) - Closed Specialty Diagnoses / Procedures Referred By Godwin obrien Referred To Contact Procedures Breast Imaging US Outside Reference Isaiah Hernandez NP Phone: tel: fax: Referral ID Status Reason Start Date Expiration Date Visits Re quested Visits Authorized [id number] Closed 02/22/2022 03/24/2023 1 1 Encounter Details Date Type Department Care Team (Late st Contact Info) Description 03/25/2013 Hospital Encounter [facility] [address] [place] [address] Social History Tobacco Use Types Packs/Day Years Used Date Smoking Tobacco: Never Smokeless Tobacco: Never Alcohol Use Standard Drinks/Week Comments No 0 (1 standard drink = 0.6 oz pur e alcohol) [facility] Utilities Answer Date Recorded In the past 12 months has [employer], gas, oil, or water [employer] threatened to shut off services in your [...] How often do you attend chur or anabaptist services? 1 to 4 times per year 08/27/2024 Do you belong to any clubs o r organizations such as rastafari groups, unions, fraternal or athletic groups, or [...] any time in the past 12 m [facility], were you homeless or living in a intermediate (including now)? No 08/27/2024 Personal Safety Answer [...] US OUTSIDE REFERENCE Routine 03/25/2013 12:00 AM INSPECTION AND TESTING SUPERVISOR documented in this encounter Results * Breast Imaging US Outside Reference (03/25/2013 12:00 AM INSPECTION AND TESTING SUPERVISOR) Impressions [facility] - 02/22/2022 9:16 AM INSPECTION AND TESTING SUPERVISOR These images are for Reference purposes only and have not been reviewed by [facility] Radiology. There will be no report generated by a [facility] Radiologist. Narrative [facility] - 02/22/2022 9:16 AM INSPECTION AND TESTING SUPERVISOR EXAMINATION: Images For Reference Purposes Only us Isaiah Hernandez NP IMG MAMMO PROCEDURES Final Result [facility] documented in this encounter Visit Diagnoses Not on filedocumented in this encounter
--- OUTSIDE RECORDS SUMMARY | 2013-03-25 01:05 | XMS_ITS | Encounter Summary ---
Author Organization [facility] Healthcare Address [address] [place] [address] Care Team Providers Care Garment Examiner Name Role Phone Unavailable Primary Care Provider Unavailabl e Reason for Visit * Diagnostic Imaging (Routine) - Closed Specialty Diagnoses / Procedures Referred By Godwin obrien Referred To Contact Procedures Breast Imaging Diagnostic Outside Reference Isaiah Hernandez NP Phone: tel: fax: Referral ID Status Reason Start Date Expiration Date Visits Re quested Visits Authorized [id number] Closed 02/22/2022 03/24/2023 1 1 Encounter Details Date Type Department Care Team (Late st Contact Info) Description 03/25/2013 12:05 AM [facility] Hospital Encounter [facility]iology [facility] [address] [place] [address] Social History Tobacco Use Types Packs/Day Years Used Date Smoking Tobacco: Never Smokeless Tobacco: Never Alcohol Use Standard Drinks/Week Comments No 0 (1 standard drink = 0.6 oz pur e alcohol) [facility] Utilities Answer Date Recorded In the past 12 months has [employer], gas, oil, or water [employer] threatened to shut off services in your [...] How often do you attend chur or restorationist services? 1 to 4 times per year 08/27/2024 Do you belong to any clubs o r organizations such as sabianism groups, unions, fraternal or athletic groups, or [...] any time in the past 12 m [facility], were you homeless or living in [...] DIAGNOSTIC OUTSIDE REFERENCE Routine 03/25/2013 12:05 AM CHIEF METER READER documented in this encounter Results * Breast Imaging Diagnostic Outside Reference (03/25/2013 12:05 AM CHIEF METER READER) Impressions [facility] - 02/22/2022 9:16 AM CHIEF METER READER These images are for Reference purposes only and have not been reviewed by [facility] Radiology. There will be no report generated by a [facility] Radiologist. Narrative [facility] - 02/22/2022 9:16 AM CHIEF METER READER EXAMINATION: Images For Reference Purposes Only us Isaiah Hernandez NP IMG MAMMO PROCEDURES Final Result [facility] documented in this encounter Visit Diagnoses Not on filedocumented in this encounter
--- OUTSIDE RECORDS SUMMARY | 2017-02-09 01:00 | XMS_ITS | Encounter Summary ---
Author Organization [facility] Healthcare Address [facility] [place] [address] Care Team Providers Care Post Doctoral Fellow Name Role Phone Unavailable Primary Care Provider Unavailabl e Reason for Visit * Diagnostic Imaging (Routine) - Closed Specialty Diagnoses / Procedures Referred By Godwin obrien Referred To Contact Diagnoses Mass of right breast, unspecified quadrant Procedures Breast Imaging Screening Outside Reference Isaiah Hernandez NP Phone: tel: fax: Referral ID Status Reason Start Date Expiration Date Visits Re quested Visits Authorized [id number] Closed 02/22/2022 03/24/2023 1 1 Encounter Details Date Type Department Care Team (Late st Contact Info) Description 02/09/2017 Hospital Encounter [facility]iology [facility] [address] [place] [address] Social History Tobacco Use Types Packs/Day Years Used Date Smoking Tobacco: Never Smokeless Tobacco: Never Alcohol Use Standard Drinks/Week Comments No 0 (1 standard drink = 0.6 oz pur e alcohol) [facility] Utilities Answer Date Recorded In the past 12 months has [employer], gas, oil, or water [employer] threatened to shut off services in your [...] How often do you attend chur or mosque services? 1 to 4 times per year 08/27/2024 Do you belong to any clubs o r organizations such as tenriism groups, unions, fraternal or athletic groups, or [...] any time in the past 12 m [facility], were you homeless or living in a skilled nursing (including now)? No 08/27/2024 Personal Safety Answer [...] SCREENING OUTSIDE REFERENCE Routine 02/09/2017 12:00 AM DUCK BILL OPERATOR Mass of right breast, unspecified quadrant documented in this encounter Results * Breast Imaging Screening Outside Reference (02/09/2017 12:00 AM DUCK BILL OPERATOR) Impressions [facility] - 02/22/2022 9:15 AM DUCK BILL OPERATOR These images are for Reference purposes only and have not been reviewed by [facility] Radiology. There will be no report generated by a [facility] Radiologist. Narrative RAD_M[facility] - 02/22/2022 9:15 AM DUCK BILL OPERATOR EXAMINATION: Images For Reference Purposes Only us Isaiah Hernandez NP IMG MAMMO PROCEDURES Final Result [facility] documented in this encounter Visit Diagnoses Not on filedocumented in this encounter
--- OUTSIDE RECORDS SUMMARY | 2019-04-30 01:00 | XMS_ITS | Encounter Summary ---
Author Organization [facility] Healthcare Address [facility] [place] [address] Care Team Providers Care Field Reporter Name Role Phone Leonides Broderick MD Primary Care Provider [phone] Reason for Visit * Diagnostic Imaging (Routine) - Closed Specialty Diagnoses / Procedures Referred By Godwin t Referred To Contact Procedures Breast Imaging Screening Outside Reference Isaiah Hernandez NP Phone: tel: fax: Referral ID Status Reason Start Date Expiration Date Visits Re quested Visits Authorized [id number] Closed 02/22/2022 03/24/2023 1 1 Encounter Details Date Type Department Care Team (Late st Contact Info) Description 04/30/2019 Hospital Encounter [facility] [address] [place] [address] Social History Tobacco Use Types Packs/Day Years Used Date Smoking Tobacco: Never Smokeless Tobacco: Never Alcohol Use Standard Drinks/Week Comments No 0 (1 standard drink = 0.6 oz pur e alcohol) [facility] Utilities Answer Date Recorded In the past 12 months has [employer], gas, oil, or water [employer] threatened to shut off services in your [...] week 08/27/2024 How often do you attend [facility] or hindu services? 1 to 4 times per year 08/27/2024 Do you belong to any clubs o r organizations such as islam groups, unions, fraternal or athletic groups, or [...] time in the past 12 m [facility], were you homeless or living in a half-way (including now)? No 08/27/2024 Personal Safety Answer [...] BREAST IMAGING MG SCREENING OUTSIDE REFERENCE Routine 04/30/2019 12:00 AM PEOPLESOFT FINANCIAL DEVELOPER documented in this encounter Results * Breast Imaging Screening Outside Reference (04/30/2019 12:00 AM PEOPLESOFT FINANCIAL DEVELOPER) Impressions [facility] - 02/22/2022 9:17 AM PEOPLESOFT FINANCIAL DEVELOPER These images are for Reference purposes only and have not been reviewed by [facility] Radiology. There will be no report generated by a [facility] Radiologist. Narrative RAD_M[facility]MO[facility] - 02/22/2022 9:17 AM PEOPLESOFT FINANCIAL DEVELOPER EXAMINATION: Images For Reference Purposes Only us Isaiah Hernandez SURVEILLANCE SYSTEM MONITOR IMG MAMMO PROCEDURES Final Result [facility] documented in this encounter Visit Diagnoses Not on filedocumented in this encounter Care Teams Field Reporter Relationship Specialty Start Date End Date Leonides Broderick MD PCP - General Family Medicine 01/26/18 07/23/24 documented as of this encounter
[2024-11-27 15:35] LABS: Hematocrit 38.3 % (37.0-47.0); Hemoglobin 12.0 g/dL (12.0-15.0); Immature Granulocyte Percent A 0.4 % (0-0.5); Lymphocytes Absolute Auto 2.78 K/mm3 (0.9-3.2); Mean Corpuscular HGB Conc 31.3 g/dl (32-36); Mean Corpuscular Hemoglobin 27.8 pg (26-34); Mean Corpuscular Volume 88.7 fl (80-100); Nucleated Red Blood Cells Absolute Auto 0.000 K/mm3 (0.0-0.012); Nucleated Red Blood Cells Perc 0.0 % (0.0-0.2); Platelet Count Result 317 k/mm3 (150-375); Red Blood Count 4.32 M/mm3 (4.2-5.4); White Blood Count 7.8 K/mm3 (4.5-10.0)
--- OUTSIDE RECORDS SUMMARY | 2024-11-27 16:06 | XMS_ITS | Clinical Summary ---
Author Organization [facility] Address [address] [place] [phone] Care Team Providers Care Awning Craftsman Name Role Phone Jany Carpenter Unavailable [phone] Leonides Broderick MD Primary Care Provider [phone] Allergies Active Allergy Reactions Criticality Noted Date Comments Nsaids (Non-Steroidal Anti-Inflammatory Drug) Other (See comments) 08/13/2024 [address]E IN PL[address] Medications multivitamin with iron tablet Take 1 tablet by mouth nightly BARIATRIC MULTIVITAMIN W/ 45 MG IRON Active calcium carbonate-erendira min D3 (CALTRATE 600 + D) 1500 mg (600 mg elemental) -400 units per tablet Take 2 tablets by mouth daily Active tiZANidine (ZANAFLEX) 4 mg tablet TAKE 1 TABLET BY MOUTH EVERY DAY AT BEDTIME NEEDED FOR MUSCLE SPASMS 3 Active lisinopriL (PRINIVIL,ZEST RIL) 10 mg tablet Take 1 tablet (10 mg total) by mouth daily 4 Active triamcinolone (KENALOG) 0.1 % cream Apply 1 g topically as needed for irritation or rash Active amoxicillin (AMOXIL) 500 mg tablet/capsule Indications:S/ P total knee arthroplasty, left Take 2000 mg (4 tablets/capsules ) one hour prior to dental visit 4 tablet/capsu le 3 5 Active oxyCODONE-acet aminophen (PERCOCET) 10-325 mg per tabletIndicati ons:Pain Take 1 tablet by mouth every 4 (four) hours as needed for pain 40 tablet 5 Active oxyCODONE-acet aminophen (PERCOCET) 10-325 mg per tabletIndicati ons:Pain Take 1 tablet by mouth every 4 (four) hours as needed for pain 40 tablet 5 025 Discontin ued(Reord er) oxyCODONE-acet aminophen (PERCOCET) 10-325 mg per tabletIndicati ons:Pain Take 1 tablet by mouth every 4 (four) hours as needed for pain 40 tablet 5 025 Discontin ued(Reord er) Active Problems Problem Noted Date Diagnosed Date S/P total knee arthroplasty, left 09/19/2024 Arthrofibrosis of knee joint, left 09/18/2024 Aftercare following left knee joint replacement surgery 09/09/2024 Arthritis of left knee 08/27/2024 Primary osteoarthritis of left knee 07/12/2024 Orthopedic aftercare 11/30/2022 Acute medial meniscus tear of left knee 11/04/19 23 Breast pain 08/17/2022 08/17/2022 Calculus of kidney 08/17/2022 08/17/2022 Mass of breast 04/20/2022 Iron deficiency anemia 07/02/2021 3 Reactive thrombocytosis 07/02/2021 08/18/19 23 Arachnoid cyst 03/13/2018 Bleeding 10/19/2017 Overview (11/30/2022): Abnormal uterine and vaginal bleeding, unspecified;Recorded Elsewhere: No Location: [facility] Source: EHR Chronic: N Practice ID: [id number] Billable Time: 11:00:00 AM Obesity with body mass index 30 or greater 10/25 Overview (11/30/2022): Body mass index (BMI) 39.0-39.9, adult;Recorded Elsewhere: No Location: [facility] Source: EHR Chronic: N Practice ID: [id number] Billable Time: 01:30:00 PM Urinary tract infectious disease 07/18/2016 Overview (11/30/2022): Urinary tract infection, site not specified;Practice ID: 0001 Essential hypertension 02/04/2016 3 Morbid obesity due to excess calories 02/04/2016 08/17/2022 Leukocytosis 01/25/2016 Overview (11/30/2022): Elevated white blood cell count, unspecified;Recorded Elsewhere: No Location: [facility] Source: EHR Chronic: N Practice ID: [id number] Billable Time: 11:30:00 AM Encounters Date Type Department Care Team Description 11/12/2024 Telephone [facility] Orthopedics and Sports Medicine [address] [place] [phone] auth 11/07/2024 Orders Only [facility] Orthopedics and Sports Medicine [address] [place] [phone] Contreras Damon MD S/P total knee arthroplasty, left (Primary Dx); S/P surgical manipulation of knee joint 11/06/2024 9:59 AM CDT - 11/06/2024 11:59 PM CDT Hospital Encounter [facility] Diag Imaging [address] [place] [phone] S/P total knee arthroplasty, left Discharge Disposition: Discharge to home or self care 11/06/2024 9:45 AM CDT Office Visit [facility] Orthopedics and Sports Medicine [address] [place] [phone] Contreras Damon MD S/P total knee arthroplasty, left (Primary Dx) 10/28/2024 10:00 AM CDT Office Visit [facility] Orthopedics and Sports Medicine [address] [place] [phone] Contreras Damon MD S/P total knee arthroplasty, left (Primary Dx); S/P surgical manipulation of knee joint 10/09/2024 10:17 AM CDT - 10/09/2024 11:59 PM CDT Hospital Encounter [facility] Di[facility] Imaging [address] [place] [phone] S/P total knee arthroplasty, left Discharge Disposition: Discharge to home or self care 10/09/2024 10:15 AM CDT Office Visit [facility] Orthopedics and Sports Medicine [address] [place] [phone] Contreras Damon MD S/P total knee arthroplasty, left (Primary Dx); Arthrofibrosis of total knee replacement, subsequent encounter 10/02/2024 9:15 AM CDT Office Visit [facility] Orthopedics and Sports Medicine [address] [place] [phone] Contreras Damon MD S/P total knee arthroplasty, left (Primary Dx); Arthrofibrosis of total knee replacement, subsequent encounter 09/19/2024 3:30 PM CDT - 09/19/2024 4:20 PM CDT Surgery [facility] [place] [address] [place] [phone] Contreras Damon MD LEFT KNEE MANIPULATION 09/19/2024 2:04 PM CDT Anesthesia Event [facility] [place] [address] [place] [phone] Mala Mc MD Taylor-White, Carlotta A., NP 09/19/2024 1:04 PM CDT - 09/19/2024 4:08 PM CDT Hospital Encounter [facility] [place] [address] [place] [phone] Contreras Damon MD Arthrofibrosis of knee joint, left (Primary Dx); S/P total knee arthroplasty, left Discharge Disposition: Discharge to home or self care 09/18/2024 8:30 AM CDT Office Visit [facility] Orthopedics and Sports Medicine [address] [place] [phone] Contreras Damon MD S/P total knee arthroplasty, left (Primary Dx); Arthrofibrosis of total knee replacement, initial encounter 09/18/2024 8:19 AM CDT - 09/18/2024 11:59 PM CDT Hospital Encounter [facility] Diag Imaging [address] [place] [address] S/P total knee arthroplasty, left Discharge Disposition: Discharge to home or self care 09/18/2024 Telephone [facility] Orthopedics and Sports Medicine [address] [place] [phone] Contreras Damon MD 09/11/2024 9:30 AM CDT Office Visit [facility] Orthopedics and Sports Medicine [address] [place] [phone] Contreras Damon MD Aftercare following left knee joint replacement surgery (Primary Dx); S/P total knee arthroplasty, left, 08/27/2024 09/11/2024 9:20 AM CDT - 09/11/2024 11:59 PM CDT Hospital Encounter [facility] Diag Imaging [address] [place] [address] S/P total knee arthroplasty, left Discharge Disposition: Discharge to home or self care 09/04/2024 11:00 AM CDT Office Visit [facility] Orthopedics and Sports Medicine [address] [place] [phone] Contreras Damon MD S/P total knee arthroplasty, left, 08/27/2024 (Primary Dx) 09/04/2024 10:00 AM CDT - 09/04/2024 11:59 PM CDT Hospital Encounter [facility] Cardiac Testing [address] [place] [phone] Pain of left calf Discharge Disposition: Discharge to home or self care 09/03/2024 10:31 PM CDT - 09/04/2024 12:20 AM CDT Emergency [address] [phone] Pain of left calf (Primary Dx) Discharge Disposition: Discharge to home or self care 09/03/2024 Orders Only [facility] [address] [place] [phone] Jany Carpenter PA S/P total knee arthroplasty, left (Primary Dx) 08/28/2024 Orders Only [facility] Orthopedics and Sports Medicine [address] [place] [address] [place] [phone] Contreras Damon MD S/P total knee arthroplasty, left (Primary Dx) 08/28/2024 Orders Only [facility] Orthopedics and Sports Medicine [address] [place] [address] [place] [phone] Contreras Damon MD S/P total knee arthroplasty, left (Primary Dx) 08/27/2024 9:50 AM CDT - 08/27/2024 12:05 PM CDT Surgery [facility] [place] [address] [place] [phone] Contreras Damon MD LEFT TOTAL KNEE ARTHROPLASTY 08/27/2024 9:23 AM CDT Anesthesia Event [facility] [place] [address] [place] [phone] Channing Martin MD Taylor-White, Carlotta A., NP 08/27/2024 8:55 AM CDT Ancillary Procedure [facility] [place] [address] [place] [address] 08/27/2024 7:53 AM CDT - 08/28/2024 1:41 PM CDT Hospital Encounter [facility] [address] [address] Contreras Damon MD Primary osteoarthritis of left knee (Primary Dx); S/P total knee arthroplasty, left Discharge Disposition: Discharge to home, home health skilled care from Last 3 Months Immunizations Immunization Administration [...] NODE BIOPS Y / EXCISION UNDER CHIN TOTAL KNEE ARTHROPLASTY 08/27/2024 Left Medical History Medical History Date Comments Anemia GERD (gastroesophageal reflux disease) NO LONGER AN ISSUE AFTER BYPASS REVISION 04/2024 Urinary tract infection NO SYMPT OMS FOR PAST 6 MONTHS Anesthesia complication required oxygen in post op period, issue resolved once fully awake Anesthesia complication Head Ach e Obesity Abnormal menstrual cycle bleedin g greater than 1 week, being followed by obstetrician gynecologist Hiatal hernia NO FURTHER ISSUE S AFTER SURGERY. Left knee pain 10/2022 MAGED (iron deficiency anemia) manasa es iron supplements Hypertension Arthrofibrosis of knee joint, left 09/18/2024 Family History Medical History Relation Name Comments Bladder Cancer Father Aneurysm Mother Diabetes Sister Relation Name Status Comments Father Mother Sister Social History Tobacco Use Types Packs/Day Years Used Date Smoking Tobacco: Never Smokeless Tobacco: Never Tobacco Cessation:Counseling Given: Not Answered Alcohol Use Standard Drinks/Week Comments No 0 (1 standard drink = 0.6 oz pur e alcohol) [facility] Utilities Answer Date Recorded In the past 12 months has e [employer], gas, oil, or water [employer] threatened to shut off services in your [...] week 08/27/2024 How often do you attend [facility] or restoration services? 1 to 4 times per year 08/27/2024 Do you belong to any clubs o r organizations such as yarsani groups, unions, fraternal or athletic groups, or [...] any time in the past 12 m [facility], were you homeless or living in a snf (including now)? No 08/27/2024 Personal Safety Answer [...] Sign Reading Time Taken Comments Blood Pressure 126/73 09/19/2024 3:35 PM CDT Pulse 71 09/19/2024 3:35 PM CDT Temperature 36.4 C (97.6 F) 09/19/2024 3:05 PM CDT Respiratory Rate 16 09/19/2024 3:35 PM CDT Oxygen Saturation 100% 09/19/2024 3:35 PM CDT Inhaled Oxygen Concentration - - Weight 82.1 kg (181 lb) 11/06/2024 9:54 AM CDT Height 170.2 cm (5' 7) 11/06/2024 9:54 AM CDT Body Mass Index 28.35 11/06/2024 9:54 AM CDT Plan of Treatment Health Maintenance Due Date Last Done Comments Colon Cancer Screening-Colonoscopy 1975 Depression Screening 1975 Hepatitis C Screening 1975 Regular Well Visit/Exam 18-64 1994 Breast Cancer Screening-Mammogram 03/17/2023 03/17/2022, 02/11/2022, 12/18/2020 Covid-19 Vaccine ( season) 2024 04/02/2021, 07/12/2020, 06/22/2020 Influenza Vaccine (#1) 2024 8, 04/11/2017, 04/26/2016, Additional history exists DTaP/Tdap/Td Vaccine (3 - Td or Tdap) 04/28/2027 04/28/2017, 09/22/2011 Hepatitis B Screening Completed 05/01/2017 Pneumococcal vaccine <65 Aged Out No longer eligible based on patient's age to complete this topic Medical Devices Implanted Type Area Investigations Director Device Identifier Shelf Expiration Date Model / Serial / Lot [employer] Simplex P Radiopaque Full Dose Cement Bone Sterile 6191-1-010 - [id number] Implanted:Qty: 1 on 08/27/2024 by Contreras Damon MD at [facility] Bone Cement Left: Knee [employer] [id number] 01/24/2027 6191-1-001 / / [id number] [employer] Journey Od32 Mm Resurfacing Round Standard Component Patellar [id number] - [id number] Implanted:Qty: 1 on 08/27/2024 by Contreras Damon MD at [facility] Left: Knee [employer] [id number] 02/23/2034 [id number] / / [id number] [employer] Journey Ii 10mm Bicruciate Stabilized Left 5-6 Insert Articular [id number] - [id number] Implanted:Qty: 1 on 08/27/2024 by Contreras Damon MD at [facility] Left: Knee [employer] [id number] 09/12/2033 [id number] / / [id number] [employer] Journey Bicruciate Stabilized Left Knee 5 Baseplate Tibial [id number] - [id number] Implanted:Qty: 1 on 08/27/2024 by Contreras Damon MD at [facility] Left: Knee [employer] [id number] 04/07/2034 [id number] / / [id number] [employer] Journey Ii 70.5x65.7mm Bicruciate Stabilize Knee Left 6 Component [id number] - [id number] Implanted:Qty: 1 on 08/27/2024 by Contreras Damon MD at [facility] Left: Knee [employer] [id number] 02/10/2034 [id number] / / [id number] Procedures Procedure Name Priority Date/Time Associated Diagnosis Comments XR KNEE LEFT 3 VIEWS Schedule Routine, Read Routine (OP Routine) 11/06/2024 10:08 AM CDT S/P total knee arthroplasty, left XR KNEE LEFT 3 VIEWS Schedule Routine, Read Routine (OP Routine) 10/09/2024 10:24 AM CDT S/P total knee arthroplasty, left MANIPULATION KNEE 09/19/2024 2:0 4 PM CDT Arthrofibrosis of knee joint, left Case Notes L knee LEANDRO XR KNEE LEFT 3 VIEWS Schedule Routine, Read Routine (OP Routine) 09/18/2024 8:27 AM CDT S/P total knee arthroplasty, left XR KNEE LEFT 1 OR 2 VIEWS Schedule Routine, Read Routine (OP Routine) 09/11/2024 9:29 AM CDT S/P total knee arthroplasty, left US VEIN DUPLEX LOWER EXTREMITY LEFT LIMITED Urgent 09/04/2024 11:19 AM CDT Pain of left calf EGFR STAT 09/03/2024 9:35 PM CDT DIFFERENTIAL AUTO STAT 09/03/2024 9:3 5 PM CDT APTT STAT 09/03/2024 9:35 PM CDT PROTIME-INR STAT 09/03/2024 9:35 PM CDT D-DIMER, QUANTITATIVE STAT 09/03/2024 9:35 PM CDT COMPREHENSIVE METABOLIC PANEL STAT 09/03/2024 9:35 PM CDT CBC WITH AUTO DIFFERENTIAL STAT 09/03/2024 9:35 PM CDT EGFR Routine 08/28/2024 3:34 AM CDT CBC WITHOUT DIFFERENTIAL Routine 08/28/2024 3:34 AM CDT BASIC METABOLIC PANEL Routine 08/28/2024 3:34 AM CDT POCT GLUCOSE DEVICE Routine 08/27/2024 1 :19 PM CDT XR KNEE LEFT 1 OR 2 VIEWS ED Urgent/IP Urgent 08/27/2024 11:43 AM CDT MS AN PROCEDURE PLACEHOLDER Routine 08/27/2024 9:39 AM CDT MS AN ELECTIVE SUPRAGLOTTIC AIRWAY Routine 08/27/2024 9:39 AM CDT ARTHROPLASTY TOTAL KNEE 08/27/2024 9:23 AM CDT Primary osteoarthritis of left knee Case Notes LTKA MS AN PROCEDURE PLACEHOLDER Routine 08/27/2024 9:04 AM CDT POCUS INJ FEMORAL NERVE IP Routine 08/27/2024 8:51 AM CDT B ABO / RH CONFIRMATION TESTING STAT 08/27/2024 8:28 AM CDT from Last 3 Months Results * XR Knee Left 3 Views (11/06/2024 10:08 AM CDT) Anatomical Region Laterality Modality Lower Extremities, Knee Left Computed Radiography 11/13/2024 2:20 PM CDT Narrative 11/13/2024 2:21 PM CDT EXAM DESCRIPTION: 1. XR KNEE LEFT 3 VIEWS REASON FOR STUDY: pain General knee pain and swelling since total knee replacement 08-27-24 FINDINGS: Three views submitted with comparison 10/09/2024. Left total knee arthroplasty is in near anatomic alignment. No acute fracture. Moderate-sized knee effusion. IMPRESSION: 1. Left total knee arthroplasty in near anatomic alignment. 2. Moderate-sized left knee effusion. THIS IS AN ELECTRONICALLY VERIFIED FINAL REPORT 11/13/2024 2:21 PM - Electronically signed by Clyde Montez M.D. T: Report ID: [id number] Reading Location: [id number] Procedure Note Clyde Montez MD - 11/13/2024 EXAM DESCRIPTION: 1. XR KNEE LEFT 3 VIEWS REASON FOR STUDY: pain General knee pain and swelling since total knee replacement 08-27-24 FINDINGS: Three views submitted with comparison 10/09/2024. Left total knee arthroplasty is in near anatomic alignment. No acute fracture. Moderate-sized knee effusion. IMPRESSION: 1. Left total knee arthroplasty in near anatomic alignment. 2. Moderate-sized left knee effusion. THIS IS AN ELECTRONICALLY VERIFIED FINAL REPORT 11/13/2024 2:21 PM - Electronically signed by Clyde Montez M.D. T: Report ID: [id number] Reading Location: [id number] Contreras Damon MD IMG XR PROCEDURES Virid[facility] l Result * XR Knee Left 3 Views (10/09/2024 10:24 AM CDT) Anatomical Region Laterality Modality Lower Extremities, Knee Left Computed Radiography 10/10/2024 6:17 PM CDT Narrative 10/10/2024 6:18 PM CDT EXAM DESCRIPTION: 1. XR KNEE LEFT 3 VIEWS REASON FOR STUDY: pain General knee pain since total knee replacement 08-27-24 FINDINGS: Three views submitted with comparison 09/18/2024. Left total knee arthroplasty is in near anatomic alignment. No acute fracture. Large knee effusion is present. IMPRESSION: 1. Left total knee arthroplasty in near anatomic alignment. 2. Large left knee effusion. THIS IS AN ELECTRONICALLY VERIFIED FINAL REPORT 10/10/2024 6:18 PM - Electronically signed by Clyde Montez M.D. T: Report ID: [id number] Reading Location: [id number] Procedure Note Clyde Montez MD - 10/10/2024 EXAM DESCRIPTION: 1. XR KNEE LEFT 3 VIEWS REASON FOR STUDY: pain General knee pain since total knee replacement 08-27-24 FINDINGS: Three views submitted with comparison 09/18/2024. Left total knee arthroplasty is in near anatomic alignment. No acute fracture. Large knee effusion is present. IMPRESSION: 1. Left total knee arthroplasty in near anatomic alignment. 2. Large left knee effusion. THIS IS AN ELECTRONICALLY VERIFIED FINAL REPORT 10/10/2024 6:18 PM - Electronically signed by Clyde Montez M.D. T: Report ID: [id number] Reading Location: [id number] Contreras Damon MD IMG XR PROCEDURES Viridiana l Result * XR Knee Left 3 Views (09/18/2024 8:27 AM CDT) Anatomical Region Laterality Modality Lower Extremities, Knee Left Computed Radiography 09/22/2024 10:1 7 AM CDT Narrative 09/22/2024 10:20 AM CDT EXAM DESCRIPTION: 1. XR KNEE LEFT 3 VIEWS REASON FOR STUDY: pain Pain and swelling since LT TKR 08/27/24 FINDINGS: Three views submitted with comparison 09/11/2024. Left total knee arthroplasty is in near anatomic alignment. No acute fracture. Small knee effusion is present. IMPRESSION: 1. Left total knee arthroplasty in near anatomic alignment. THIS IS AN ELECTRONICALLY VERIFIED FINAL REPORT 09/22/2024 10:20 AM - Electronically signed by Clyde Montez M.D. T: Report ID: [id number] Reading Location: [id number] Procedure Note Clyde Montez MD - 09/22/2024 EXAM DESCRIPTION: 1. XR KNEE LEFT 3 VIEWS REASON FOR STUDY: pain Pain and swelling since LT TKR 08/27/24 FINDINGS: Three views submitted with comparison 09/11/2024. Left total knee arthroplasty is in near anatomic alignment. No acute fracture. Small knee effusion is present. IMPRESSION: 1. Left total knee arthroplasty in near anatomic alignment. THIS IS AN ELECTRONICALLY VERIFIED FINAL REPORT 09/22/2024 10:20 AM - Electronically signed by Clyde Montez M.D. T: Report ID: [id number] Reading Location: [place] [id number] Contreras Damon MD IMG XR PROCEDURES Vir[facility] l Result * XR Knee Left 1 or 2 Views (09/11/2024 9:29 AM CDT) Anatomical Region Laterality Modality Lower Extremities, Knee Left Computed Radiography 09/11/2024 2:57 PM CDT Narrative 09/11/2024 3:05 PM CDT EXAM DESCRIPTION: 1. XR KNEE LEFT 1 OR 2 VIEWS REASON FOR STUDY: pain General knee pain since total knee replacement 08-27-24 FINDINGS: Two views submitted with comparison 08/27/2024. Left total knee arthroplasty is in near anatomic alignment. No acute fracture or evidence of loosening. Moderate-sized knee effusion and mild soft tissue swelling. IMPRESSION: 1. Left total knee arthroplasty in near anatomic alignment. 2. Moderate-sized left knee effusion. THIS IS AN ELECTRONICALLY VERIFIED FINAL REPORT 09/11/2024 3:05 PM - Electronically signed by Clyde Montez M.D. T: Report ID: [id number] Reading Location: [id number] Procedure Note Clyde Montez MD - 09/11/2024 EXAM DESCRIPTION: 1. XR KNEE LEFT 1 OR 2 VIEWS REASON FOR STUDY: pain General knee pain since total knee replacement 08-27-24 FINDINGS: Two views submitted with comparison 08/27/2024. Left total knee arthroplasty is in near anatomic alignment. No acutefracture or evidence of loosening. Moderate-sized knee effusion and mild softtissue swelling. IMPRESSION: 1. Left total knee arthroplasty in near anatomic alignment. 2. Moderate-sized left knee effusion. THIS IS AN ELECTRONICALLY VERIFIED FINAL REPORT 09/11/2024 3:05 PM - Electronically signed by Clyde Montez M.D. T: Report ID: [id number] Reading Location: [id number] us Jany PACKER IMG XR PROCEDURES Final R esult * US VEIN DUPLEX LOWER EXTREMITY LEFT LIMITED, UNILATERAL (09/04/2024 11:19 AM CDT) Anatomical Region Laterality Modality Vascular Left Ultrasound 09/04/2024 10:1 9 AM CDT Narrative 09/05/2024 8:40 AM CDT Lower Extremity Venous Report Patient Name: SHERI RIGGNIS L : 1975 (49y 6m) Gender: F Study Date: 09/04/2024 10:19:21 AM Photogeologist: JB Wan Order Provider: HERNESTO MARTINEZ Quality: Adequate Ref Provider: HERNESTO MARTINEZ PROCEDURES: Vascular Report: A non-invasive vascular imaging study of the left lower extremity veins was performed using B-mode ultrasound, color flow, and spectral Doppler. INDICATIONS: M79.662 Pain in left lower leg. HISTORY: Recent left knee replacement. COMPARISONS: No prior exams. FINDINGS: Left: Negative for deep and superficial vein thrombosis in the left lower extremity. Normal compressibility and color filling, spontaneous and phasic flow, and response to distal augmentation is demonstrated in the left common femoral vein, saphenofemoral junction, proximal femoral vein, mid femoral vein, distal femoral vein, profunda vein, popliteal vein, posterior tibial veins, peroneal veins and soleal veins. For comparisons purposes, the right common femoral vein was interrogated. The common femoral vein Doppler flow was phasic, spontaneous and responded normally to distal augmentation. Provider Notification: Hernesto Martinez PA. CONCLUSIONS: 1. There is no evidence of deep vein thrombosis in the left lower extremity. ATTESTATION: I have reviewed and interpreted the pertinent images and measurements of this study. I attest to the conclusions in the final report that is provided above. Electronically Signed By: Waqas Gaitan MD 09/05/2024 8:39:49 AM CDT Procedure Note Waqas Gaitan MD - 09/05/2024 Lower Extremity Venous Report Patient Name: SHERI RIGGINS L : 1975 (49y 6m) Gender: F Study Date: 09/04/2024 10:19:21 AM Photogeologist: JB Wan Order Provider: HERNESTO MARTINEZ Quality: Adequate Ref Provider: HERNESTO MARTINEZ PROCEDURES: Vascular Report: A non-invasive vascular imaging study of the left lowerextremity veins was performed using B-mode ultrasound, color flow, and spectral Doppler. INDICATIONS: M79.662 Pain in left lower leg. HISTORY: Recent left knee replacement. COMPARISONS: No prior exams. FINDINGS: Left: Negative for deep and superficial vein thrombosis in the left lowerextremity. Normal compressibility and color filling, spontaneous and phasic flow, andresponse to distal augmentation is demonstrated in the left common femoral vein,saphenofemoral junction, proximal femoral vein, mid femoral vein, distal femoral vein,profunda vein, popliteal vein, posterior tibial veins, peroneal veins and soleal veins.For comparisons purposes, the right common femoral vein was interrogated. The commonfemoral vein Doppler flow was phasic, spontaneous and responded normally to distalaugmentation. Provider Notification: Hernesto Martinez PA. CONCLUSIONS: 1. There is no evidence of deep vein thrombosis in the left lowerextremity. ATTESTATION: I have reviewed and interpreted the pertinent images and measurements ofthis study. I attest to the conclusions in the final report that is provided above. Electronically Signed By: Waqas Gaitan MD 09/05/2024 8:39:49 AM CDT Hernesto PACKER G US PROCEDURES Final Resu lt * eGFR (09/03/2024 9:35 PM CDT) [facility] eGFR >90 >=60 mL/min/1. 73 m2 Comment: [...] interpretive data was last reviewed 2021. Blood 09/03/2024 9:35 PM CDT 09/03/2024 9:39 PM CDT Malgorzata PACKER LAB BLOOD ORDERABLES Final Result [facility] [address] [facility] Department [place] [address] * (ABNORMAL) Differential, auto (09/03/2024 9:35 PM CDT) [facility] Neutrophil abs 7.45(H) 1.50 - 6.50 K/cumm Imm gran abs 0.08 0.00 - 0.10 K/cumm [facility] Lymphocyte abs 2.60 0.80 - 3.30 K/cumm [facility] Monocyte abs 1.00(H) 0.20 - 0.80 K/cumm [facility] Eosinophil abs 0.44 0.00 - 0.50 K/cumm [facility] Basophil abs 0.06 0.00 - 0.10 K/cumm [facility] Neutrophil pct 64.0 % [facility] Comment: Interpretive Data Percent cell count reference ranges are not reported, since discordance with absolute values may lead to misinterpretation of CBC data. Current Interpretive Data was last revised on 2017. Imm gran pct 0.7 % [facility] Comment: Interpretive Data Percent cell count reference ranges are not reported, since discordance with absolute values may lead to misinterpretation of CBC data. Current Interpretive Data was last revised on 2017. Lymphocyte pct 22.4 % [facility] Comment: Interpretive Data Percent cell count reference ranges are not reported, since discordance with absolute values may lead to misinterpretation of CBC data. Current Interpretive Data was last revised on 2017. Monocyte pct 8.6 % [facility] Comment: Interpretive Data Percent cell count reference ranges are not reported, since discordance with absolute values may lead to misinterpretation of CBC data. Current Interpretive Data was last revised on 2017. Eosinophil pct 3.8 % [facility] Comment: Interpretive Data Percent cell count reference ranges are not reported, since discordance with absolute values may lead to misinterpretation of CBC data. Current Interpretive Data was last revised on 2017. Basophil pct 0.5 % [facility] Comment: Interpretive Data Percent cell count reference ranges are not reported, since discordance with absolute values may lead to misinterpretation of CBC data. Current Interpretive Data was last revised on 2017. Blood 09/03/2024 9:35 PM CDT 09/03/2024 9:39 PM CDT Malgorzata PACKER LAB BLOOD ORDERABLES Final Result [facility] [address] [facility] Department [place] [address] * (ABNORMAL) CBC with auto differential (09/03/2024 9:35 PM CDT) WBC 11.63(H) 3.80 - 9.90 K/cumm Hgb 12.6 11.9 - 15.5 g/dL [facility] Hct 38.2 35.6 - 45.5 % [facility] Plt 484(H) 150 - 400 K/cumm [facility] MPV 9.1 9.1 - 12.3 fL [facility] RBC 4.42 3.90 - 5.20 M/cumm [facility] MCV 86.4 81.3 - 96.4 fL [facility] MCH 28.5 27.1 - 33.3 pg [facility] MCHC 33.0 32.3 - 35.7 g/dL [facility] RDW CV 13.9 11.1 - 14.9 % [facility] RDW SD 44.6 35.7 - 48.1 fL [facility] NRBC abs 0.00 0.00 - 0.01 K/cumm [facility] Blood 09/03/2024 9:35 PM CDT 09/03/2024 9:39 PM CDT [facility] BLOOD ORDERABLES Final Result Performing Organization Address [facility] de Phone Number [address] [place] [address] * aPTT (09/03/2024 9:35 PM CDT) aPTT 28 22 - 37 sec Comment: Interpretive data aPTT test has not been evaluated for monitoring heparin therapy. The anti-Xa is the preferred test. Current interpretive data was last revised on 2019. Blood 09/03/2024 9:35 PM CDT 09/03/2024 9:39 PM CDT [facility] [place] LAB BLOOD ORDERABLES Final Result Performing Organization Address [facility] de Phone Number [address] [place] [address] * (ABNORMAL) Protime-INR (09/03/2024 9:35 PM CDT) PT 14.8(H) 12.0 - 14.6 sec Comment:Ref Range High INR 1.2 0.9 - 1.2 [facility] Comment: Ref Range High Interpretive data Oral anticoagulant therapeutic ranges: Venous thromboembolism prophylaxis or treatment: 2.0-3.0 CARDIOLOGY Standard range: 2.0-3.0 High-intensity range: 2.5-3.5 Refer to indication-specific guidelines for appropriate target ranges for prosthetic heart valve replacement. Current interpretive data was last revised on 2019. Blood 09/03/2024 9:35 PM CDT 09/03/2024 9:39 PM CDT Malgorzata PACKER LAB BLOOD ORDERABLES Final Result Performing Organization Address [facility] de Phone Number THANH [address] [place] [address] * (ABNORMAL) D-dimer, quantitative (09/03/2024 9:35 PM CDT) Pathologist [facility] D-Dimer 1,500(H) <=499 ng/mL FEU Comment: Interpretive data FDA approved the D-dimer, in conjunction with a low or moderate pretest probability score, to exclude venous thromboembolic events (VTE) (PE and DVT) in outpatients when the D-dimer result is < 500 ng/ml FEU. Evidence supports using an age-adjusted D-dimer cut-off for outpatients older than 50 (age x 10) to improve specificity without sacrificing sensitivity. Example: age 68, VTE cut-off 680 ng/ml FEU. References; Eugenio HT et al. Brit Med J. 2013;346:f2492. Jesus et al. Annals Int Med. 2015;163:701-11. Current interpretive data was last revised on 2019. Blood 09/03/2024 9:35 PM CDT 09/03/2024 9:39 PM CDT Malgorzata PACKER LAB BLOOD ORDERABLES Final Result Performing Organization Address [facility] de Phone Number THANH [address] [place] [place] [address] * (ABNORMAL) Comprehensive metabolic panel (09/03/2024 9:35 PM CDT) Pathologist [facility] Sodium 135 135 - 145 mmol/L Potassium, pl 4.5 3.3 - 4.9 mmol/L [facility] Chloride 102 97 - 110 mmol/L [facility] CO2 21(L) 22 - 32 mmol/L [facility] Anion gap 12 2 - 15 mmol/L [facility] BUN 16 6 - 25 mg/dL [facility] Creatinine 0.63 0.60 - 1.10 mg/dL [facility] Glucose 100 70 - 199 mg/dL [facility] Comment: Interpretive Data Fasting [...] interpretive data was last revised 2022. Calcium 9.2 8.5 - 10.3 mg/dL [facility] Bilirubin, total 0.6 0.1 - 1.2 mg/dL [facility] Protein, pl 7.3 6.5 - 8.5 g/dL [facility] Albumin 4.1 3.5 - 5.0 g/dL [facility] Alk phos 114 40 - 130 Units/L [facility] ALT 42 7 - 45 Units/L [facility] AST 40 10 - 45 Units/L [facility] Blood 09/03/2024 9:35 PM CDT 09/03/2024 9:39 PM CDT Malgorzata PACKER LAB BLOOD ORDERABLES Final Result [facility] [address] [facility] Department [place] [address] * eGFR (08/28/2024 3:34 AM CDT) eGFR >90 >=60 mL/min/1. 73 [...] of Race in Diagnosing Kidney Disease, JASN 202). The CKD-EPI equation should not be used for patients with unstable renal function and has not been validated in children and those over 70. Current interpretive data was last reviewed 2021. Blood 08/28/2024 3:34 AM CDT 08/28/2024 4:18 AM CDT us Jany PACKER LAB BLOOD ORDERABLES Viridiana macedo Result [place] [id number] [facility] Department [place] [address] * (ABNORMAL) CBC without differential (08/28/2024 3:34 AM CDT) WBC 14.18(H) 3.80 - 9.90 K/cumm Hgb 11.9 11.9 - 15.5 g/dL [facility] Hct 36.4 35.6 - 45.5 % [facility] Plt 276 150 - 400 K/cumm [facility] MPV 10.2 9.1 - 12.3 fL [facility] RBC 4.04 3.90 - 5.20 M/cumm [facility] MCV 90.1 81.3 - 96.4 fL [facility] MCH 29.5 27.1 - 33.3 pg [facility] MCHC 32.7 32.3 - 35.7 g/dL [facility] RDW CV 13.9 11.1 - 14.9 % [facility] RDW SD 45.8 35.7 - 48.1 fL [facility] NRBC abs 0.00 0.00 - 0.01 K/cumm [facility] Blood 08/28/2024 3:34 AM CDT 08/28/2024 4:18 AM CDT aJny PACKER LAB BLOOD ORDERABLES Viridiana l Result [facility] [place] [address] * (ABNORMAL) Basic metabolic panel (08/28/2024 3:34 AM CDT) [facility] Sodium 140 135 - 145 mmol/L Potassium, pl 4.0 3.3 - 4.9 mmol/L [facility] Chloride 108 97 - 110 mmol/L [facility] CO2 23 22 - 32 mmol/L [facility] Anion gap 9 2 - 15 mmol/L [facility] BUN 8 6 - 25 mg/dL [facility] Creatinine 0.57(L) 0.60 - 1.10 mg/dL [facility] Glucose 92 70 - 199 mg/dL [facility] Comment: Interpretive Data Fasting [...] classification and Diagnosis of Diabetes Diabetes Care 2021; 46: S19-S40. Current interpretive data was last revised 2022. Calcium 8.5 8.5 - 10.3 mg/dL [facility] Blood 08/28/2024 3:34 AM CDT 08/28/2024 4:18 AM CDT Jany PACKER LAB BLOOD ORDERABLES Viridiana l Result [facility] [address] [place] [address] * POCT glucose (08/27/2024 1:19 PM CDT) Glucose, POC 92 70 - 199 mg/dL Blood 08/27/2024 1:19 PM CDT 08/27/2024 1:19 PM CDT us Contreras Damon MD LAB POCT ORDERABLES - DEVICE Final Result [facility] [address] [facility] Department [place] [address] * X-ray knee left 1 or 2 views (08/27/2024 11:43 AM CDT) Anatomical Region Laterality Modality Lower Extremities, Knee Left Computed Radiography 08/27/2024 2:27 PM CDT Narrative 08/27/2024 2:28 PM CDT EXAM DESCRIPTION: XR KNEE LEFT 1 OR 2 VIEWS REASON FOR STUDY: Knee replaced, post op DVT screen, s/pltk S/P total knee replacement in OR today TECHNIQUE: 2 radiographic view(s) of the left knee . COMPARISON: Left knee radiographs 08/13/2024 FINDINGS: There is knee arthroplasty hardware in near anatomic alignment. No fracture is seen. There is soft tissue gas and knee joint effusion. There are anterior skin mona. IMPRESSION: Expected postoperative changes. THIS IS AN ELECTRONICALLY VERIFIED FINAL REPORT 08/27/2024 2:28 PM - Electronically signed by Fabien Carter M.D., JR T: Report ID: [id number] Reading Location: [id number] Procedure Note Fabien Carter MD - 08/27/2024 EXAM DESCRIPTION: XR KNEE LEFT 1 OR 2 VIEWS REASON FOR STUDY: Knee replaced, post op DVT screen, s/pltk S/P total knee replacement in OR today TECHNIQUE: 2 radiographic view(s) of the left knee . COMPARISON: Left knee radiographs 08/13/2024 FINDINGS: There is knee arthroplasty hardware in near anatomic alignment. Nofracture is seen. There is soft tissue gas and knee joint effusion. There areanterior skin mona. IMPRESSION: Expected postoperative changes. THIS IS AN ELECTRONICALLY VERIFIED FINAL REPORT 08/27/2024 2:28 PM - Electronically signed by Fabien Carter M.D., JR T: Report ID: [id number] Reading Location: [place] [address] us Contreras Damon MD IMG XR PROCEDURES Viridiana l Result * MS AN ELECTIVE SUPRAGLOTTIC AIRWAY, MS AN PROCEDURE PLACEHOLDER (08/27/2024 9:39 AM CDT) Narrative Monica Hay CRNA - 08/27/2024 9:39 AM CDT Monica Hay CRNA 08/27/2024 9:40 AM Airway Patient location: OR Urgency: elective Indications for airway management: anesthesia Difficult airway: no Staff: Supervising provider: Channing Martin MD Placed by: SALES CONTRACT ADMINISTRATOR: Monica Hay CRNA Emergent airway documentation: Risks and benefits discussed: yes Consent obtained: yes Consent given by: patient Airway prep: Preoxygenated: yes Patient position: sniffing Mask difficulty assessment: 0 - not attempted Spontaneous ventilation during airway: absent Sedation level during airway: deep Final airway details: Final airway type: supraglottic airway Final supraglottic airway: IGel SGA size: 4 Number of attempts: 1 Planned trial extubation: yes us Channing Martin MD ANESTHESIA ORDERABLES Final R esult * MS AN PROCEDURE PLACEHOLDER (08/27/2024 9:04 AM CDT) Narrative Channing Martin MD - 08/27/2024 9:04 AM CDT Channing Martin MD 08/27/2024 9:05 AM Peripheral Block Patient location during procedure: pre-op holding Start time: 08/27/2024 8:58 AM End time: 08/27/2024 8:51 AM Reason for block: post-op pain management per surgeon request Ultrasound image in chart or stored: yes Block type: single shot Laterality: left Block type: femoral nerve block (distal mid thigh ) Staff: Placed by: Anesthesiologist: Channing Martin MD Procedure prep: Preprocedure checklist: patient identified, procedure contraindications assessed, site marked, procedure consent, surgical consent, IV checked, risks, benefits and alternatives discussed, monitors and equipment checked and timeout performed Patient position: supine Procedure performed while patient: sedate with meaningful contact Monitoring: ECG, oximetry and blood pressure Supplemental O2: nasal cannula Prep solution: chlorhexidine/alcohol PPE: provider hat/mask, sterile gloves and sterile probe cover and gel Peripheral nerve block: Technique: ultrasound guided Needle type: insulated, short-bevel and echogenic Needle gauge: 20 G Needle length: 100 mm Injection assessment: injection made incrementally with constant monitoring, negative aspiration for heme, no paresthesias noted, normal resistance to injection, see flowsheet for medication details and local visualized surrounding nerve on ultrasound Assessment: Block success: full evaluation pending Events: patient tolerated procedure well with no complications Additional comments: 25 cc 0.5% marcaine with epi 1:300k Channing Martin MD ANESTHESIA ORDERABLES Final R esult * POCUS INJ FEMORAL NERVE (08/27/2024 8:51 AM CDT) Narrative [id number] - 08/27/2024 8:51 AM CDT This procedure was performed and interpreted by the provider. Please refer to the provider's procedure/OR operative note for results. Contreras Damon MD POCUS ORDERABLES Final Result Performing Organization Address [facility] Co de Phone Number [email or web address] * ABO / Rh Confirmation Testing (08/27/2024 8:28 AM CDT) ABO/Rh Confirmation A Positive [facility] Blood 08/27/2024 8:28 AM CDT 08/27/2024 8:32 AM CDT Contreras Damon MD LAB BLOOD ORDERABLES F inal Result [facility] [address] [facility] Department [place] [address] [facility] from Last 3 Months Insurance [employer] [facility] [place] [id number] [employer] [facility] [place] [phone] [employer] Advance Directives For more information, please contact: [phone] * Full Code (Latest Code Status on File) Date Activated Date Inactivated Comments 08/27/2024 2:15 PM 08/28/2024 5:58 PM Care Teams Awning Craftsman Relationship Specialty Start Date End Date Leonides Broderick MD [address] [place] [address] PCP - General Family Medicine 07/24/24 Jany Carpenter PA [address] [place] [address] Physician Mixer Crane Operator Orthopedic Surgery 11/17/22
--- OUTSIDE RECORDS SUMMARY | 2024-11-27 16:06 | XMS_ITS | Encounter Summary ---
Author Organization [facility] Address [address] [place] [address] Care Team Providers Care Coach Professional Athletes Name Role Phone Leonides Broderick MD Primary Care Provider [phone] Encounter Details Date Type Department Care Team (Late st Contact Info) Description 11/13/2024 Results Follow-Up [facility] [address] [facility] [address] [place] [address] Adrienne Sarah, SKIN FITTER-INTERIOR PLANT CARETAKER [address] [facility] [address] [place] [address] Social History Tobacco Use Types Packs/Day Years Used Date Smoking Tobacco: Never Passive Smoke Exposure: Past Smokeless Tobacco: Never Alcohol Use Standard Drinks/Week Comments Not Currently [...] and heating? Not hard at all 05/08/2024 [facility] [place] of Occupat ional Health - Occupational Stress [...] any time in the past 12 m [facility], were you homeless or living in a custodial (including now)? No 05/08/2024 Comments No Sex and Gender Information Value Date Recorded Sex Assigned at Not on file Legal Sex Female 10:27 AM CDT Gender Identity Not on file Sexual Orientation Not on file documented as of this encounter Functional Status * Is person deaf or have serious hearing difficulty? Answer Date of Assessment Author No 05/08/2024 12:39 PM Dana Aguirre RN * Is person blind or have serious difficulty seeing? Answer Date of Assessment Author No 05/08/2024 12:39 PM Dana Aguirre RN * Does person have serious difficulty walking/climbing stairs? Answer Date of Assessment Author No 05/08/2024 12:39 PM Dana Aguirre RN * Does person have difficulty dressing/bathing? Answer Date of Assessment Author No 05/08/2024 12:39 PM Dana Aguirre RN * Does person have difficulty doing errands alone? Answer Date of Assessment Author No 05/08/2024 12:39 PM Dana Aguirre RN documented as of this encounter Mental Status * Does person have difficulty concentrating/remembering/making decisions? Answer Entry Date Author No 05/08/2024 12:39 PM RUBBER TESTER Dana Curran RN documented in this encounter Plan of Treatment Upcoming Encounters Date Type Department Care Team (Late st Contact Info) Description 05/08/2025 10:00 AM RUBBER TESTER Office Visit [facility] [address] [facility] [address] [place] [address] Adrienne Sarah, SKIN FITTER-INTERIOR PLANT CARETAKER [address] [facility] [address] [place] [address] [place] [address] documented as of this encounter Visit Diagnoses Not on filedocumented in this encounter Care Teams Coach Professional Athletes Relationship Specialty Start Date End Date Leonides Broderick MD [address] [place] [address] PCP - General Family Medicine 12/02/14 documented as of this encounter
--- OUTSIDE RECORDS SUMMARY | 2024-11-27 16:07 | XMS_ITS | Clinical Summary ---
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 Gender Identity Not on file Sexual Orientation Not on file Plan of Treatment Health Maintenance Due Date Last Done Comments Hepatitis C Virus (HCV) Screening 1976 Pap Smear 1997 Cervical Cancer Screening (CCS) 2006 HPV/Cotest 2006 Hepatitis B Immunization (2 of 3 - 19+ 3-dose series) 05/29/2017 05/01/2017 Cologuard 2021 Colonoscopy 2021 Colorectal Cancer Screening 2021 Immunochemical Fecal Occult Blood 2021 SARS-COV-2 Immunization ( season) 2023 Influenza Immunization (#1) 11/25/202403/27, 04/25/2016, 01/13/2015 Respiratory Syncytial Virus (RSV) Immunization (Adult) (1 - 1-dose 75+ series) 2051 DTaP/Tdap/Td Immunization Discontinued 2017, 09/22/2011 TdaP Immunization Completed 04/28/2017, 09/22/2011 Human Papillomavirus (HPV) Immunization Aged Out No longer eligible based on patient's age to complete this topic Meningococcal Immunization (ACWY) Aged Out No longer eligible based on patient's age to complete this topic Pneumococcal Immunization Combined Aged Out No longer eligible based on patient's age to complete this topic Rotavirus Immunization Aged Out No lo nger eligible based on patient's age to complete this topic
--- OUTSIDE RECORDS SUMMARY | 2024-11-27 16:07 | XMS_ITS | Clinical Summary ---
Author Organization [facility] Address [address] [place] [id number] Care Team Providers Care Photoengraving Photographer Name Role Phone Leonides Broderick MD Primary Care Provider [phone] Allergies No known active allergies Medications No known medications Encounters Date Type Department Care Team Description 11/18/2024 9:10 AM CDT - 11/18/2024 11:59 PM CDT Hospital Encounter [facility] [address] [place] [address] Contreras Lockhart MD Discharge Disposition: Home or Self Care (Routine Discharge) 11/18/2024 Travel from Last 3 Months Social History Tobacco Use Types Packs/Day Years Used Date Smoking Tobacco: Never Smokeless Tobacco: Never Alcohol Use Standard Drinks/Week Comments Never 0 (1 standard drink = 0.6 oz pur e alcohol) AUDIT-C Answer Date Recorded Frequency of Alcohol Consumption Never 10/04/2019 Average Number of Drinks Not on file 020 Frequency of Binge Drinking Not on file 09/24 Comments No Sex and Gender Information Value Date Recorded Sex Assigned at Not on file Legal Sex Female 9:36 PM CDT Gender Identity Not on file Sexual Orientation Not on file Last Filed Vital Signs Vital Sign Reading Time Taken Comments Blood Pressure 135/70 10/04/2019 6:13 PM CDT Pulse 83 10/04/2019 6:13 PM CDT Temperature 36.3 C (97.3 F) 10/04/2019 6:13 PM CDT Respiratory Rate 18 10/04/2019 6:13 PM CDT Oxygen Saturation 98% 10/04/2019 6:13 PM CDT Inhaled Oxygen Concentration - - Weight 91.2 kg (201 lb) 10/04/2019 6:13 PM CDT Height 170.2 cm (5' 7) 10/04/2019 6:13 PM CDT Body Mass Index 31.48 10/04/2019 6:13 PM CDT Plan of Treatment Health Maintenance Due Date Last Done Comments Cervical Cancer Screening Pa p Smear (Age 30 to 64) Every 3 Years 1976 Colorectal Cancer Screening Colonoscopy (10 Years) 1976 Annual Physical 1979 Hepatitis C 1994 Cervical Cancer Screening Pa p with HPV Testing (Age 30 to 64) Every 5 Years 2006 Cervical Cancer Screening wi th HPV 2006 Mammogram Screening 2016 Hepatitis B Vaccines (2 of 3 - 19+ 3-dose series) 05/29/2017 05/01/2017 COVID-19 Vaccine ( - 2024-2 6 season) 2024 04/02/2021, 07/12/2020, 06/22/2020 DTaP, Tdap and Td Vaccines ( 3 - Td or Tdap) 04/28/2027 04/28/2017, 09/22/2011 Meningococcal B Vaccine Aged Out No l onger eligible based on patient's age to complete this topic Meningococcal Vaccine Aged Out No minda starr eligible based on patient's age to complete this topic Pneumococcal Vaccine: Pediatrics (0 to 5 Years) and At-Risk Patients (6 to 49 Years) Aged Out No longer eligible b ased on patient's age to complete this topic RSV Immunizations Under 20 Months Aged Out No longer eligible b ased on patient's age to complete this topic Procedures Procedure Name Priority Date/Time Associated Diagnosis Comments CT KNEE LT WO CON Routine 11/18/2024 9:3 8 AM CDT S/P total knee arthroplasty, left S/P surgical manipulation of knee joint from Last 3 Months Results * CT KNEE LT WO CON (11/18/2024 9:38 AM CDT) Anatomical Region Laterality Modality Knee Computed Tomogra phy 11/26/2024 12:0 0 PM CDT Impressions 11/26/2024 12:14 PM CDT =====IMPRESSION:===== 1. Unremarkable left total knee arthroplasty. No evidence of loosening, subsidence or migration. 2. Small to moderate joint effusion with moderate synovial thickening of the suprapatellar recess suggesting synovitis. Ordered By: CONTRERAS LOCKHART Interpreted By: Adilson Gould MD, 11/26/2024 12:00 PM Narrative 11/26/2024 12:14 PM CDT [place] [id number] EXAMINATION: CT left knee without contrast. EXAM DATE/TIME: 11/18/2024 9:21 AM REASON FOR EXAM: LEFT KNEE PAIN AND SWELLING S/P TOTAL KNEE ARTHROPLASTY LT COMPARISON: None. TECHNIQUE: Axial CT obtained of the left knee without contrast. Multiplanar reconstructions are performed. Automated exposure control was utilized for dose reduction. FINDINGS: Prior left total knee arthroplasty. The prosthetic components are grossly unremarkable by CT evaluation. No evidence of loosening, subsidence or migration. The joint is well aligned, no significant subluxation. Patellofemoral alignment is normal. Small to moderate joint effusion. Moderate synovial thickening, particularly in the suprapatellar joint recess. No popliteal cyst. Surgical scar noted anteriorly. No evidence of abscess. Procedure Note Adilson Gould MD - 11/26/[address] [id number] EXAMINATION: CT left knee without contrast. EXAM DATE/TIME: 11/18/2024 9:21 AM REASON FOR EXAM: LEFT KNEE PAIN AND SWELLING S/P TOTAL KNEE ARTHROPLASTYLT COMPARISON: None. TECHNIQUE: Axial CT obtained of the left knee without contrast.Multiplanar reconstructions are performed. Automated exposure control wasutilized for dose reduction. FINDINGS: Prior left total knee arthroplasty. The prosthetic componentsare grossly unremarkable by CT evaluation. No evidence of loosening,subsidence or migration. The joint is well aligned, no significantsubluxation. Patellofemoral alignment is normal. Small to moderate jointeffusion. Moderate synovial thickening, particularly in the suprapatellarjoint recess. No popliteal cyst. Surgical scar noted anteriorly. Noevidence of abscess. =====IMPRESSION:===== 1. Unremarkable left total knee arthroplasty. No evidence of loosening,subsidence or migration. 2. Small to moderate joint effusion with moderate synovial thickening ofthe suprapatellar recess suggesting synovitis. Ordered By: CONTRERAS LOCKHART Interpreted By: Adilson Gould MD, 11/26/2024 12:00 PM Contreras Lockhart MD CT Final Result from Last 3 Months Insurance [facility] Care Teams Photoengraving Photographer Relationship Specialty Start Date End Date Leonides Broderick MD [address] [address] PCP - General FAMILY PRACTICE 10/04/19
--- OUTSIDE RECORDS SUMMARY | 2024-11-27 16:07 | XMS_ITS | Clinical Summary ---
Author Organization [facility] Address [address] [place] [address] Care Team Providers Care Geophysical Laboratory Chief Name Role Phone Leonides Broderick MD Primary Care Provider [phone] [facility],non-owned Affiliates and Associated Physician Practices is amultiple site organization consisting of ambulatory clinics and hospital sitesin [place], [place], [place] and [place]. This disclosure is being madepursuant to the Care Everywhere program and may not contain all information available regarding this patient. Last updated 17.[facility] Allergies Active Allergy Reactions Criticality Noted Date Comments Nsaids Other 08/13/[address] IN [address] Medications * Be aware that medications may not be up to date on this document. Alwaysverify current medications with the patient. omeprazole (PriLOSEC) 40 MG capsule Take 1 (one) capsule by mouth 2 times daily, before breakfast and supper 60 capsule 1 4 Active sucralfate (Carafate) 1 GM/10ML suspension SHAKE LIQUID WELL& TAKE 10 ML BY MOUTH THREE TIMES DAILY( REASONS: RECTUM INFLAMMATION AFTER RADIATION TREATMENT) 900 mL 2 4 Active ondansetron, disintegrating , (Zofran ODT) 4 MG tablet Take 1 (one) tablet by mouth every 6 hours as needed for Nausea/Vomiting Allow tablet to dissolve on the tongue 30 tablet 05/09/2024 5:35 PM AUTOMOTIVE WHOLESALE PARTS ADVISOR 5 Active tiZANidine (Zanaflex) 4 MG tablet Take 1 (one) tablet by mouth nightly as needed for Muscle Spasms Regular refill hx, most recently #30 tabs on 04/05/2024 Active famotidine (Pepcid) 20 MG tablet Take 1 (one) tablet by mouth at bedtime 30 tablet 3 3 025 Discontin ued(Tx Complete) lisinopril (Prinivil; Zestril) 10 MG tablet Take 1 (one) tablet by mouth once daily 4 025 Discontin ued(Tx Complete) Active Problems Problem Noted Date Diagnosed Date S/P gastric bypass 05/08/2024 Abdominal pain, epigastric 02/13/2024 Morbid obesity due to excess calories 02/04/2016 Essential hypertension 02/04/2016 Encounters Date Type Department Care Team Description 11/13/2024 Results Follow-Up [facility] Weight Management Services [address] [place] [address], [facility] [address] [place] [address] Adrienne Sarah APRN-CNP 11/07/2024 10:00 AM CDT Office Visit [facility] [address] [place] [address], [facility] [address] [place] [address] Adrienne Sarah APRN-CNP Morbid obesity (HCC) (Primary Dx); Bariatric surgery status; Vitamin deficiency; Vitamin D deficiency; Postsurgical malabsorption (HCC) from Last 3 Months Immunizations Immunization Administration [...] and heating? Not hard at all 05/08/2024 [facility] [place] [facility] Occupat ional Health - Occupational Stress [...] any time in the past 12 m onths, were you homeless or living in a alf (including now)? No 05/08/2024 Comments No Sex and Gender Information Value Date Recorded Sex Assigned at Not on file Legal Sex Female 10:27 AM CDT Gender Identity Not on file Sexual Orientation Not on file Last Filed Vital Signs Vital Sign Reading Time Taken Comments Blood Pressure 108/64 11/07/2024 10:12 AM CDT Pulse 65 11/07/2024 10:12 AM CDT Temperature 36.6 C (97.9 F) 11/07/2024 10:12 AM CDT Respiratory Rate 16 11/07/2024 10:12 AM CDT Oxygen Saturation 99% 11/07/2024 10:12 AM CDT Inhaled Oxygen Concentration - - Weight 79.1 kg (174 lb 6.4 oz) 11/07/2024 10:12 AM CDT Height 170.2 cm (5' 7.01) 11/07/2024 10:12 AM C DT Body Mass Index 27.31 11/07/2024 10:12 AM CDT Plan of Treatment Upcoming Encounters Date Type Department Care Team (Late st Contact Info) Description 05/08/2025 10:00 AM AUTOMOTIVE WHOLESALE PARTS ADVISOR Office Visit [facility] [address], [address] [place] [address] Adrienne Sarah, COOK RESTAURANT-NATIONAL ACCOUNT MANAGER [address] [facility] [address] [place], [place] [id number] Health Maintenance Due Date Last Done Comments [...] 07/12/2020, 06/22/2020 DEPRESSION SCREENING 03/27/2024 INFLUENZA VACCINE (#1) 2024 8, 04/11/2017, 04/25/2016, Additional history exists ZOSTER VACCINE (1 of 2) 2026 SCREENING FOR DIABETES 11/08/2027 5, 05/10/2024, 05/10/2024, Additional history exists HIB VACCINE Aged Out [...] Procedure Name Priority Date/Time Associated Diagnosis Comments VITAMIN D 25-HYDROXY Routine 11/07/2024 11:26 AM CDT Morbid obesity (HCC) Bariatric surgery status Vitamin deficiency Vitamin D deficiency Postsurgical malabsorption (HCC) FOLATE Routine 11/07/2024 11:26 AM CDT Morbid obesity (HCC) Bariatric surgery status Vitamin deficiency Vitamin D deficiency Postsurgical malabsorption (HCC) IRON + TIBC PANEL Routine 11/07/2024 11: 26 AM CDT Morbid obesity (HCC) Bariatric surgery status Vitamin deficiency Vitamin D deficiency Postsurgical malabsorption (HCC) CBC W/O DIFFERENTIAL Routine 11/07/2024 11:25 AM CDT Morbid obesity (HCC) Bariatric surgery status Vitamin deficiency Vitamin D deficiency Postsurgical malabsorption (HCC) ZINC BLOOD Routine 11/07/2024 11:15 AM CDT Morbid obesity (HCC) Bariatric surgery status Vitamin deficiency Vitamin D deficiency Postsurgical malabsorption (HCC) VITAMIN E Routine 11/07/2024 11:15 AM CDT Morbid obesity (HCC) Bariatric surgery status Vitamin deficiency Vitamin D deficiency Postsurgical malabsorption (HCC) VITAMIN K1 Routine 11/07/2024 11:15 AM CDT Morbid obesity (HCC) Bariatric surgery status Vitamin deficiency Vitamin D deficiency Postsurgical malabsorption (HCC) VITAMIN B12 Routine 11/07/2024 11:15 AM CDT Morbid obesity (HCC) Bariatric surgery status Vitamin deficiency Vitamin D deficiency Postsurgical malabsorption (HCC) VITAMIN B1 Routine 11/07/2024 11:15 AM CDT Morbid obesity (HCC) Bariatric surgery status Vitamin deficiency Vitamin D deficiency Postsurgical malabsorption (HCC) VITAMIN A Routine 11/07/2024 11:15 AM CDT Morbid obesity (HCC) Bariatric surgery status Vitamin deficiency Vitamin D deficiency Postsurgical malabsorption (HCC) PTH INTACT Routine 11/07/2024 11:15 AM CDT Morbid obesity (HCC) Bariatric surgery status Vitamin deficiency Vitamin D deficiency Postsurgical malabsorption (HCC) MAGNESIUM BLOOD Routine 11/07/2024 11:15 AM CDT Morbid obesity (HCC) Bariatric surgery status Vitamin deficiency Vitamin D deficiency Postsurgical malabsorption (HCC) FERRITIN Routine 11/07/2024 11:15 AM CDT Morbid obesity (HCC) Bariatric surgery status Vitamin deficiency Vitamin D deficiency Postsurgical malabsorption (HCC) COPPER BLOOD Routine 11/07/2024 11:15 AM CDT Morbid obesity (HCC) Bariatric surgery status Vitamin deficiency Vitamin D deficiency Postsurgical malabsorption (HCC) COMPREHENSIVE METABOLIC PANEL Routine 11/07/2024 11:15 AM CDT Morbid obesity (HCC) Bariatric surgery status Vitamin deficiency Vitamin D deficiency Postsurgical malabsorption (HCC) from Last 3 Months Results * VITAMIN D 25-HYDROXY (11/07/2024 11:26 AM CDT) [facility] Vitamin D, 25 Hydroxy 31.8 30.0 - 100.0 ng/mL [facility] ACCOUNT BILL Comment: Vitamin D deficiency has been defined by the [place] of Medicine and an Endocrine Society practice guideline as a level of serum 25-OH vitamin D less than 20 ng/mL (1,2). The Endocrine Society went on to further define vitamin D insufficiency as a level between 21 and 29 ng/mL (2). 1. IOM ([place] of Medicine). 2010. Dietary reference intakes for calcium and D. [place]: The National Academies Press. 2. Celine RODRIGUEZ, Rachel PULIDO, Sherly CUETO, et al. Evaluation, treatment, and prevention of vitamin D deficiency: an Endocrine Society clinical practice guideline. JCEM. 2010; 96(7):1911-30. Blood BLOOD SPECIMEN / Unknown 11/07/2024 11:26 AM CDT 11/07/2024 Narrative [facility] ACCOUNT BILL - 11/08/2024 7:06 AM CDT Performed at: - [facility] [address] [id number] Employee Relations Manager: Javi Daniels PhD, Phone: [phone] us Adrienne Sarah APRN-NATIONAL ACCOUNT MANAGER LAB - CHEMISTRY KRISTEN SAMUEL Final Result Performing Organization Address [facility] Co de Phone Number [facility] ACCOUNT BILL [address] [place] [address] * IRON + TIBC PANEL (11/07/2024 11:26 AM CDT) TIBC 303 250 - 450 ug/dL [facility] ACCOUNT BILL UIBC 239 131 - 425 ug/dL [facility] ACCOUNT BILL Iron 64 27 - 159 ug/dL [facility] ACCOUNT BILL Iron Saturation 21 15 - 55 % [facility] ACCOUNT BILL Blood BLOOD SPECIMEN / Unknown 11/07/2024 11:26 AM CDT 11/07/2024 Narrative [facility] ACCOUNT BILL - 11/08/2024 8:07 AM CDT Performed at: - [facility] [address] [id number] Employee Relations Manager: Javi Daniels PhD, Phone: [phone] us Adrienne Sarah APRN-NATIONAL ACCOUNT MANAGER LAB - CHEMISTRY KRISTEN SAMUEL Final Result Performing Organization Address [facility] Co de Phone Number [facility] ACCOUNT BILL [address] [place] [address] * FOLATE (11/07/2024 11:26 AM CDT) Folate 9.5 >3.0 ng/mL [facility] ACCOUNT BILL Comment: A serum folate concentration of less than 3.1 ng/mL is considered to represent clinical deficiency. Blood BLOOD SPECIMEN / Unknown 11/07/2024 11:26 AM CDT 11/07/2024 Narrative [facility] ACCOUNT BILL - 11/08/2024 8:07 AM CDT Performed at: - [facility] [address] [id number] Employee Relations Manager: Javi Daniels PhD, Phone: [phone] us Adrienne Sarah APRN-[facility] LAB - CHEMISTRY ORDE RABLES Final Result Performing Organization Address City/[facility]/ZIP Co de Phone Number [facility] ACCOUNT BILL [address] [place] [address] * (ABNORMAL) CBC W/O DIFFERENTIAL (11/07/2024 11:25 AM CDT) WBC 7.1 3.4 - 10.8 x10E3/uL [facility] ACCOUNT BILL RBC 4.45 3.77 - 5.28 x10E6/uL [facility] ACCOUNT BILL Hemoglobin 12.6 11.1 - 15.9 g/dL [facility] ACCOUNT BILL Hematocrit 40.4 34.0 - 46.6 % [facility] ACCOUNT BILL MCV 91 79 - 97 fL [facility] ACCOUNT BILL MCH 28.3 26.6 - 33.0 pg [facility] ACCOUNT BILL MCHC 31.2(L) 31.5 - 35.7 g/dL [facility] ACCOUNT BILL RDW 12.4 11.7 - 15.4 % [facility] ACCOUNT BILL Platelet Count 349 150 - 450 x10E3/uL [facility] ACCOUNT BILL Blood BLOOD SPECIMEN / Unknown 11/07/2024 11:25 AM CDT 11/07/2024 Narrative [facility] ACCOUNT BILL - 11/08/2024 6:07 AM CDT Performed at: - [facility] [address] [id number] Employee Relations Manager: Javi Daniels PhD, Phone: [phone] us Adrienne ARREDONDO LAB - HEMATOLOGY ORD ERABLES Final Result Performing Organization Address City/[facility]/ZIP Co de Phone Number [facility] ACCOUNT BILL [address] [place] [address] * VITAMIN K1 (11/07/2024 11:15 AM CDT) Pathologist [facility] Vitamin K1 0.13 0.10 - 2.20 ng/mL [facility] ACCOUNT BILL Blood BLOOD SPECIMEN / Unknown 11/07/2024 11:15 AM CDT 11/07/2024 Narrative [facility] ACCOUNT BILL - 11/12/2024 2:07 PM CDT Test(s) 088098-Sravcbc K1 was developed and its performance characteristics determined by [facility]. It has not been cleared or approved by the Food and Drug Administration. Performed at: 01 - [facility] [address] [id number] Employee Relations Manager: Fariha Ruiz MD, Phone: [phone] Adrienne Sarah APRN-NATIONAL ACCOUNT MANAGER LAB - CHEMISTRY ORDE RABLES Final Result Performing Organization Address [facility] de Phone Number [facility] ACCOUNT BILL [address] [place] [address] * ZINC BLOOD (11/07/2024 11:15 AM CDT) Zinc, Plasma or Serum 67 44 - 115 ug/dL [facility] ACCOUNT BILL Comment:Detection Limit = 5 Blood BLOOD SPECIMEN / Unknown 11/07/2024 11:15 AM CDT 11/07/2024 Narrative [facility] ACCOUNT BILL - 11/12/2024 2:07 PM CDT Test(s) 339740-Nphc, Plasma or Serum was developed and its performance characteristics determined by [facility]. It has not been cleared or approved by the Food and Drug Administration. Performed at: - [facility] [address] [id number] Employee Relations Manager: Fariha Ruiz MD, Phone: [phone] us Adrienne ROQUENATIONAL ACCOUNT MANAGER LAB - CHEMISTRY ORDE RABLES Final Result Performing Organization Address [facility] Co de Phone Number [facility] ACCOUNT BILL [address] [place] [address] * VITAMIN A (11/07/2024 11:15 AM CDT) Vitamin A 29.7 20.1 - 62.0 ug/dL [facility] ACCOUNT BILL Comment: Reference intervals for vitamin A determined from [facility] internal studies. Individuals with vitamin A less than 20 ug/dL are considered vitamin A deficient and those with serum concentrations less than 10 ug/dL are considered severely deficient. This test was developed and its performance characteristics determined by [facility]. It has not been cleared or approved by the Food and Drug Administration. Blood BLOOD SPECIMEN / Unknown 11/07/2024 11:15 AM CDT 11/07/2024 Narrative [facility] ACCOUNT BILL - 11/12/2024 8:07 PM CDT Performed at: - [facility] [id number] Employee Relations Manager: Fariha Ruiz MD, Phone: [phone] Adrienne Sarah [facility] LAB - CHEMISTRY ORDE JIMMIE Final Result [facility] ACCOUNT BILL [address] [place] [address] * VITAMIN E (11/07/2024 11:15 AM CDT) [facility] Vitamin E Alpha Tocopherol 11.6 7.0 - 25.1 mg/L [facility] ACCOUNT BILL Vitamin E Gamma Tocopherol 0.7 0.5 - 5.5 mg/L [facility] ACCOUNT BILL Comment: Reference intervals for alpha and gamma-tocopherol determined from National Health and Nutrition Examination Survey, 0063-4228. Individuals with alpha-tocopherol levels less than 5.0 mg/L are considered vitamin E deficient. Blood BLOOD SPECIMEN / Unknown 11/07/2024 11:15 AM CDT 11/07/2024 Narrative [facility] ACCOUNT BILL - 11/12/2024 8:07 PM CDT Test(s) 606555-Gmkcwax E(Alpha Tocopherol); 497891- Vitamin E(Gamma Tocopherol) was developed and its performance characteristics determined by [facility]. It has not been cleared or approved by the Food and Drug Administration. Performed at: - [facility] [id number] Employee Relations Manager: Fariha Ruiz MD, Phone: [phone] Ad[facility]ne [facility] LAB - CHEMISTRY ORDE RABLES Final Result [facility] ACCOUNT BILL [address] [place] [address] * VITAMIN B1 (11/07/2024 11:15 AM CDT) Pathologist [facility] Vitamin B1 Whole Blood 95.6 66.5 - 200.0 nmol/L [facility] ACCOUNT BILL Blood BLOOD SPECIMEN / Unknown 11/07/2024 11:15 AM CDT 11/07/2024 Narrative [facility] ACCOUNT BILL - 11/12/2024 8:07 PM CDT Test(s) 574780-Xvv. B1, Whole Blood was developed and its performance characteristics determined by [facility]. It has not been cleared or approved by the Food and Drug Administration. Performed at: - [facility] [id number] Employee Relations Manager: Fariha Ruiz MD, Phone: [phone] us Adrienne Sarah [facility] LAB - CHEMISTRY ORDE RABLES Final Result Performing Organization Address City/[facility]/ZIP Co de Phone Number [facility] ACCOUNT BILL [address] [place] [address] * PTH INTACT (11/07/2024 11:15 AM CDT) Pathologist [facility] PTH Intact 24 15 - 65 pg/mL [facility] ACCOUNT BILL Blood BLOOD SPECIMEN / Unknown 11/07/2024 11:15 AM CDT 11/07/2024 Narrative [facility] ACCOUNT BILL - 11/08/2024 12:07 PM CDT Performed at: - [facility] [id number] [place], [place] [id number] Employee Relations Manager: Javi Daniels PhD, Phone: [phone] us Adrienne Sarah [facility] LAB - CHEMISTRY ORDE RABLES Final Result [facility] ACCOUNT BILL [address] [place] [address] * COPPER BLOOD (11/07/2024 11:15 AM CDT) Copper 127 80 - 158 ug/dL [facility] ACCOUNT BILL Comment:Detection Limit = 5 Blood BLOOD SPECIMEN / Unknown 11/07/2024 11:15 AM CDT 11/07/2024 Narrative [facility] ACCOUNT BILL - 11/12/2024 2:07 PM CDT Test(s) 600644-Rxyegj, Serum or Plasma was developed and its performance characteristics determined by [facility]. It has not been cleared or approved by the Food and Drug Administration. Performed at: 01 - [facility] [address] [id number] Employee Relations Manager: Fariha Ruiz MD, Phone: [phone] us Adrienne Sarah COOK RESTAURANT-NATIONAL ACCOUNT MANAGER LAB - CHEMISTRY ORDE JIMMIE Final Result [facility] ACCOUNT BILL [address] [place] [address] * COMPREHENSIVE METABOLIC PANEL (11/07/2024 11:15 AM CDT) Glucose 82 70 - 99 mg/dL [facility] ACCOUNT BILL BUN 13 6 - 24 mg/dL [facility] ACCOUNT BILL Creatinine 0.57 0.57 - 1.00 mg/dL [facility] ACCOUNT BILL eGFR by CKD-EPI 112 >59 mL/min/1.7 3 [facility] ACCOUNT BILL BUN/Creatinine Ratio 23 9 - 23 [facility] ACCOUNT BILL Sodium 140 134 - 144 mmol/L [facility] ACCOUNT BILL Potassium 4.4 3.5 - 5.2 mmol/L [facility] ACCOUNT BILL Chloride 103 96 - 106 mmol/L [facility] ACCOUNT BILL CO2 22 20 - 29 mmol/L [facility] ACCOUNT BILL Calcium 9.6 8.7 - 10.2 mg/dL [facility] ACCOUNT BILL Protein Total 6.5 6.0 - 8.5 g/dL [facility] ACCOUNT BILL Albumin 4.4 3.9 - 4.9 g/dL [facility] ACCOUNT BILL Globulin Total 2.1 1.5 - 4.5 g/dL [facility] ACCOUNT BILL Bilirubin Total 0.4 0.0 - 1.2 mg/dL [facility] ACCOUNT BILL Alkaline Phosphatase 91 44 - 121 IU/L [facility] ACCOUNT BILL AST 13 0 - 40 IU/L [facility] ACCOUNT BILL ALT 9 0 - 32 IU/L [facility] ACCOUNT BILL Blood BLOOD SPECIMEN / Unknown 11/07/2024 11:15 AM CDT 11/07/2024 Narrative [facility] ACCOUNT BILL - 11/08/2024 7:06 AM CDT Performed at: [address] [place] [id number] Employee Relations Manager: Javi Daniels PhD, Phone: [phone] us Adrienne Sarah [facility] LAB - CHEMISTRY ORDE RABALIDA Final Result Performing Organization Address [facility] de Phone Number [facility] ACCOUNT BILL [address] [place] [address] * MAGNESIUM BLOOD (11/07/2024 11:15 AM CDT) Magnesium 2.0 1.6 - 2.3 mg/dL [facility] ACCOUNT BILL Blood BLOOD SPECIMEN / Unknown 11/07/2024 11:15 AM CDT 11/07/2024 Narrative [facility] ACCOUNT BILL - 11/08/2024 8:07 AM CDT Performed at: [address] [place] [id number] Employee Relations Manager: Javi Daniels PhD, Phone: [phone] us Adrienne Sarah [facility] LAB - CHEMISTRY ORDE RABALIDA Final Result Performing Organization Address City/[facility] Co de Phone Number [facility] ACCOUNT BILL [address] [place] [address] * VITAMIN B12 (11/07/2024 11:15 AM CDT) Vitamin B12 265 232 - 1,245 pg/mL [facility] ACCOUNT BILL Blood BLOOD SPECIMEN / Unknown 11/07/2024 11:15 AM CDT 11/07/2024 Narrative [facility] ACCOUNT BILL - 11/08/2024 8:07 AM CDT Performed at: [address] [place], [place] [id number] [place], [place] [id number] Employee Relations Manager: Javi Daniels PhD, Phone: [phone] us Adrienne Sarah APRN-NATIONAL ACCOUNT MANAGER LAB - CHEMISTRY ORDE RABLES Final Result Performing Organization Address City/[facility]/ZIP Co de Phone Number [facility] ACCOUNT BILL [address] [place] [address] * FERRITIN (11/07/2024 11:15 AM CDT) [facility] Ferritin 67 15 - 150 ng/mL [facility] ACCOUNT BILL Blood BLOOD SPECIMEN / Unknown 11/07/2024 11:15 AM CDT 11/07/2024 Narrative [facility] ACCOUNT BILL - 11/08/2024 8:07 AM CDT Performed at: 01 - [facility] [address] [id number] Employee Relations Manager: Javi Daniels PhD, Phone: [phone] Adrienne Sarah APRN-NATIONAL ACCOUNT MANAGER LAB - CHEMISTRY ORDE RABLES Final Result Performing Organization Address City/[facility]/ZIP Co de Phone Number [facility] ACCOUNT BILL [address] [place] [address] from Last 3 Months Insurance [facility] [place] [address] [facility] Address: [facility] [id number] [place] [address] Advance Directives * Full Code (Latest Code [...] 4:12 PM 09/01/2016 4:05 PM Care Teams Geophysical Laboratory Chief Relationship Specialty Start Date End Date Leonides Broderick MD [address] [place] [address] PCP - General Family Medicine 12/02/14
--- OUTSIDE RECORDS SUMMARY | 2024-11-27 16:07 | XMS_ITS | Clinical Summary ---
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 Iron deficiency anemia 07/02/2021 Breast mass 05/27/2013 Nephrolithiasis Breast pain Mastodynia Kidney stone Resolved Problems Problem Noted Date Diagnosed Date Resolved Date Breast lump 05/27/2013 Breast lump 05/27/2013 Encounters Date Type Department Care Team Description 10/29/2024 External Device Data [facility] Provider, Abstract 10/09/2024 External Device Data [facility] Provider, Abstract 10/08/2024 External Device Data [facility] Provider, Abstract 09/10/2024 External Device Data [facility] Provider, Abstract 09/03/2024 External Device Data [facility] Provider, Abstract 08/30/2024 Orders Only [facility] Oncology and Hematology - [place] [address] [id number] Julio Marqeuz MD from Last 3 Months Family History Medical History Relation Name Comments [...] on file Legal Sex Female 10:13 AM ARMATURE INSPECTOR Gender Identity Not on file Sexual Orientation Not on file Occupation Industry Job Start Date Job End Date Not on file Not on file Not on file Not on file Last Filed Vital Signs Vital Sign Reading Time Taken Comments Blood Pressure 127/77 08/26/2024 11:31 AM CDT Pulse 69 08/26/2024 11:31 AM CDT Temperature 36.3 C (97.4 F) 08/26/2024 11:31 AM CDT Respiratory Rate 15 08/26/2024 11:3 1 AM CDT Oxygen Saturation 94% 08/26/2024 11: 31 AM CDT Inhaled Oxygen Concentration - - Weight 84.3 kg (185 lb 12.8 oz) 06/02/2 025 11:31 AM CDT Height 170.2 cm (5' 7) 07/02/2021 9:58 AM CDT Body Mass Index 29.1 07/02/2021 9:58 AM CDT Plan of Treatment Health Maintenance Due Date Last Done Comments Pre-Diabetes and Diabetes Screening 1976 HEPATITIS B VACCINES (1 of 3 - 19+ 3-dose series) 1995 05/01/2017 BREAST CANCER SCREENING 2016 COLORECTAL SCREENING 2021 Colorectal Cancer Screening 2021 FIT-DNA Q 3 years 2021 FIT/FOBT Q 1 year 2021 Flex Sig/CT Colonography Q 5 years 2021 INFLUENZA VACCINE (#1) 2024 8, 04/25/2016, 01/13/2015 DTAP/TDAP/TD VACCINES (3 - T d or Tdap) 04/28/2027 04/28/2017, 09/22/2011 [place] [address] [facility] BLUE ACCESS/[place] [address] [place] [id number] Care Teams Acid Crane Operator Relationship Specialty Start Date End Date Leonides Broderick MD [address] [place] [address] PCP - General Family Practice 07/02/21
== END 2024-11-27 14:34 | disposition home or self-care (01) ==
LOC: ANHLAB 14:34
PROVIDERS: PCP Family Medicine; Visit Provider Physician Assistant Medical
DX: R59.0 Localized enlarged lymph nodes (principal)
CPT/HCPCS: 36415; 85025

== ENCOUNTER 2024-12-16 12:37 | Outpatient (CLI) | payer BC, SELFPAY ==
--- OUTSIDE RECORDS SUMMARY | 2013-03-25 01:00 | XMS_ITS | Encounter Summary ---
Author Organization [facility] Healthcare Address [facility] [place] [address] Care Team Providers Care Yeast Culture Operator Name Role Phone Unavailable Primary Care Provider Unavailabl e Reason for Visit * Diagnostic Imaging (Routine) - Closed Specialty Diagnoses / Procedures Referred By Godwin obrien Referred To Contact Procedures Breast Imaging US Outside Reference Isaiah Hernandez NP Phone: tel: fax: Referral ID Status Reason Start Date Expiration Date Visits Re quested Visits Authorized [id number] Closed 02/22/2022 03/24/2023 1 1 Encounter Details Date Type Department Care Team (Late st Contact Info) Description 03/25/2013 Hospital Encounter [facility] [address] [place] [address] Social History Tobacco Use Types Packs/Day Years Used Date Smoking Tobacco: Never Smokeless Tobacco: Never Alcohol Use Standard Drinks/Week Comments No 0 (1 standard drink = 0.6 oz pur e alcohol) [facility] Utilities Answer Date Recorded In the past 12 months has [employer], gas, oil, or water [employer] threatened to shut off services in your home? No 08/27/2024 Social Connection and Isolation Panel Answer Date Recorded In a typical week, how many times do you talk on the phone with family, friends, or neighbors? More than three times a week 08/27/2024 How often do you get togethe r with friends or relatives? More than three times a week 08/27/2024 How often do you attend chur or advent services? 1 to 4 times per year 08/27/2024 Do you belong to any clubs o r organizations such as advent groups, unions, fraternal or athletic groups, or school groups? No 08/27/2024 How often do you attend meet ings of the clubs or organizations you belong to? 1 to 4 times per year 08/27/2024 Are you , , di vorced, , never , or living with a partner? 08/27/2024 AUDIT-C Answer Date Recorded Q1: How often do you have a drink containing alcohol? Never 09/19/2024 Q2: How many drinks containi ng alcohol do you have on a typical day when you are drinking? Patient does not drink Q3: How often do you have si x or more drinks on one occasion? Never 09/19/2024 Overall Financial Resource Strain (CARDIA) Answe r Date Recorded How hard is it for you to pa y for the very basics like food, housing, medical care, and heating? Not hard at all 08/27/2024 Hunger Vital Sign Answer Date Recorded Within the past 12 months, y ou worried that your food would run out before you got the money to buy more. Never true 08/28/19 25 Within the past 12 months, t he food you bought just didn't last and you didn't have money to get more. Never true 08/27/2024 PRAPARE - Transportation Answer Date Re corded In the past 12 months, has l ack of transportation kept you from medical appointments or from getting medications? No 05/2024 In the past 12 months, has l ack of transportation kept you from meetings, work, or from getting things needed for daily living? No 08/27/2024 Housing Stability Vital Sign Answer Cheo e Recorded In the last 12 months, was t here a time when you were not able to pay the mortgage or rent on time? No 08/27/2024 In the past 12 months, how m any times have you moved where you were living? 1 08/27/2024 At any time in the past 12 m [facility], were you homeless or living in a jail (including now)? No 08/27/2024 Personal Safety Answer Date Recorded Have you ever been in or are you currently in a harmful physical or emotional relationship or is someone making you feel afraid or unsafe? Denies 09/19/2024 Comments No Sex and Gender Information Value Date Recorded Sex Assigned at Not on file Legal Sex Female 10:59 AM CDT Gender Identity Not on file Sexual Orientation Not on file documented as of this encounter Functional Status * AUDIT-C Score Answer Date of Assessment Author 0 09/19/2024 1:36 PM Bertha Enriquez RN * Question Answer Date of Assessment Author Q1: How often do you have a drink containing alcohol? Never 09/19/2024 1:36 PM Bertha Enriquez, JANEEN Q2: How many drinks containing alcohol do you have on a typical day when you are drinking? Patient does not drink 09/19/2024 1:36 PM Bertha Enriquez RN Q3: How often do you have six or more drinks on one occasion? Never 09/19/2024 1:36 PM Bertha Enriquez RN documented as of this encounter Plan of Treatment Not on file documented as of this encounter Procedures Procedure Name Priority Date/Time Associated Diagnosis Comments BREAST IMAGING US OUTSIDE REFERENCE Routine 03/25/2013 12:00 AM SPORTS SPECIALIST documented in this encounter Results * Breast Imaging US Outside Reference (03/25/2013 12:00 AM SPORTS SPECIALIST) Impressions [facility] - 02/22/2022 9:16 AM SPORTS SPECIALIST These images are for Reference purposes only and have not been reviewed by [facility] Radiology. There will be no report generated by a [facility] Radiologist. Narrative [facility] - 02/22/2022 9:16 AM SPORTS SPECIALIST EXAMINATION: Images For Reference Purposes Only us Isaiah Hernandez NP IMG MAMMO PROCEDURES Final Result [facility] documented in this encounter Visit Diagnoses Not on filedocumented in this encounter
--- OUTSIDE RECORDS SUMMARY | 2013-03-25 01:05 | XMS_ITS | Encounter Summary ---
Author Organization [facility] Healthcare Address [address] [place] [address] Care Team Providers Care Keyboarding Teacher Name Role Phone Unavailable Primary Care Provider Unavailabl e Reason for Visit * Diagnostic Imaging (Routine) - Closed Specialty Diagnoses / Procedures Referred By Godwin obrien Referred To Contact Procedures Breast Imaging Diagnostic Outside Reference Isaiah Hernandez NP Phone: tel: fax: Referral ID Status Reason Start Date Expiration Date Visits Re quested Visits Authorized [id number] Closed 02/22/2022 03/24/2023 1 1 Encounter Details Date Type Department Care Team (Late st Contact Info) Description 03/25/2013 12:05 AM [facility] Hospital Encounter [facility]iology [facility] [address] [place] [address] Social History Tobacco Use Types Packs/Day Years Used Date Smoking Tobacco: Never Smokeless Tobacco: Never Alcohol Use Standard Drinks/Week Comments No 0 (1 standard drink = 0.6 oz pur e alcohol) [facility] Utilities Answer Date Recorded In the past 12 months has [employer], gas, oil, or water [employer] threatened to shut off services in your [...] How often do you attend chur or protestant services? 1 to 4 times per year 08/27/2024 Do you belong to any clubs o r organizations such as baptist groups, unions, fraternal or athletic groups, or [...] any time in the past 12 m [facility], were you homeless or living in a long-term (including now)? No 08/27/2024 Personal Safety Answer [...] Priority Date/Time Associated Diagnosis Comments BREAST IMAGING MG DIAGNOSTIC OUTSIDE REFERENCE Routine 03/25/2013 12:05 AM CASHIER documented in this encounter Results * Breast Imaging Diagnostic Outside Reference (03/25/2013 12:05 AM CASHIER) Impressions [facility] - 02/22/2022 9:16 AM CASHIER These images are for Reference purposes only and have not been reviewed by [facility] Radiology. There will be no report generated by a [facility] Radiologist. Narrative [facility] - 02/22/2022 9:16 AM CASHIER EXAMINATION: Images For Reference Purposes Only us Isaiah Hernandez NP IMG MAMMO PROCEDURES Final Result [facility] documented in this encounter Visit Diagnoses Not on filedocumented in this encounter
--- OUTSIDE RECORDS SUMMARY | 2017-02-09 01:00 | XMS_ITS | Encounter Summary ---
Author Organization [facility] Healthcare Address [facility] [place] [address] Care Team Providers Care Director News Name Role Phone Unavailable Primary Care Provider Unavailabl e Reason for Visit * Diagnostic Imaging (Routine) - Closed Specialty Diagnoses / Procedures Referred By Godwin obrien Referred To Contact Diagnoses Mass of right breast, unspecified quadrant Procedures Breast Imaging Screening Outside Reference Isaiah Hernandez NP Phone: tel: fax: Referral ID Status Reason Start Date Expiration Date Visits Re quested Visits Authorized [id number] Closed 02/22/2022 03/24/2023 1 1 Encounter Details Date Type Department Care Team (Late st Contact Info) Description 02/09/2017 Hospital Encounter [facility]iology [facility] [address] [place] [address] Social History Tobacco Use Types Packs/Day Years Used Date Smoking Tobacco: Never Smokeless Tobacco: Never Alcohol Use Standard Drinks/Week Comments No 0 (1 standard drink = 0.6 oz pur e alcohol) [facility] Utilities Answer Date Recorded In the past 12 months has [employer], gas, oil, or water [employer] threatened to shut off services in your [...] How often do you attend chur or hindu services? 1 to 4 times per year 08/27/2024 Do you belong to any clubs o r organizations such as mormonism groups, unions, fraternal or athletic groups, or [...] any time in the past 12 m [facility], were you homeless or living in a senior care (including now)? No 08/27/2024 Personal Safety Answer [...] containing alcohol? Never 09/19/2024 1:36 PM Bertha Enriquez RN Q2: How many drinks containing alcohol do [...] Date/Time Associated Diagnosis Comments BREAST IMAGING MG SCREENING OUTSIDE REFERENCE Routine 02/09/2017 12:00 AM DIETARY SERVICES MANAGER Mass of right breast, unspecified quadrant documented in this encounter Results * Breast Imaging Screening Outside Reference (02/09/2017 12:00 AM DIETARY SERVICES MANAGER) Impressions [facility] - 02/22/2022 9:15 AM DIETARY SERVICES MANAGER These images are for Reference purposes only and have not been reviewed by [facility] Radiology. There will be no report generated by a [facility] Radiologist. Narrative [facility] - 02/22/2022 9:15 AM DIETARY SERVICES MANAGER EXAMINATION: Images For Reference Purposes Only us Isaiah Hernandez NP IMG MAMMO PROCEDURES Final Result [facility] documented in this encounter Visit Diagnoses Not on filedocumented in this encounter
--- OUTSIDE RECORDS SUMMARY | 2019-04-30 01:00 | XMS_ITS | Encounter Summary ---
Author Organization [facility] Healthcare Address [facility] [place] [address] Care Team Providers Care Strategic Consultant Name Role Phone Leonides Broderick MD Primary Care Provider [phone] Reason for Visit * Diagnostic Imaging (Routine) - Closed Specialty Diagnoses / Procedures Referred By Godwin t Referred To Contact Procedures Breast Imaging Screening Outside Reference Isaiah Hernandez NP Phone: tel: fax: Referral ID Status Reason Start Date Expiration Date Visits Re quested Visits Authorized [id number] Closed 02/22/2022 03/24/2023 1 1 Encounter Details Date Type Department Care Team (Late st Contact Info) Description 04/30/2019 Hospital Encounter [facility] [address] [place] [address] Social History Tobacco Use Types Packs/Day Years Used Date Smoking Tobacco: Never Smokeless Tobacco: Never Alcohol Use Standard Drinks/Week Comments No 0 (1 standard drink = 0.6 oz pur e alcohol) [facility] Utilities Answer Date Recorded In the past 12 months has [employer], gas, oil, or water [employer] threatened to shut off services in your [...] week 08/27/2024 How often do you attend [facility] or church services? 1 to 4 times per year 08/27/2024 Do you belong to any clubs o r organizations such as congregation groups, unions, fraternal or athletic groups, or [...] time in the past 12 m [facility], were you homeless or living in a [place] [facility] [place] facility (including now)? No 08/27/2024 Personal Safety Answer [...] SCREENING OUTSIDE REFERENCE Routine 04/30/2019 12:00 AM GEODETIC SURVEYOR TECHNOLOGIST documented in this encounter Results * Breast Imaging Screening Outside Reference (04/30/2019 12:00 AM GEODETIC SURVEYOR TECHNOLOGIST) Impressions [facility] - 02/22/2022 9:17 AM GEODETIC SURVEYOR TECHNOLOGIST These images are for Reference purposes only and have not been reviewed by [facility] Radiology. There will be no report generated by a [facility] Radiologist. Narrative RAD_M[facility]MO[facility] - 02/22/2022 9:17 AM GEODETIC SURVEYOR TECHNOLOGIST EXAMINATION: Images For Reference Purposes Only us Isaiah Hernandez PHYSICIAN RELATIONS REPRESENTATIVE IMG MAMMO PROCEDURES Final Result [facility] documented in this encounter Visit Diagnoses Not on filedocumented in this encounter Care Teams Strategic Consultant Relationship Specialty Start Date End Date Leonides Broderick MD PCP - General Family Medicine 01/26/18 07/23/24 documented as of this encounter
--- NOTE | ~2024-12-16 | US_ITS ---
US soft tissue head and neck 12/16/2024 13:12 Indication: Palpable right neck abnormality. Procedure: Soft tissue ultrasound right neck Comparison: CT neck dated 01/24/2018 Findings: Multiple oval hypoechoic soft tissue masses are present in the right cervical region, consistent with lymph nodes. Several nodes demonstrate preservation of central fatty hilum. The largest lymph node measures 11 mm in greatest dimension and also retains fatty hilum. No abnormal calcifications, cystic changes or necrotic areas are identified. No discrete soft tissue mass apart from the lymph nodes is seen. Impression: 1: Multiple right cervical lymph nodes some of which demonstrate preserved fatty hilum consistent with benign reactive lymphadenopathy. No suspicious features are identified. Clinical correlation recommended. If there is persistent clinical concern of interval enlargement, short-term follow-up ultrasound or tissue sampling may be considered. Reviewed, dictated and finalized at location O. Impression: 1: Multiple right cervical lymph nodes some of which demonstrate preserved fatt y hilum consistent with benign reactive lymphadenopathy. No suspicious features are identified. Clinical correlation recommended. If there is persistent clini bridget concern of interval enlargement, short-term follow-up ultrasound or tissue sampling may be considered.
--- OUTSIDE RECORDS SUMMARY | 2024-12-16 13:05 | XMS_ITS | Clinical Summary ---
Author Organization [facility] Address [address] [place] [phone] Care Team Providers Care Mental Health Social Worker Name Role Phone Jany Carpenter Unavailable [phone] Leonides Broderick MD Primary Care Provider [phone] Allergies Active Allergy Reactions Criticality Noted Date [...] and vaginal bleeding, unspecified;Recorded Elsewhere: No Location: [facility] Source: EHR Chronic: N Practice ID: [id number] Billable Time: 11:00:00 AM Obesity with body mass index 30 or greater 10/25 Overview (11/30/2022): Body mass index (BMI) 39.0-39.9, adult;Recorded Elsewhere: No Location: [facility] Source: EHR Chronic: N Practice ID: [id number] Billable Time: 01:30:00 PM Urinary tract infectious disease 07/18/2016 Overview (11/30/2022): Urinary tract infection, site not specified;Practice ID: 0001 Essential hypertension 02/04/2016 3 Morbid obesity due to excess calories 02/04/2016 08/17/2022 Leukocytosis 01/25/2016 Overview (11/30/2022): Elevated white blood cell count, unspecified;Recorded Elsewhere: No Location: [facility] Source: EHR Chronic: N Practice ID: 0001 Billable Time: 11:30:00 AM Encounters Date Type Department Care Team Description 11/29/2024 10:45 AM CDT Office Visit [facility] [address] [place] [address] [place] [phone] Contreras Damon MD S/P total knee arthroplasty, left (Primary Dx); S/P surgical manipulation of knee joint 11/18/2024 - 11/18/2024 11:59 PM CDT Hospital Encounter [facility] Outside Images [address] [place] [address] Discharge Disposition: Discharge to home or self care 11/12/2024 Telephone [facility] Medicine [address] [place] [phone] auth 11/07/2024 Orders Only [facility] Orthopedics and Sports Medicine [address] [place] [phone] Contreras Damon MD S/P total knee arthroplasty, left (Primary Dx); S/P surgical manipulation of knee joint 11/06/2024 9:59 AM CDT - 11/06/2024 11:59 PM CDT Hospital Encounter [facility] Diag Imaging [address] [place] [phone] S/P total knee arthroplasty, left Discharge Disposition: Discharge to home or self care 11/06/2024 9:45 AM CDT Office Visit [facility] Orthopedics and Sports Medicine [address] [place] [phone] Contreras Damon MD S/P total knee arthroplasty, left (Primary Dx) 10/31/2024 Patient Message [facility] [address] [place] [phone] Contreras Damon MD Knee replacement - time off work - FMLA paperwork 10/28/2024 10:00 AM CDT [facility] Visit [facility] [address] [place] [phone] Contreras Damon MD S/P total knee arthroplasty, left (Primary Dx); S/P surgical manipulation of knee joint 10/09/2024 10:17 AM CDT - 10/09/2024 11:59 PM CDT Hospital Encounter [facility] Diag Imaging [address] [place] [address] S/P total knee arthroplasty, left Discharge Disposition: Discharge to home or self care 10/09/2024 10:15 AM CDT Office Visit [facility] Medicine [address] [place] [phone] Contreras Damon MD S/P total knee arthroplasty, left (Primary Dx); Arthrofibrosis of total knee replacement, subsequent encounter 10/02/2024 9:15 AM CDT Office Visit [facility] Medicine [address] [place] [phone] Contreras Damon MD S/P total knee arthroplasty, left (Primary Dx); Arthrofibrosis of total knee replacement, subsequent encounter 09/19/2024 3:30 PM CDT - 09/19/2024 4:20 PM CDT Surgery [facility] OR [address] [place] [address] Contreras Damon MD LEFT KNEE MANIPULATION 09/19/2024 2:04 PM CDT Anesthesia Event [facility] OR [address] [place] [address] Mala Mc MD Taylor-White, Carlotta A., NP 09/19/2024 1:04 PM CDT - 09/19/2024 4:08 PM CDT Hospital Encounter [facility] OR [address] [place] [address] Contreras Damon MD Arthrofibrosis of knee joint, left (Primary Dx); S/P total knee arthroplasty, left Discharge Disposition: Discharge to home or self care 09/18/2024 8:30 AM CDT Office Visit [facility] Medicine [address] [place] [address] [address] [place] [phone] Contreras Damon MD S/P total knee arthroplasty, left (Primary Dx); Arthrofibrosis of total knee replacement, initial encounter 09/18/2024 8:19 AM CDT - 09/18/2024 11:59 PM CDT Hospital Encounter [facility] Diag Imaging [address] [place] [phone] S/P total knee arthroplasty, left Discharge Disposition: Discharge to home or self care 09/18/2024 Telephone [facility]ics [facility] Medicine [address] [place] [address] [place] [phone] Contreras Damon MD from Last 3 Months Immunizations Immunization Administration [...] greater than 1 week, being followed by hand assembler Hiatal hernia NO FURTHER ISSUE S AFTER [...] drink = 0.6 oz pur e alcohol) [facility] Utilities Answer Date Recorded In the past 12 months has th e electric, gas, oil, or water LIS[employer] threatened to shut off services in your [...] week 08/27/2024 How often do you attend [facility] ch or gnosticist services? 1 to 4 times per year 08/27/2024 Do you belong to any clubs o r organizations such as orthodox groups, unions, fraternal or athletic groups, or [...] the money to buy more. Never true 06/03/20 25 Within the past 12 months, t [...] time in the past 12 m [facility], were you homeless or living in a long term (including now)? No 08/27/2024 Personal Safety Answer [...] - - Weight 82.1 kg (181 lb) 11/29/2024 11:13 AM CDT Height 170.2 cm (5' 7) 11/29/2024 11:13 AM CDT Body Mass Index 28.35 11/29/2024 11:13 AM CDT Plan of Treatment Health Maintenance [...] this topic Medical Devices Implanted Type Area Timber Management Technician Device Identifier Shelf Expiration Date Model / Serial / Lot [employer] Simplex P Radiopaque Full Dose Cement Bone Sterile 6191-1-010 - [id number] Implanted:Qty: 1 on 08/27/2024 by Contreras Damon MD at [facility] Bone Cement Left: Knee [employer] [id number] 01/24/2027 6191-1-001 / / [id number] [employer] r[employer]o Journey Od32 Mm Resurfacing Round Standard Component Patellar [id number] - [id number] Implanted:Qty: 1 on 08/27/2024 by Contreras Damon MD at [facility] Left: Knee [employer]o [id number] 02/23/2034 [id number] / / [id number] [employer]o Journey Ii 10mm Bicruciate Stabilized Left 5-6 Insert Articular [id number] - [id number] Implanted:Qty: 1 on 08/27/2024 by Contreras Damon MD at [facility] Left: Knee [employer]o [id number] 09/12/2033 [id number] / / [id number] [employer]o Journey Bicruciate Stabilized Left Knee 5 Baseplate Tibial [id number] - [id number] Implanted:Qty: 1 on 08/27/2024 by Contreras Damon MD at [facility] Left: Knee [employer] r[employer]o [id number] 04/07/2034 [id number] / / [id number] [employer] Journey Ii 70.5x65.7mm Bicruciate Stabilize Knee Left 6 Component [id number] - [id number] Implanted:Qty: 1 on 08/27/2024 by Contreras Damon MD at [facility] Left: Knee [employer] [id number] 02/10/2034 [id number] / / [id number] Procedures Procedure Name Priority Date/Time Associated Diagnosis Comments MSK CT OUTSIDE REFERENCE Routine 11/18/2024 12:00 AM CDT XR KNEE LEFT 3 VIEWS Schedule Routine, [...] AM CDT S/P total knee arthroplasty, left from Last 3 Months Results * MSK CT Outside Reference (11/18/2024 12:00 AM CDT) Narrative JOSE GUADALUPE_MYLA_MHB_MHE - 11/28/2024 2:31 PM CDT This order has been auto-finalized and does not contain a result. us Contreras Damon MD IMG CT PROCEDURES Viridiana l Result RAD_CLARIO_MHB_MHE * XR Knee Left 3 Views (11/06/2024 [...] by Clyde Montez M.D. T: Report ID: [id number] Reading Location: [id number] Procedure Note Clyde Montez MD - 11/13/2024 [...] by Clyde Montez M.D. T: Report ID: [id number] Reading Location: [id number] Contreras Damon MD IMG XR PROCEDURES Viridiana [...] by Clyde Montez M.D. T: Report ID: [id number] Reading Location: [id number] Procedure Note Clyde Montez MD - 10/10/2024 [...] by Clyde Montez M.D. T: Report ID: [id number] Reading Location: [id number] Contreras Damon MD IMG XR PROCEDURES Viridiana [...] by Clyde Montez M.D. T: Report ID: [id number] Reading Location: [id number] Procedure Note Clyde Montez MD - 09/22/2024 [...] by Clyde Montez M.D. T: Report ID: [id number] Reading Location: [id number] Contreras Damon MD IMG XR PROCEDURES Viridiana l Result from Last 3 Months Insurance [employer] OOS [employer] OOS [employer] OOS Advance Directives For more information, please contact: [phone] * Full Code (Latest Code Status on File) Date Activated Date Inactivated Comments 08/27/2024 2:15 PM 08/28/2024 5:58 PM Care Teams Mental Health Social Worker Relationship Specialty Start Date End Date Leonides Broderick MD [address] [place] [address] PCP - General Family Medicine 07/24/24 Jany Carpenter PA [address] [place] [address] Physician Fountain Vending Mechanic Orthopedic Surgery 11/17/22
--- OUTSIDE RECORDS SUMMARY | 2024-12-16 13:05 | XMS_ITS | Clinical Summary ---
Author Organization [facility] [employer] Address [address] [place] [address] Care Team Providers Care Surgical Instruments Inspector Name Role Phone Leonides Broderick MD Primary Care Provider Source Comments [facility] [employer],non-owned Affiliates and Associated Physician Practices is amultiple site organization consisting of ambulatory clinics and hospital sitesin [place], [place], [place] and [place]. This disclosure is being madepursuant to the Care Everywhere program and may not contain all information available regarding this patient. Last updated 17.[facility] [employer] Allergies Active Allergy Reactions Criticality Noted Date [...] TREATMENT) 900 mL 2 4 Active ondansetron, disintegrating, (Zofran ODT) 4 MG tablet Take 1 (one) tablet by mouth every 6 hours as needed for Nausea/Vomiting Allow tablet to dissolve on the tongue 30 tablet 05/09/2024 5:35 PM SERVICE DESK TEAM LEAD 5 Active tiZANidine (Zanaflex) 4 MG tablet [...] Department Care Team Description 11/13/2024 Results Follow-Up [facility] Weight Management Services [address], [address] [place] [address] Adrienne Sarah APRN-CNP 11/07/2024 10:00 AM CDT Office Visit [facility] [address], [address] [place] [address] Adrienne Sarah APRN-CNP Morbid obesity (HCC) (Primary [...] and heating? Not hard at all 05/08/2024 [facility] [place] of Occupat ional Health - Occupational Stress [...] any time in the past 12 m [facility], were you homeless or living in a fpc (including now)? No 05/08/2024 Comments No Sex [...] st Contact Info) Description 05/08/2025 10:00 AM SERVICE DESK TEAM LEAD Office Visit [facility] [address], [address] [place] [address] Adrienne Sarah APRN-TIPPLE REPAIRER [address] [facility] [address] [place] [address] Health Maintenance Due Date Last Done Comments [...] of 3 - 19+ 3-dose series) 1995 DEPRESSION SCREENING 03/27/2024 COVID-19 VACCINE (4 - 2024- season) 2024 04/02/2021, 07/12/2020, 06/22/2020 INFLUENZA VACCINE (#1) 2024 8, 04/11/2017, 04/25/2016, [...] VITAMIN D 25-HYDROXY (11/07/2024 11:26 AM CDT) Vitamin D, 25 Hydroxy 31.8 30.0 - 100.0 ng/mL [facility] ACCOUNT BILL Comment: Vitamin D deficiency has been defined by the [place] of Medicine and an Endocrine Society practice guideline as a level of serum 25-OH vitamin D less than 20 ng/mL (1,2). The Endocrine Society went on to further define vitamin D insufficiency as a level between 21 and 29 ng/mL (2). 1. IOM ([place] of Medicine). 2010. Dietary reference intakes for calcium and D. [place]: The National Academies Press. 2. Celine MF, Rachel [place], Sherly CUETO, et al. Evaluation, treatment, and prevention of vitamin D deficiency: an Endocrine Society clinical practice guideline. JCEM. 2010; 96(7):1911-30. Blood BLOOD SPECIMEN / Unknown 11/07/2024 11:26 AM CDT 11/07/2024 Narrative [facility] ACCOUNT BILL - 11/08/2024 7:06 AM CDT Performed at: [address] [id number] Food Trades Assistants: Javi Daniels PhD, Phone: [phone] us Adrienne Sarah APRN-TIPPLE REPAIRER LAB - CHEMISTRY ORDE RABLES Final Result [facility] ACCOUNT BILL [address] [place] [address] * IRON + TIBC PANEL (11/07/2024 11:26 [...] 8:07 AM CDT Performed at: 01 - [facility] [id number] Food Trades Assistants: Javi Daniels PhD, Phone: [phone] us Adrienne Sarah APRN-TIPPLE REPAIRER LAB - CHEMISTRY ORDE RABLES Final Result Performing Organization Address City/[facility] Co de Phone Number [facility] ACCOUNT BILL [address] [place] [address] * FOLATE (11/07/2024 11:26 AM CDT) Folate 9.5 >3.0 ng/mL [facility] ACCOUNT BILL Comment: A serum folate concentration of less than 3.1 ng/mL is considered to represent clinical deficiency. Blood BLOOD SPECIMEN / Unknown 11/07/2024 11:26 AM CDT 11/07/2024 Narrative [facility] ACCOUNT BILL - 11/08/2024 8:07 AM CDT Performed at: 01 - [address] [id number] Food Tr[employer] Assistants: Javi Daniels PhD, Phone: [phone] us Adrienne Sarah APRN-TIPPLE REPAIRER LAB - CHEMISTRY ORDE RABLES Final Result [facility] ACCOUNT BILL [address] [place] [address] * (ABNORMAL) CBC W/O DIFFERENTIAL (11/07/2024 11:25 [...] - 11/08/2024 6:07 AM CDT Performed at: 01 - [place] [id number] [place], [place] [id number] Food Trades Assistants: Javi Daniels PhD, Phone: [phone] us Adrienne Sarah SENIOR SOFTWARE TESTER-TIPPLE REPAIRER LAB - HEMATOLOGY ORD ERABLES Final Result [facility] ACCOUNT BILL [address] [place] [address] * VITAMIN K1 (11/07/2024 11:15 AM CDT) Vitamin K1 0.13 0.10 - 2.20 ng/mL [facility] ACCOUNT BILL Blood BLOOD SPECIMEN / Unknown 11/07/2024 11:15 AM CDT 11/07/2024 Narrative [facility] ACCOUNT BILL - 11/12/2024 2:07 PM CDT Test(s) 078974-Nttunyd K1 was developed and its performance characteristics determined by [facility]. It has not been cleared or approved by the Food and Drug Administration. Performed at: - [facility] [id number] Food Trades Assistants: Fariha Ruiz MD, Phone: [phone] Adrienne [facility] LAB - CHEMISTRY ORDE RABLES Final Result Performing Organization Address [facility] de Phone Number [facility] ACCOUNT BILL [address] [place] [address] * ZINC BLOOD (11/07/2024 11:15 AM CDT) Zinc, Plasma or Serum 67 44 - 115 ug/dL [facility] ACCOUNT BILL Comment:Detection Limit = 5 Blood BLOOD SPECIMEN / Unknown 11/07/2024 11:15 AM CDT 11/07/2024 Narrative [facility] ACCOUNT BILL - 11/12/2024 2:07 PM CDT Test(s) 973784-Arhz, Plasma or Serum was developed and its performance characteristics determined by [facility]. It has not been cleared or approved by the Food and Drug Administration. Performed at: [facility] [address] [id number] Food Trades Assistants: Fariha Ruiz MD, Phone: [phone] Adrienne Sarah [facility] LAB - CHEMISTRY ORDE RABLES Final Result Performing Organization Address [facility] de Phone Number [facility] ACCOUNT BILL [address] [place] [address] * VITAMIN A (11/07/2024 11:15 AM CDT) [...] developed and its performance characteristics determined by [facility]. It has not been cleared or approved by the Food and Drug Administration. Blood BLOOD SPECIMEN / Unknown 11/07/2024 11:15 AM CDT 11/07/2024 Narrative [facility] ACCOUNT BILL - 11/12/2024 8:07 PM CDT Performed at: - [facility] [id number] Food Trades Assistants: Fariha Ruiz MD, Phone: [phone] Adrienne [facility] LAB - CHEMISTRY ORDE JIMMIE Final Result Performing Organization Address [facility]/ZIP Co de Phone Number [facility] ACCOUNT BILL [address] [place] [address] * VITAMIN E (11/07/2024 11:15 AM CDT) Vitamin E Alpha Tocopherol 11.6 7.0 - 25.1 mg/L [facility] ACCOUNT BILL Vitamin E Gamma Tocopherol 0.7 0.5 - 5.5 mg/L [facility] ACCOUNT BILL Comment: Reference intervals for alpha and gamma-tocopherol determined from National Health and Nutrition Examination Survey, 7743-7247. Individuals with alpha-tocopherol levels less than 5.0 mg/L are considered vitamin E deficient. Blood BLOOD SPECIMEN / Unknown 11/07/2024 11:15 AM CDT 11/07/2024 Narrative [facility] ACCOUNT BILL - 11/12/2024 8:07 PM CDT Test(s) 568573-Vkrxhso E(Alpha Tocopherol); 839586- Vitamin E(Gamma Tocopherol) was developed and its performance characteristics determined by [facility]. It has not been cleared or approved by the Food and Drug Administration. Performed at: - [facility] [id number] Food Trades Assistants: Fariha Ruiz MD, Phone: [phone] us Adrienne [facility] LAB - CHEMISTRY KRISTEN SAMUEL Final Result Performing Organization Address City/[facility]/ZIP Co de Phone Number [facility] ACCOUNT BILL [address] [place] [address] * VITAMIN B1 (11/07/2024 11:15 AM CDT) Vitamin B1 Whole Blood 95.6 66.5 - 200.0 nmol/L [facility] ACCOUNT BILL Blood BLOOD SPECIMEN / Unknown 11/07/2024 11:15 AM CDT 11/07/2024 Narrative [facility] ACCOUNT BILL - 11/12/2024 8:07 PM CDT Test(s) 661422-Ddy. B1, Whole Blood was developed and its performance characteristics determined by [facility]. It has not been cleared or approved by the Food and Drug Administration. Performed at: [facility] [id number] Food Trades Assistants: Fariha Ruiz MD, Phone: [phone] us Adrienne Sarah [facility] LAB - CHEMISTRY ORDE RABALIDA Final Result Performing Organization Address [facility] Co de Phone Number [facility] ACCOUNT BILL [address] [place] [address] * PTH INTACT (11/07/2024 11:15 AM CDT) PTH Intact 24 15 - 65 pg/mL [facility] ACCOUNT BILL Blood BLOOD SPECIMEN / Unknown 11/07/2024 11:15 AM CDT 11/07/2024 Narrative [facility] ACCOUNT BILL - 11/08/2024 12:07 PM CDT Performed at: [address] [id number] Food Trades Assistants: Javi Daniels PhD, Phone: [phone] us Adrienne [facility] LAB - CHEMISTRY ORDE RABALIDA Final Result Performing Organization Address City/[facility] Co de Phone Number [facility] ACCOUNT BILL [address] [place] [address] * COPPER BLOOD (11/07/2024 11:15 AM CDT) Copper 127 80 - 158 ug/dL [facility] ACCOUNT BILL Comment:Detection Limit = 5 Blood BLOOD SPECIMEN / Unknown 11/07/2024 11:15 AM CDT 11/07/2024 Narrative [facility] ACCOUNT BILL - 11/12/2024 2:07 PM CDT Test(s) 139284-Knhexu, Serum or Plasma was developed and its performance characteristics determined by [facility]. It has not been cleared or approved by the Food and Drug Administration. Performed at: - [facility] [address] [id number] Food Trades Assistants: Fariha Ruiz MD, Phone: [phone] Adrienne Sarah SENIOR SOFTWARE TESTER-TIPPLE REPAIRER LAB - CHEMISTRY KRISTEN SAMUEL Final Result [facility] ACCOUNT BILL [address] [place] [address] * COMPREHENSIVE METABOLIC PANEL (11/07/2024 11:15 AM CDT) [facility] Glucose 82 70 - 99 mg/dL [facility] [...] 7:06 AM CDT Performed at: - [facility] [place] [address] [place], [place] [id number] Food Trades Assistants: Javi Daniels PhD, Phone: [phone] us Adrienne Sarah APRN-TIPPLE REPAIRER LAB - CHEMISTRY ORDE RABLES Final Result [facility] ACCOUNT BILL [address] [place] [address] * MAGNESIUM BLOOD (11/07/2024 11:15 AM CDT) Magnesium 2.0 1.6 - 2.3 mg/dL [facility] ACCOUNT BILL Blood BLOOD SPECIMEN / Unknown 11/07/2024 11:15 AM CDT 11/07/2024 Narrative [facility] ACCOUNT BILL - 11/08/2024 8:07 AM CDT Performed at: - [facility] [place] [address] [place], [place] [id number] Food Tr[employer] Assistants: Javi Daniels PhD, Phone: [phone] us Adrienne Sarah APRN-TIPPLE REPAIRER LAB - CHEMISTRY ORDE RABLES Final Result Performing Organization Address City/[facility]/ZIP Co de Phone Number [facility] ACCOUNT BILL [address] [place] [address] * VITAMIN B12 (11/07/2024 11:15 AM CDT) Vitamin B12 265 232 - 1,245 pg/mL [facility] ACCOUNT BILL Blood BLOOD SPECIMEN / Unknown 11/07/2024 11:15 AM CDT 11/07/2024 Narrative [facility] ACCOUNT BILL - 11/08/2024 8:07 AM CDT Performed at: - [facility] [place] [address] [place], [place] [id number] Food Tr[employer] Assistants: Javi Daniels PhD, Phone: [phone] us Adrienne Sarah APRN-TIPPLE REPAIRER LAB - CHEMISTRY ORDE RABLES Final Result [facility] ACCOUNT BILL [address] [place] [address] * FERRITIN (11/07/2024 11:15 AM CDT) Ferritin 67 15 - 150 ng/mL [facility] ACCOUNT BILL Blood BLOOD SPECIMEN / Unknown 11/07/2024 11:15 AM CDT 11/07/2024 Narrative [facility] ACCOUNT BILL - 11/08/2024 8:07 AM CDT [facility]formed at: [facility] [address] [place], [place] [id number] Food Trades Assistants: Javi Daniels PhD, Phone: [phone] us Adrienne Sarah APRN-TIPPLE REPAIRER LAB - CHEMISTRY KRISTEN SAMUEL Final Result [facility] ACCOUNT BILL [address] [place] [address] from Last 3 Months Insurance [facility] [place] [address] ANTHEM [facility] [place] [address] ANTHEM Advance Directives * Full Code (Latest [...] 4:12 PM 09/01/2016 4:05 PM Care Teams Surgical Instruments Inspector Relationship Specialty Start Date End Date Leonides Broderick MD [address] [place] [address] PCP - General Family Medicine 12/02/14
--- OUTSIDE RECORDS SUMMARY | 2024-12-16 13:05 | XMS_ITS | Clinical Summary ---
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
--- OUTSIDE RECORDS SUMMARY | 2024-12-16 13:05 | XMS_ITS | Encounter Summary ---
Author Organization [facility] Address [address] [place] [address] Care Team Providers Care Core Dipper Name Role Phone Leonides Broderick MD Primary Care Provider [phone] Encounter Details Date Type Department Care Team (Late st Contact Info) Description 11/13/2024 Results Follow-Up [facility] [address] [facility] [address] [place] [address] Adrienne Sarah, STORE HOST-SCHOOL TRAFFIC GUARD [address] [address] Social History Tobacco Use Types Packs/Day [...] and heating? Not hard at all 05/08/2024 [facility] [place] [facility] - Occupational Stress [...] any time in the [facility] were you homeless or living in a long-term (including now)? No 05/08/2024 Comments No Sex [...] Entry Date Author No 05/08/2024 12:39 PM STRATEGIC CLIENT EXECUTIVE Dana Curran RN documented in this encounter Plan of Treatment Upcoming Encounters Date Type Department Care Team (Late st Contact Info) Description 05/08/2025 10:00 AM STRATEGIC CLIENT EXECUTIVE Office Visit [facility] [address] [facility] [facility] [address] [place] [address] Adrienne Sarah, STORE HOST[employer]SCHOOL TRAFFIC GUARD [address] [place] [address] documented as of this encounter Visit Diagnoses Not on filedocumented in this encounter Care Teams Core Dipper Relationship Specialty Start Date End Date Leonides Broderick MD [address] [place] [address] PCP - General Family Medicine 12/02/14 documented as of this encounter
--- OUTSIDE RECORDS SUMMARY | 2024-12-16 13:05 | XMS_ITS | Clinical Summary ---
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 Iron deficiency anemia 07/02/2021 Breast mass 05/27/2013 Nephrolithiasis Breast pain Mastodynia Kidney stone Resolved Problems Problem Noted Date Diagnosed Date Resolved Date Breast lump 05/27/2013 Breast lump 05/27/2013 Encounters Date Type Department Care Team Description 12/11/2024 External Device Data [facility] ABSTRACTION Provider, Abstract 12/10/2024 External Device Data [facility] ABSTRACTION Provider, Abstract 10/29/2024 External Device Data [facility] ABSTRACTION Provider, Abstract 10/09/2024 External Device Data [facility] ABSTRACTION Provider, Abstract 10/08/2024 External Device Data [facility] ABSTRACTION Provider, Abstract from Last 3 Months Family History Medical [...] on file Legal Sex Female 10:13 AM 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 [address] PCP - General Family Practice 07/02/21
== END 2024-12-16 12:38 | disposition home or self-care (01) ==
PROVIDERS: PCP Family Medicine; Visit Provider Physician Assistant Medical
DX: R59.0 Localized enlarged lymph nodes (principal)
CPT/HCPCS: 76536

== ENCOUNTER 2025-03-05 09:06 | Outpatient (CLI) | payer BC, SELFPAY ==
--- NOTE | ~2025-03-05 | MM_ITS ---
EXAMINATION: MM screening pranay BI w danial HISTORY: Screening. TECHNIQUE: Craniocaudal and mediolateral oblique 3-D tomosynthesis images were obtained and synthetic 2-D images were generated. CAD analysis was submitted and interpreted. COMPARISON: 2023, 2022, and 2021. BREAST PARENCHYMAL COMPOSITION: Dense: The breasts are heterogeneously dense FINDINGS: There are findings consistent with the known breast cysts. No suspicious masses are seen. There are no suspicious calcifications. No unexplained architectural distortion is seen. There are no skin or nipple abnormalities identified. There is no adenopathy seen on the images submitted. IMPRESSION: No mammographic evidence to suggest malignancy is seen. The patient may return to screening mammography as per ACR guidelines. BI-RADS 2 - Benign. Reviewed, dictated and finalized at location C. 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
== END 2025-03-05 09:07 | disposition home or self-care (01) ==
PROVIDERS: PCP Family Medicine; Visit Provider Physician Assistant Medical
DX: Z12.31 Encounter for screening mammogram for malignant neoplasm of breast (principal)
CPT/HCPCS: 77063; 77067